=== PATIENT | male | born 1960 | race Caucasian/White ===

== ENCOUNTER 2018-06-15 00:34 | Emergency (ER) | payer OTHER ==
[2018-06-15 01:07] LABS: BASOPHILS # (AUTO) 0.1 10^3/uL (0.0-0.1); BASOPHILS % (AUTO) 0.8 %; EOSINOPHILS # (AUTO) 0.2 10^3/uL (0.0-0.7); EOSINOPHILS % (AUTO) 2.3 %; HGB - HEMOGLOBIN 13.5 g/dL (14.0-18.0); LYMPHOCYTES # (AUTO) 2.1 10^3/uL (1.5-3.5); LYMPHOCYTES % (AUTO) 20.4 %; MEAN CORPUSCULAR HEMOGLOBIN 29.9 pg (27.0-31.0); MEAN CORPUSCULAR HGB CONC 33.5 g/dL (32.0-36.0); MEAN CORPUSCULAR VOLUME 89.2 fL (80.0-94.0); MEAN PLATELET VOLUME 7.6 fL (7.4-11.4); MONOCYTES # (AUTO) 0.9 10^3/uL (0.0-1.0); MONOCYTES % (AUTO) 8.6 %; NEUTROPHILS # (AUTO) 7.1 10^3/uL (1.5-6.6); NEUTROPHILS % (AUTO) 67.9 %; PLT - PLATELET COUNT 248 10^3/uL (130-450); RED BLOOD COUNT 4.51 10^6/uL (4.70-6.10); RED CELL DISTRIBUTION WIDTH 13.9 % (12.0-15.0); WHITE BLOOD COUNT 10.4 x10^3/uL (4.8-10.8)
[2018-06-15 01:20] LABS: ALBUMIN 4.2 g/dL (3.2-5.5); ALBUMIN/GLOBULIN RATIO 1.4 (1.0-2.2); BILIRUBIN,TOTAL 0.5 mg/dL (0.2-1.0); CALCIUM 9.7 mg/dL (8.5-10.3); TOTAL PROTEIN 7.2 g/dL (6.7-8.2)
--- NOTE | 2018-06-15 01:50 | ED Physician Documentation ---
PD HPI CHEST PAIN - Stated complaint Stated Complaint: CP/CONFUSED - Chief complaint Chief Complaint: Neuro - History obtained from History obtained from: Patient, Friend - History of Present Illness Timing - onset: Enter time (23:00), Today Timing - onset during: Light activity Timing - details: Gradual onset, Waxing and waning Quality: Pain Location: Substernal, Right chest Radiation: No: Jaw, Neck, Back, Abdominal, Left upper extremity, Right upper extremity Improved by: Nothing Worsened by: Other (no exacerbating factors) Associated symptoms: No: Shortness of air, Diaphoresis, Nausea, Vomiting, Feeling faint / dizzy, General Weakness, Palpitations, Cough Similar symptoms before: Has not had sx before Recently seen: Not recently seen - Additional information Additional information: c/o mid/right chest pain since 11 PM while ambulating in his house. friend (lives with patient) notes intermittent slurred speech, although this is chronic. She also notes some mild and intermittent confusion since this morning. She says she came across a bottle of flexeril that had been prescribed 3 days a go and is now empty; she is not confident with how many were in there, but she thinks there were 30 pills. Review of Systems Constitutional: reports: Reviewed and negative Cardiac: reports: Chest pain / pressure. denies: Palpitations, Pedal edema, Calf pain Respiratory: reports: Reviewed and negative GI: reports: Reviewed and negative Musculoskeletal: denies: Neck pain, Back pain Neurologic: reports: Confused. denies: Generalized weakness, Focal weakness, Numbness, Altered mental status, Headache PD PAST MEDICAL HISTORY - Past Medical History Neuro: Headaches Psych: Depression, Anxiety, Bipolar disorder - Past Surgical History Past Surgical History: No General: Appendectomy Ortho: Shoulder arthroplasty, Other - Present Medications Home Medications: Ambulatory Orders Medication Instructions Recorded Confirmed Bupropion HCl [Bupropion Xl] 300 mg PO DAILY 06/15/18 06/15/18 Cyclobenzaprine [Flexeril] 10 mg PO TID 06/15/18 06/15/18 Gabapentin 800 mg PO TID 06/15/18 06/15/18 Ibuprofen 800 mg PO PRN PRN 06/15/18 06/15/18 QUEtiapine [SEROquel] 400 mg PO ACHS 06/15/18 06/15/18 buPROPion [Wellbutrin Xl] 150 mg PO DAILY 06/15/18 06/15/18 busPIRone [Buspar] 15 mg PO BID 06/15/18 06/15/18 rOPINIRole [Requip] 1 mg PO ACHS 06/15/18 06/15/18 - Allergies Allergies/Adverse Reactions: Allergies Allergy/AdvReac Type Severity Reaction Status Date / Time No Known Drug Allergies Allergy Verified 06/15/18 01:01 - Social History Does the pt smoke?: Yes Smoking Status: Current every day smoker Does the pt drink ETOH?: Yes Does the pt have substance abuse?: No - Immunizations Immunizations are current?: Yes PD ED PE NORMAL - Vitals Vital signs reviewed: Yes - General General: Alert and oriented X 3, No acute distress, Well developed/nourished, Other (occasional twitching in extremities without rhythmic contractions nor coordinated with other limbs) - HEENT HEENT: PERRL, EOMI, Moist mucous membranes - Neck Neck: Supple, no meningeal sign - Cardiac Cardiac: RRR, No murmur, No gallop, No rub - Respiratory Respiratory: No respiratory distress, Clear bilaterally - Abdomen Abdomen: Soft, Non tender - Derm Derm: Normal color, Warm and dry - Extremities Extremities: No edema - Neuro Neuro: Alert and oriented X 3, 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, No motor deficit, No sensory deficit, Normal speech Eye Opening: To Voice Motor: Obeys Commands Verbal: Oriented GCS Score: 14 Results - Vitals Vitals: Oxygen O2 Source Room air - EKG (time done) No standard instances Rate: Rate (enter#) (110), Tachy Rhythm: Sinus tachycardia Stuart: Normal Intervals: Normal [place] QRS: Normal Ischemia: Normal ST segments - Labs Labs: Laboratory Tests 06/15/18 06/15/18 06/15/18 00:58 00:58 00:58 WBC 10.4 RBC 4.51 L Hgb 13.5 L Hct 40.3 L MCV 89.2 MCH 29.9 MCHC 33.5 RDW 13.9 Plt Count 248 MPV 7.6 Neut # (Auto) 7.1 H Lymph # (Auto) 2.1 [place] # (Auto) 0.9 Eos # (Auto) 0.2 Baso # (Auto) 0.1 Absolute Nucleated RBC 0.00 Nucleated RBC % 0.0 Sodium 133 L Potassium 3.3 L Chloride 99 L Carbon Dioxide 25 Anion Gap 9.0 BUN 25 H Creatinine 2.0 H Estimated GFR (MDRD) 35 L Glucose 115 H Calcium 9.7 Total Bilirubin 0.5 AST 17 ALT 17 Alkaline Phosphatase 57 Troponin I < 0.04 Total Protein 7.2 Albumin 4.2 Globulin 3.0 Albumin/Globulin Ratio 1.4 Lipase 29 - Rads (name of study) chest xray Radiology: Prelim report reviewed, See rad report CT head Radiology: Prelim report reviewed, See rad report PD MEDICAL DECISION MAKING - ED course Complexity details: reviewed results, re-evaluated patient, considered differential, d/w patient ED course: During ED stay, he exhibited decreasing frequency of his twitching and this eventually resolved completely. Friend/roommate says patient typically has pulse b/w 100-110. I suspect some of the symptoms/signs are due to overdose of flexeril (sounds like he took 30 tablets in the span of 3 days). However, I emphasized the importance of following-up, as he might need further testing, particularly for his chest pain. Departure - Departure Disposition: 01 Home, Self Care Clinical Impression: Altered mental status Qualifiers: Altered mental status type: unspecified Qualified Code(s): R41.82 - Altered mental status, unspecified Overdose Qualifiers: Encounter type: initial encounter Injury intent: accidental or unintentional Qualified Code(s): T50.901A - Poisoning by unspecified drugs, medicaments and biological substances, accidental (unintentional), initial encounter Condition: Good Instructions: ED Altered Loc, ED Confusion, ED Overdose Accidental Comments: Follow up this Friday as scheduled Discharge Date/Time: 06/15/18 04:54
--- NOTE | 2018-06-15 02:49 | XRAY Report ---
Reason: chest pain Procedure Date: 06/15/2018 Accession Number: [id number] / [id number] Procedure: XR - Chest 2 View X-Ray CPT Code: 93904 FULL RESULT: EXAM: CHEST RADIOGRAPHY EXAM DATE: 06/15/2018 02:38 AM. CLINICAL HISTORY: Chest pain. COMPARISON: None. TECHNIQUE: 2 views. FINDINGS: Lungs/Pleura: No focal opacities evident. No pleural effusion. No pneumothorax. Normal volumes. Mediastinum: Heart and mediastinal contours are unremarkable. Other: None. IMPRESSION: Normal 2-view chest radiography. [facility]
--- NOTE | 2018-06-15 02:59 | CT Report ---
Reason: AMS Procedure Date: 06/15/2018 Accession Number: [id number] / [id number] Procedure: CT - HEAD WO CPT Code: FULL RESULT: EXAM: CT HEAD EXAM DATE: 06/15/2018 02:35 AM. CLINICAL HISTORY: Confusion and shaking, decreased mental status COMPARISON: None. TECHNIQUE: Multiaxial CT images were obtained from the foramen magnum to the vertex. Reformats: Sagittal and coronal. IV contrast: None. In accordance with CT protocol optimization, one or more of the following dose reduction techniques were utilized for this exam: automated exposure control, adjustment of mA and/or KV based on patient size, or use of iterative reconstructive technique. FINDINGS: Parenchyma: No intraparenchymal hemorrhage. No evidence of mass, midline shift, or CT findings of infarction. Richardson-white differentiation is distinct. Extraaxial Spaces: Normal for age. No subdural or epidural collections identified. Ventricles: Normal in size and position. Sinuses and Orbits: Imaged paranasal sinuses, orbits, and mastoids show no significant abnormality. Bones: No evidence of fracture or calvarial defect. Other: None. IMPRESSION: Normal head CT. RADIA
[2018-06-15 04:46] VITALS: BP 101/70
== END 2018-06-15 04:54 | disposition home or self-care (01) ==
LOC: ED 00:34
DX: R41.82 Altered mental status, unspecified (principal); T48.1X1A Poisoning by skeletal muscle relaxants [neuromuscular blocking agents], accidental (unintentional), initial encounter; R00.0 Tachycardia, unspecified; F17.200 Nicotine dependence, unspecified, uncomplicated
CPT/HCPCS: 36415; 70450; 71046; 80053; 83690; 84484; 85025; 93005; 99284

== ENCOUNTER 2018-11-10 14:45 | Emergency (ER) | payer OTHER ==
[2018-11-10 14:51] VITALS: BP 117/83
[2018-11-10] MEDS ORDERED: PROPARACAINE 0.5% OPHTH DROPS 15 ML EACHEYE STA (14:59)
--- NOTE | 2018-11-10 15:15 | ED Physician Documentation ---
PD HPI OPHTHO - Stated complaint Stated Complaint: L EYE IRRITATION - Chief complaint Chief Complaint: Heent - History obtained from History obtained from: Patient - History of Present Illness Timing - onset: How many days ago (2) Timing - duration: Days (2) Timing - details: Gradual onset Pain level max: 3 Pain level now: 2 Location: Left Quality / character: Aching Associated symptoms: Redness, Swelling, FB sensation. 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, Wears glasses, Wears contacts, Work related Similar symptoms before: Has not had sx before Recently seen: Not recently seen - Additional information Additional information: not on anticoagulants Review of Systems Eyes: denies: Loss of vision, Decreased vision, Photophobia Endocrine: denies: Easy bruising / bleeding PD PAST MEDICAL HISTORY - Past Medical History Neuro: Headaches Psych: Depression, Anxiety, Bipolar disorder - Past Surgical History Past Surgical History: No General: Appendectomy Ortho: Shoulder arthroplasty, Other - Present Medications Home Medications: Ambulatory Orders Medication Instructions Recorded Confirmed Bupropion HCl [Bupropion Xl] 300 mg PO DAILY 06/15/18 06/15/18 Cyclobenzaprine [Flexeril] 10 mg PO TID 06/15/18 06/15/18 Gabapentin 800 mg PO TID 06/15/18 06/15/18 Ibuprofen 800 mg PO PRN PRN 06/15/18 06/15/18 QUEtiapine [SEROquel] 400 mg PO [facility] 06/15/18 06/15/18 buPROPion [Wellbutrin Xl] 150 mg PO DAILY 06/15/18 06/15/18 busPIRone [Buspar] 15 mg PO BID 06/15/18 06/15/18 rOPINIRole [Requip] 1 mg PO [facility] 06/15/18 06/15/18 - Allergies Allergies/Adverse Reactions: Allergies Allergy/AdvReac Type Severity Reaction Status Date / Time No Known Drug Allergies Allergy Verified 11/10/18 14:51 - Social History Does the pt smoke?: Yes Smoking Status: Current every day smoker Does the pt drink ETOH?: Yes Does the pt have substance abuse?: No - Immunizations Immunizations are current?: Yes PD ED PE NORMAL - Vitals Vital signs reviewed: Yes - General General: Alert and oriented X 3, No acute distress - HEENT HEENT: Atraumatic, PERRL, EOMI, Moist mucous membranes (L eye - Small subconjunctival Hemorrhage, medial aspect. No visible foreign body. No fluorescein uptake. Lids everted.) - Derm Derm: Warm and dry - Neuro Neuro: Alert and oriented X 3 Results - Vitals Vitals: Vital Signs - 24 hr 11/10/18 14:48 Temperature 36.3 C L Heart Rate 91 Respiratory 15 Rate Blood Pressure 117/83 H O2 Saturation 96 Oxygen O2 Source Room air PD MEDICAL DECISION MAKING - ED course Complexity details: considered differential, d/w patient ED course: Patient with a small subconjunctival hemorrhage. Will utilize artificial tears and supportive care. No foreign body. Patient counseled regarding signs and symptoms for which I believe and urgent re-evaluation would be necessary. Patient with good understanding of and agreement to plan and is comfortable going home at this time This document was made in part using voice recognition software. While efforts are made to proofread this document, sound alike and grammatical errors may occur. Departure - Departure Disposition: 01 Home, Self Care Clinical Impression: Subconjunctival hemorrhage of left eye Condition: Good Instructions: ED Eye Injury Subconj Hemorrhage Follow-Up: Francisco Javier Nevarez MD [Provider Admit Priv/Credential] - Within 1 week Comments: Continue artificial tears at home. Putting these in the fridge will help as well. Return if you worsen. This should improve over the next few days. Discharge Date/Time: 11/10/18 15:30
== END 2018-11-10 15:30 | disposition home or self-care (01) ==
LOC: ED 14:45
DX: H11.32 Conjunctival hemorrhage, left eye (principal); F17.200 Nicotine dependence, unspecified, uncomplicated
CPT/HCPCS: 99282; J3490

== ENCOUNTER 2018-12-06 13:57 | Emergency (ER) | payer OTHER ==
[2018-12-06] MEDS ORDERED: SODIUM CHLORIDE 0.9% 1,000 ML IV STA (14:16)
--- NOTE | 2018-12-06 14:16 | ED Physician Documentation ---
PD HPI NVD - Stated complaint Stated Complaint: VOMITING - Chief complaint Chief Complaint: Abd Pain - History obtained from History obtained from: Patient - History of Present Illness Timing - onset: Yesterday Timing - details: Gradual onset Pain level now: 9 Associated symptoms: Abdominal pain, Dizzy. No: Fever, Dysuria Contributing factors: No: Sick contact, Bad food Improved by: Vomiting Similar symptoms before: Has not had sx before Recently seen: Not recently seen - Additonal information Additional information: This 58-year-old man presents with family member complaints that he started vomiting yesterday morning and he just feels like he is shaky "inside". He still dry heaving even now is been unable to keep anything down. He has not checked his temperature but he is felt hot he gets sweaty whenever he vomits. He has had no diarrhea. Has seen no blood in the emesis. He developed pain that started at the umbilicus and is now spread to include the lower abdomen bi laterally that he rates it a 9 out of 10. It seems to relieve itself just momentarily when he vomits. The bumps in the road on the way here did hurt. He has had diminished urinary output but denies any burning. The urine looks cloudy. He is been coughing but only with vomiting and is not bringing up any phlegm. He has been dizzy but has not passed out. Patient had an appendectomy 30 years ago but denies other abdominal surgeries. He denies use of alcohol but does smoke marijuana couple times a week and denies use of any other drugs. He does take mental health medications. He is retired. Patient reports that he is out of his buspirone for 2 days. Review of Systems Constitutional: reports: Sweats. denies: Fever Eyes: denies: Loss of vision Ears: denies: Ear pain Nose: denies: Congestion Throat: denies: Sore throat Cardiac: denies: Palpitations Respiratory: reports: Cough. denies: Dyspnea GI: reports: Abdominal Pain, Nausea, Vomiting. denies: Diarrhea, Hematemesis, Bloody / black stool : reports: Other (Decreased urinary output). denies: Dysuria Skin: denies: Rash Musculoskeletal: denies: Back pain Neurologic: denies: Syncope Endocrine: reports: Other (Patient is not a diabetic) PD PAST MEDICAL HISTORY - Past Medical History Neuro: Headaches Psych: Depression, Anxiety, Bipolar disorder - Past Surgical History Past Surgical History: No General: Appendectomy Ortho: Shoulder arthroplasty, Other - Present Medications Home Medications: Ambulatory Orders Medication Instructions Recorded Confirmed Bupropion HCl [Bupropion Xl] 300 mg PO DAILY 06/15/18 06/15/18 Gabapentin 800 mg PO TID 06/15/18 06/15/18 Ibuprofen 800 mg PO PRN PRN 06/15/18 06/15/18 QUEtiapine [SEROquel] 400 mg PO ACHS 06/15/18 06/15/18 buPROPion [Wellbutrin Xl] 150 mg PO DAILY 06/15/18 06/15/18 busPIRone [Buspar] 15 mg PO BID 06/15/18 06/15/18 rOPINIRole [Requip] 1 mg PO ACHS 06/15/18 06/15/18 Amoxicillin/Potassium Clav 2 each PO BID 7 Days #28 tab.er.12h 12/06/18 [Augmentin Xr 1,000-62.5 Tab] Buspirone HCl 30 mg PO BID #14 tablet 12/06/18 Hydrocodone/Acetaminophen 1 - 2 each PO Q6H PRN #6 tablet 12/06/18 [Hydrocodon-Acetaminophen 5-325] Ondansetron Odt [Zofran] 4 mg TL Q6H PRN #10 tablet 12/06/18 - Allergies Allergies/Adverse Reactions: Allergies Allergy/AdvReac Type Severity Reaction Status Date / Time No Known Drug Allergies Allergy Verified 12/06/18 14:03 - Social History Does the pt smoke?: Yes Smoking Status: Current every day smoker Does the pt drink ETOH?: Yes Does the pt have substance abuse?: No - Immunizations Immunizations are current?: Yes PD ED PE NORMAL - Vitals Vital signs reviewed: Yes - General General: Alert and oriented X 3, Other (Seated on the side of the bed he is got up pain expression on his face. The room does smell of marijuana.) - HEENT HEENT: Atraumatic, PERRL, EOMI, Other (Because membranes are dry) - Neck Neck: Supple, no meningeal sign, No adenopathy, Thyroid normal - Cardiac Cardiac: RRR, No murmur, Strong equal pulses, Other (Mild tachycardia) - Respiratory Respiratory: No respiratory distress, Clear bilaterally - Abdomen Abdomen: Soft, Other (Hypoactive bowel tones in the abdomen appears mildly distended. 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, No motor deficit, No sensory deficit, Normal speech - Psych Psych: Normal mood, Normal affect Results - Vitals Vitals: Vital Signs - 24 hr 12/06/18 12/06/18 12/06/18 14:00 14:02 16:46 Temperature 37.0 C 36.5 C Heart Rate 108 H 108 H 83 Respiratory 18 18 18 Rate Blood Pressure 137/91 H 137/91 H 133/84 H O2 Saturation 99 99 97 Oxygen O2 Source Room air - Labs Labs: Laboratory Tests 12/06/18 12/06/18 12/06/18 14:20 14:27 14:27 WBC 14.6 H RBC 5.44 Hgb 16.2 Hct 48.0 MCV 88.2 MCH 29.8 MCHC 33.8 RDW 13.7 Plt Count 388 MPV 9.4 Neut # (Auto) 11.1 H Lymph # (Auto) 2.1 [place] # (Auto) 1.2 H Eos # (Auto) 0.1 Baso # (Auto) 0.1 Absolute Nucleated RBC 0.00 Nucleated RBC % 0.0 Sodium 137 Potassium 4.0 Chloride 103 Carbon Dioxide 22 Anion Gap 12.0 BUN 20 Creatinine 1.2 Estimated GFR (MDRD) 62 L Glucose 116 H Lactic Acid Calcium 9.8 Total Bilirubin 0.8 AST 24 ALT 32 Alkaline Phosphatase 69 Total Protein 8.4 H Albumin 4.9 Globulin 3.5 Albumin/Globulin Ratio 1.4 Lipase 30 Urine Color YELLOW Urine Clarity CLEAR Urine pH 5.5 Ur Specific [place] 1.020 Urine Protein NEGATIVE Urine Glucose (UA) NEGATIVE Urine Ketones 15 H Urine Occult Blood NEGATIVE Urine Nitrite NEGATIVE Urine Bilirubin NEGATIVE Urine Urobilinogen 0.2 (NORMAL) Ur Leukocyte Esterase NEGATIVE Ur Microscopic Review NOT INDICATED Urine Culture Comments NOT INDICATED 12/06/18 14:46 WBC RBC Hgb Hct MCV MCH MCHC RDW Plt Count MPV Neut # (Auto) Lymph # (Auto) [place] # (Auto) Eos # (Auto) Baso # (Auto) Absolute Nucleated RBC Nucleated RBC % Sodium Potassium Chloride Carbon Dioxide Anion Gap BUN Creatinine Estimated GFR (MDRD) Glucose Lactic Acid 2.0 Calcium Total Bilirubin AST ALT Alkaline Phosphatase Total Protein Albumin Globulin Albumin/Globulin Ratio Lipase Urine Color Urine Clarity Urine pH Ur Specific [place] Urine Protein Urine Glucose (UA) Urine Ketones Urine Occult Blood Urine Nitrite Urine Bilirubin Urine Urobilinogen Ur Leukocyte Esterase Ur Microscopic Review Urine Culture Comments - Rads (name of study) CT abd/pelvis Radiology: See rad report (Diverticulosis) PD MEDICAL DECISION MAKING - ED course Complexity details: reviewed results, re-evaluated patient, d/w patient, d/w family ED course: WBC is mildly elevated with increased PMNs. BUN/Cr, LFTs and electrolytes are normal. U/A + for ketones. Patient given a liter of IV fluids, Dilaudid 2 mg and Zofran 4 mg IV. Patient stated that he was still having about 6 out of 10 pain right below the umbilicus. He was feeling a little bit nauseous still. CT showed diverticulosis without obvious diverticulitis however given the clinical picture I think that is the most likely etiology at this point. The patient is already status post appendectomy and he does not have a surgical abdomen. Of ordered Toradol 30 mg IV as Phenergan 12.5 mg and Zosyn 3.375 mg. Will reevaluate at the following those interventions. Patient also has out of his Wellbutrin and I have agreed to give him an emergency supply until he can refill at the end of this month. He states that he knocked some of them down the sink while he was shaving. 1740: Patient is feeling better still describes a bit of a sensation into the umbilicus like a screwdriver being twisted. He is no longer vomiting. Were to do a p.o. challenge and plan to send him home with oral antibiotics, a couple of doses of hydrocodone and Zofran. I am also been given an emergency fill on his buspirone. Departure - Departure Clinical Impression: Diverticulitis of gastrointestinal tract Abdominal pain Qualifiers: Abdominal location: lower abdomen, unspecified Qualified Code(s): R10.30 - Lower abdominal pain, unspecified Vomiting Qualifiers: Vomiting type: unspecified Vomiting Intractability: non-intractable Nausea presence: with nausea Qualified Code(s): R11.2 - Nausea with vomiting, unspecified Condition: Good Instructions: ED Diverticulitis Follow-Up: Nida Long [facility] [Provider Group] Prescriptions: Amoxicillin/Potassium Clav [Augmentin Xr 1,000-62.5 Tab] 2 each PO BID 7 Days #28 tab.er.12h Buspirone HCl 30 mg PO BID #14 tablet Hydrocodone/Acetaminophen [Hydrocodon-Acetaminophen 5-325] 1 - 2 each PO Q6H PRN #6 tablet PRN Reason: pain Ondansetron Odt [Zofran] 4 mg TL Q6H PRN #10 tablet PRN Reason: Nausea / Vomiting Comments: Eat a bland diet and push fluids. Take the antibiotic 2 tablets twice a day for a week. Use the Zofran if needed for nausea or vomiting. Take hydrocodone if needed for pain but do not drive or operate machinery if you are taking that medication. I have given you a prescription for 7 days of your buspirone at the stated dose of 30 mg twice a day that you are taking prior to losing some of them down the sink. You should follow-up with your primary care provider if you are not significantly improved in 48 hours or return if you have increasing pain, vomiting and unable to keep anything down, fever or other problems arise.
[2018-12-06 14:31] LABS: BASOPHILS # (AUTO) 0.1 10^3/uL (0.0-0.1); BASOPHILS % (AUTO) 0.6 %; EOSINOPHILS # (AUTO) 0.1 10^3/uL (0.0-0.7); EOSINOPHILS % (AUTO) 0.6 %; HGB - HEMOGLOBIN 16.2 g/dL (14.0-18.0); LYMPHOCYTES # (AUTO) 2.1 10^3/uL (1.5-3.5); LYMPHOCYTES % (AUTO) 14.1 %; MEAN CORPUSCULAR HEMOGLOBIN 29.8 pg (27.0-31.0); MEAN CORPUSCULAR HGB CONC 33.8 g/dL (32.0-36.0); MEAN CORPUSCULAR VOLUME 88.2 fL (80.0-94.0); MEAN PLATELET VOLUME 9.4 fL (7.4-11.4); MONOCYTES # (AUTO) 1.2 10^3/uL (0.0-1.0); MONOCYTES % (AUTO) 8.3 %; NEUTROPHILS # (AUTO) 11.1 10^3/uL (1.5-6.6); PLT - PLATELET COUNT 388 10^3/uL (130-450); RED BLOOD COUNT 5.44 10^6/uL (4.70-6.10); RED CELL DISTRIBUTION WIDTH 13.7 % (12.0-15.0); WHITE BLOOD COUNT 14.6 x10^3/uL (4.8-10.8)
[2018-12-06 14:32] LABS: BILIRUBIN,URINE NEGATIVE (NEGATIVE); GLUCOSE, URINE (UA) NEGATIVE (NEGATIVE); KETONES,URINE (UA) 15 mg/dL (NEGATIVE); LEUKOCYTE ESTERASE, URINE NEGATIVE (NEGATIVE); NITRITE,URINE NEGATIVE (NEGATIVE); OCCULT BLOOD,URINE NEGATIVE (NEGATIVE); PH,URINE 5.5 PH (5.0-7.5); PROTEIN,URINE NEGATIVE (NEGATIVE); UROBILINOGEN,URINE 0.2 (NORMAL) E.U./dL (NORMAL)
[2018-12-06 14:34] LABS: CLARITY,URINE CLEAR (CLEAR)
[2018-12-06] MEDS ORDERED: HYDROmorphone 1 MG/ML CARPUJECT IVP STA (14:36)
[2018-12-06] MEDS ORDERED: ONDANSETRON 4 MG/2 ML VIAL IVP STA (14:36)
[2018-12-06 14:45] LABS: ALBUMIN 4.9 g/dL (3.2-5.5); ALBUMIN/GLOBULIN RATIO 1.4 (1.0-2.2); BILIRUBIN,TOTAL 0.8 mg/dL (0.2-1.0); CALCIUM 9.8 mg/dL (8.5-10.3); CREATININE 1.2 mg/dL (0.6-1.2); TOTAL PROTEIN 8.4 g/dL (6.7-8.2)
[2018-12-06] MEDS ORDERED: IOVERSOL 320 100 ML VIAL IVP ONE ×2 (14:52→15:08)
--- NOTE | 2018-12-06 15:30 | CT Report ---
Reason: abd pain Procedure Date: 12/06/2018 Accession Number: [id number] / [id number] Procedure: CT - Abdomen/Pelvis W CPT Code: FULL RESULT: EXAM: CT ABDOMEN AND PELVIS EXAM DATE: 12/06/2018 03:08 PM. CLINICAL HISTORY: Abd pain. COMPARISONS: None. TECHNIQUE: Routine helical CT imaging was performed through the abdomen and pelvis. IV contrast: OPTI 320 90ML. Enteric contrast: No. Reconstructions: Coronal and sagittal. In accordance with CT protocol optimization, one or more of the following dose reduction techniques were utilized for this exam: automated exposure control, adjustment of mA and/or KV based on patient size, or use of iterative reconstructive technique. FINDINGS: Lung Bases: Unremarkable. Liver: Normal. No masses. Gallbladder/Bile Ducts: Unremarkable. Spleen: Normal. Pancreas: Normal. Adrenal Glands: Normal. Kidneys: Normal. No masses or hydronephrosis. Peritoneal Cavity/Bowel: Normal. No free fluid, free air or adenopathy. No masses or acute inflammatory process. Appendix not well seen. Diffuse colonic diverticulosis however no diverticulitis. Pelvic Organs: Normal. The bladder and visualized pelvic organs are within normal limits. Vasculature: No aneurysms or other significant abnormality. Bones: No significant abnormality. Other: Coarse calcific foci are seen in penile parenchyma. IMPRESSION: No acute abdominal pathology. Appendix not seen. Diffuse colonic diverticulosis however no diverticulitis. Coarse calcific foci are seen in penile parenchyma. ?Clinical significance. [facility]
[2018-12-06] MEDS ORDERED: KETOROLAC 30 MG/ML VIAL IVP STA (15:43)
[2018-12-06] MEDS ORDERED: PIPERACILLIN/TAZOBACTAM 3.375 GM in SODIUM CHLORIDE 0.9% MINIBAG 100 ML IV STA (15:43)
[2018-12-06] MEDS ORDERED: PROMETHAZINE INJ 12.5 MG in SODIUM CHLORIDE 0.9% 50 ML IV STA (15:44)
[2018-12-06 18:01] VITALS: BP 128/80
== END 2018-12-06 18:00 | disposition home or self-care (01) ==
LOC: ED 13:57
DX: K57.92 Diverticulitis of intestine, part unspecified, without perforation or abscess without bleeding (principal); T43.296A Underdosing of other antidepressants, initial encounter; Z91.138 Patient's unintentional underdosing of medication regimen for other reason; F17.200 Nicotine dependence, unspecified, uncomplicated
CPT/HCPCS: 36415; 74177; 80053; 81003; 83605; 83690; 85025; 96365; 96368; 96375; 99284; 99285; J1170; J7040; Q9967; 81001; 87086

== ENCOUNTER 2019-01-09 10:34 | Emergency (ER) | payer MEDICAID, OTHER ==
--- NOTE | 2019-01-09 11:06 | ED Physician Documentation ---
History of Present Illness - Stated complaint Stated Complaint: ABD PX - Chief complaint Chief Complaint: Abd Pain - Additonal information Additional information: This is a 58-year-old male with history of anxiety, who presents with General malaise, Vomiting, diarrhea. Patient states began having rhinorrhea and some cough yesterday, he has had some general malaise associated with this, and then began having non-bloody diarrhea and nonbloody, nonbilious vomiting this morning. He has a mild sore throat as well. He also has had some vague abdominal discomfort which was somewhat migratory. This morning upon arriving to the ED he began feeling anxious and like he could not catch his breath. He denies any chest pain. No leg swelling, history of blood clots, hemoptysis. Review of Systems Constitutional: denies: Fever Nose: reports: Rhinorrhea / runny nose Cardiac: denies: Chest pain / pressure Respiratory: reports: Dyspnea GI: denies: Vomiting, Diarrhea : denies: Dysuria Skin: denies: Rash Musculoskeletal: denies: Neck pain Neurologic: reports: Generalized weakness Psychiatric: reports: Anxiety Immunocompromised: denies: Immunocompromised PD PAST MEDICAL HISTORY - Past Medical History Neuro: Headaches Psych: Depression, Anxiety, Bipolar disorder - Past Surgical History Past Surgical History: No General: Appendectomy Ortho: Shoulder arthroplasty, Other - Present Medications Home Medications: Ambulatory Orders Medication Instructions Recorded Confirmed Bupropion HCl [Bupropion Xl] 300 mg PO DAILY 06/15/18 06/15/18 Gabapentin 800 mg PO TID 06/15/18 06/15/18 Ibuprofen 800 mg PO PRN PRN 06/15/18 06/15/18 QUEtiapine [SEROquel] 400 mg PO [facility] 06/15/18 06/15/18 buPROPion [Wellbutrin Xl] 150 mg PO DAILY 06/15/18 06/15/18 busPIRone [Buspar] 15 mg PO BID 06/15/18 06/15/18 rOPINIRole [Requip] 1 mg PO ACHS 06/15/18 06/15/18 Amoxicillin/Potassium Clav 2 each PO BID 7 Days #28 tab.er.12h 12/06/18 [Augmentin Xr 1,000-62.5 Tab] Buspirone HCl 30 mg PO BID #14 tablet 12/06/18 Hydrocodone/Acetaminophen 1 - 2 each PO Q6H PRN #6 tablet 12/06/18 [Hydrocodon-Acetaminophen 5-325] Ondansetron Odt [Zofran] 4 mg TL Q6H PRN #10 tablet 12/06/18 Ondansetron Odt [Zofran] 4 mg TL Q6H PRN #10 tablet 01/09/19 - Allergies Allergies/Adverse Reactions: Allergies Allergy/AdvReac Type Severity Reaction Status Date / Time No Known Drug Allergies Allergy Verified 12/06/18 14:03 - Social History Does the pt smoke?: Yes Smoking Status: Current every day smoker Does the pt drink ETOH?: Yes Does the pt have substance abuse?: No - Immunizations Immunizations are current?: Yes PD ED PE NORMAL - Vitals Vital signs reviewed: Yes - General General: Alert and oriented X 3 - HEENT HEENT: PERRL - Neck Neck: Supple, no meningeal sign - Cardiac Cardiac: RRR - Respiratory Respiratory: No respiratory distress, Other (Slight end expiratory wheeze diffusely, otherwise clear to auscultation) - Abdomen Abdomen: Soft, Non tender, Non distended - Derm Derm: Warm and dry - Extremities Extremities: No deformity - Neuro Neuro: Alert and oriented X 3 Results - Vitals Vitals: Oxygen O2 Source Room air - Labs Labs: Laboratory Tests 01/09/19 01/09/19 01/09/19 10:55 10:55 13:30 WBC 9.5 RBC 5.08 Hgb 15.4 Hct 45.4 MCV 89.4 MCH 30.3 MCHC 33.9 RDW 13.6 Plt Count 376 MPV 9.5 Neut # (Auto) 6.7 H Lymph # (Auto) 1.7 [place] # (Auto) 0.8 Eos # (Auto) 0.1 Baso # (Auto) 0.1 Absolute Nucleated RBC 0.00 Nucleated RBC % 0.0 Sodium 140 Potassium 4.1 Chloride 110 Carbon Dioxide 20 L Anion Gap 10.0 BUN 13 Creatinine 1.0 Estimated GFR (MDRD) 77 L Glucose 124 H Calcium 9.5 Total Bilirubin 0.9 AST 18 ALT 15 Alkaline Phosphatase 59 Troponin I High Sens Total Protein 8.0 Albumin 4.6 Globulin 3.4 Albumin/Globulin Ratio 1.4 Lipase 51 Urine Color YELLOW Urine Clarity CLEAR Urine pH 6.0 Ur Specific [place] 1.020 Urine Protein NEGATIVE Urine Glucose (UA) NEGATIVE Urine Ketones TRACE Urine Occult Blood NEGATIVE Urine Nitrite NEGATIVE Urine Bilirubin NEGATIVE Urine Urobilinogen 0.2 (NORMAL) Ur Leukocyte Esterase NEGATIVE Ur Microscopic Review NOT INDICATED Urine Culture Comments NOT INDICATED 01/09/19 14:05 WBC RBC Hgb Hct MCV MCH MCHC RDW Plt Count MPV Neut # (Auto) Lymph # (Auto) [place] # (Auto) Eos # (Auto) Baso # (Auto) Absolute Nucleated RBC Nucleated RBC % Sodium Potassium Chloride Carbon Dioxide Anion Gap BUN Creatinine Estimated GFR (MDRD) Glucose Calcium Total Bilirubin AST ALT Alkaline Phosphatase Troponin I High Sens 2.3 Total Protein Albumin Globulin Albumin/Globulin Ratio Lipase Urine Color Urine Clarity Urine pH Ur Specific [place] Urine Protein Urine Glucose (UA) Urine Ketones Urine Occult Blood Urine Nitrite Urine Bilirubin Urine Urobilinogen Ur Leukocyte Esterase Ur Microscopic Review Urine Culture Comments - Rads (name of study) CXR Radiology: Other CT abd/pelvis Radiology: Other (Small fat containing umbilical hernia, otherwise unremarkable.) PD MEDICAL DECISION MAKING - ED course Complexity details: considered differential (Viral syndrome, gastroenteritis, biliary colic, enteritis, pancreatitis, pneumonia, pneumothorax) ED course: On arrival patient has unremarkable vital signs but he does appear to be anxious and began hyperventilating while I was in the room. I was able to calm him down and return his breathing rate to normal with prompting, and his oxygen sat uration and pulse remained normal during the entire episode. CXR negative, and on re-evaluation patient's shortness of breath has entirely resolved, consistent with a stress reaction/anxiety. Symptoms and exam are inconsistent with PE or dysrhytmia. Troponin negative, ACS extremely unlikely. CBC, abdominal panel, UA unrevealing. Patient's primary complaint is vomiting and diarrhea. He was given a fluid bolus, and several rounds of zofran. He continued to have some vomiting, CT obtained and did not show an obvious cause of his symptoms. He does have a small umbilical hernia, but this is non-tender and reducible. On re-evaluation patient is feeling better. I discussed our results, and with an additional dose of anti-emetic patient is able to tolerate PO fluids. I think he likely has a viral gastroenteritis. I discussed supportive care and strict return precautions with any worsening or changing symptoms. Abdomen is benign. Patient would like to go home as he now feels that he will be able to hold down fluids. He is discharged in the care of family. Departure - Departure Disposition: 01 Home, Self Care Clinical Impression: Gastroenteritis Condition: Good Instructions: ED Gastroenteritis Viral Follow-Up: Your,PCP [Other] - Within 1 week Prescriptions: Ondansetron Odt [Zofran] 4 mg TL Q6H PRN #10 tablet PRN Reason: Nausea / Vomiting Comments: You were seen today for vomiting and diarrhea, your labs are reassuring, I think you likely have a gastroenteritis or stomach bug which is usually caused by a virus. Your CT scan showed an umbilical hernia, Please follow with your primary care provider on this, if it is causing you any issues you may need to see a surgeon. If you develop vomiting despite the nausea medications, inability to hydrate, or increasing or changing abdominal pain, or any other concerning symptoms, please return to the emergency department. Discharge Date/Time: 01/09/19 17:50
[2019-01-09 11:08] LABS: BASOPHILS # (AUTO) 0.1 10^3/uL (0.0-0.1); BASOPHILS % (AUTO) 0.6 %; EOSINOPHILS # (AUTO) 0.1 10^3/uL (0.0-0.7); EOSINOPHILS % (AUTO) 1.5 %; HGB - HEMOGLOBIN 15.4 g/dL (14.0-18.0); LYMPHOCYTES # (AUTO) 1.7 10^3/uL (1.5-3.5); LYMPHOCYTES % (AUTO) 18.4 %; MEAN CORPUSCULAR HEMOGLOBIN 30.3 pg (27.0-31.0); MEAN CORPUSCULAR HGB CONC 33.9 g/dL (32.0-36.0); MEAN CORPUSCULAR VOLUME 89.4 fL (80.0-94.0); MEAN PLATELET VOLUME 9.5 fL (7.4-11.4); MONOCYTES # (AUTO) 0.8 10^3/uL (0.0-1.0); MONOCYTES % (AUTO) 8.4 %; NEUTROPHILS # (AUTO) 6.7 10^3/uL (1.5-6.6); NEUTROPHILS % (AUTO) 70.7 %; PLT - PLATELET COUNT 376 10^3/uL (130-450); RED BLOOD COUNT 5.08 10^6/uL (4.70-6.10); RED CELL DISTRIBUTION WIDTH 13.6 % (12.0-15.0); WHITE BLOOD COUNT 9.5 x10^3/uL (4.8-10.8)
[2019-01-09] MEDS ORDERED: SODIUM CHLORIDE 0.9% 1,000 ML IV ONE (11:19)
[2019-01-09] MEDS ORDERED: IPRATROPIUM/ALBUTEROL 3 ML NEB INH STA (11:19)
[2019-01-09 11:22] LABS: ALBUMIN 4.6 g/dL (3.2-5.5); ALBUMIN/GLOBULIN RATIO 1.4 (1.0-2.2); BILIRUBIN,TOTAL 0.9 mg/dL (0.2-1.0); CALCIUM 9.5 mg/dL (8.5-10.3)
--- NOTE | 2019-01-09 11:43 | XRAY Report ---
Reason: chest pain Procedure Date: 01/09/2019 Accession Number: [id number] / [id number] Procedure: XR - Chest 1 View X-Ray CPT Code: 45129 FULL RESULT: EXAM: CHEST RADIOGRAPHY EXAM DATE: 01/09/2019 11:36 AM. CLINICAL HISTORY: Chest pain. COMPARISON: CHEST 2 VIEW 06/15/2018 2:23 AM. TECHNIQUE: 1 view. FINDINGS: Lungs/Pleura: Unchanged linear left greater than right basilar pulmonary opacities likely reflect atelectasis or scarring. No new consolidation. No evidence for pneumothorax. Mediastinum: Stable heart size and mediastinum. Other: Probable remote left lateral eighth rib fracture. No acute osseous thoracic abnormality seen. IMPRESSION: No radiographic evidence for acute cardiopulmonary process. RADIA
[2019-01-09 13:36] LABS: BILIRUBIN,URINE NEGATIVE (NEGATIVE); GLUCOSE, URINE (UA) NEGATIVE (NEGATIVE); KETONES,URINE (UA) TRACE mg/dL (NEGATIVE); LEUKOCYTE ESTERASE, URINE NEGATIVE (NEGATIVE); NITRITE,URINE NEGATIVE (NEGATIVE); OCCULT BLOOD,URINE NEGATIVE (NEGATIVE); PROTEIN,URINE NEGATIVE (NEGATIVE); UROBILINOGEN,URINE 0.2 (NORMAL) E.U./dL (NORMAL)
[2019-01-09 13:37] LABS: CLARITY,URINE CLEAR (CLEAR)
[2019-01-09] MEDS ORDERED: FAMOTIDINE 20 MG/2 ML VIAL IVP STA (13:59)
[2019-01-09] MEDS ORDERED: ONDANSETRON 4 MG/2 ML VIAL IVP STA ×2 (13:59→16:27)
[2019-01-09] MEDS ORDERED: IOVERSOL 320 100 ML VIAL IVP ONE ×2 (14:46→14:57)
--- NOTE | 2019-01-09 15:29 | CT Report ---
Reason: vomiting, upper abdominal pain Procedure Date: 01/09/2019 Accession Number: [id number] / [id number] Procedure: CT - Abdomen/Pelvis W CPT Code: FULL RESULT: EXAM: CT ABDOMEN AND PELVIS EXAM DATE: 01/09/2019 02:56 PM. CLINICAL HISTORY: Vomiting, upper abdominal pain. COMPARISONS: ABDOMEN/PELVIS W/ 12/06/2018 2:59 PM. TECHNIQUE: Routine helical CT imaging was performed through the abdomen and pelvis. IV contrast: OPTI 320 90ML. Enteric contrast: No. Reconstructions: Coronal and sagittal. In accordance with CT protocol optimization, one or more of the following dose reduction techniques were utilized for this exam: automated exposure control, adjustment of mA and/or KV based on patient size, or use of iterative reconstructive technique. FINDINGS: Lung Bases: Unremarkable. Liver: Normal. No masses. Gallbladder/Bile Ducts: Unremarkable. Spleen: Normal. Pancreas: Normal. Adrenal Glands: Normal. Kidneys: Normal. No masses or hydronephrosis. Peritoneal Cavity/Bowel: Normal. No free fluid, free air or adenopathy. No masses or acute inflammatory process. No evidence of acute appendicitis. There is a small fat-containing umbilical hernia. Pelvic Organs: Normal. The bladder and visualized pelvic organs are within normal limits. Vasculature: No aneurysms or other significant abnormality. Bones: No significant abnormality. Other: None. IMPRESSION: 1. Small fat-containing umbilical hernia. 2. Otherwise negative. RADIA
[2019-01-09 16:36] VITALS: BP 122/84
[2019-01-09] MEDS ORDERED: ONDANSETRON ODT 4 MG Prepack 2 TL PRN (17:00)
== END 2019-01-09 17:50 | disposition home or self-care (01) ==
LOC: ED 10:34
DX: K52.9 Noninfective gastroenteritis and colitis, unspecified (principal); K42.9 Umbilical hernia without obstruction or gangrene; F41.9 Anxiety disorder, unspecified; F17.200 Nicotine dependence, unspecified, uncomplicated
CPT/HCPCS: 36415; 71045; 74177; 80053; 81003; 83690; 84484; 85025; 94640; 96361; 96374; 96375; 99284; Q9967; 81001; 87086

== ENCOUNTER 2019-02-03 15:41 | Emergency (ER) | payer MEDICAID ==
--- NOTE | 2019-02-03 16:49 | ED Physician Documentation ---
PD HPI HEADACHE - Stated complaint Stated Complaint: DIZZY - Chief complaint Chief Complaint: Neuro - History obtained from History obtained from: Patient - History of Present Illness Timing - onset: Yesterday Timing - details: Gradual onset (He states he woke yesterday morning with the pain in the right posterior neck radiating up into the back of the head with a feeling of spasms at times. He states that he feels as though the neck pain and spasm is pulling on his right side of his face and he feels like his eyeball is being pulled backward. This does sound unusual. He denies any particular injury. He denies any rash or fevers. He denies any focal weaknesses.), Still present Worst headache ever?: Worst headache ever? Location: Back, Right Quality: Aching, Stabbing (He feels like the pain is sharp in the right base of the head and upper neck with tightness feeling at times.) Associated symptoms: Eye pain. No: Fever, Nausea, Vomiting, Weakness, Numbness Improved by: No: Rest, Dark room Worsened by: No: Light, Noise Contributing factors: No: Anticoagulated, Recent illness, Trauma Similar symptoms before: No diagnosis (He has had similar pains intermittently in the past few months lasting for just a few hours at a time. He has had not sought evaluation for them. He denies any history of migraines.) Review of Systems Constitutional: denies: Fever, Chills Eyes: denies: Loss of vision, Photophobia Nose: denies: Rhinorrhea / runny nose, Congestion Throat: denies: Sore throat Respiratory: denies: Cough GI: denies: Abdominal Pain, Nausea, Vomiting, Diarrhea Skin: denies: Rash, Lesions Neurologic: reports: Headache. denies: Focal weakness, Numbness, Near syncope, Confused, Altered mental status, Head injury PD PAST MEDICAL HISTORY - Past Medical History Neuro: Headaches Psych: Depression, Anxiety, Bipolar disorder - Past Surgical History Past Surgical History: No General: Appendectomy Ortho: Shoulder arthroplasty, Other - Present Medications Home Medications: Ambulatory Orders Medication Instructions Recorded Confirmed Bupropion HCl [Bupropion Xl] 300 mg PO DAILY 06/15/18 06/15/18 Gabapentin 800 mg PO TID 06/15/18 06/15/18 Ibuprofen 800 mg PO PRN PRN 06/15/18 06/15/18 QUEtiapine [SEROquel] 400 mg PO ACHS 06/15/18 06/15/18 buPROPion [Wellbutrin Xl] 150 mg PO DAILY 06/15/18 06/15/18 busPIRone [Buspar] 15 mg PO BID 06/15/18 06/15/18 rOPINIRole [Requip] 1 mg PO ACHS 06/15/18 06/15/18 Amoxicillin/Potassium Clav 2 each PO BID 7 Days #28 tab.er.12h 12/06/18 [Augmentin Xr 1,000-62.5 Tab] Buspirone HCl 30 mg PO BID #14 tablet 12/06/18 Hydrocodone/Acetaminophen 1 - 2 each PO Q6H PRN #6 tablet 12/06/18 [Hydrocodon-Acetaminophen 5-325] Ondansetron Odt [Zofran] 4 mg TL Q6H PRN #10 tablet 12/06/18 Ondansetron Odt [Zofran] 4 mg TL Q6H PRN #10 tablet 01/09/19 Amoxicillin 500 mg PO TID #21 capsule 02/03/19 Cetirizine [ZyrTEC] 10 mg PO DAILY #15 tablet 02/03/19 Naproxen 500 mg PO BID #20 tablet 02/03/19 Oxycodone HCl/Acetaminophen 1 each PO Q6H PRN #20 tablet 02/03/19 [Percocet 5-325 mg Tablet] Tizanidine HCl 4 mg PO TID PRN #25 capsule 02/03/19 dexAMETHasone [Decadron] 4 mg PO DAILY #5 tablet 02/03/19 - Allergies Allergies/Adverse Reactions: Allergies Allergy/AdvReac Type Severity Reaction Status Date / Time No Known Drug Allergies Allergy Verified 02/03/19 16:10 - Social History Does the pt smoke?: Yes Smoking Status: Current every day smoker Does the pt drink ETOH?: Yes Does the pt have substance abuse?: No - Immunizations Immunizations are current?: Yes PD ED PE NORMAL - Vitals Vital signs reviewed: Yes - General General: Alert and oriented X 3, Well developed/nourished, Other (He appears uncomfortable due to pain in the right back of the neck. He has guarded range of motion of the neck. He has tenderness in the right upper trapezius muscle near the insertion at the base of the skull.) - HEENT HEENT: Atraumatic, PERRL, EOMI, Ears normal, Pharynx benign - Neck Neck: Supple, no meningeal sign, No adenopathy - Cardiac Cardiac: RRR, No murmur - Respiratory Respiratory: Clear bilaterally - Derm Derm: Normal color, Warm and dry - Extremities Extremities: No tenderness to palpate, Normal ROM s pain - Neuro Neuro: Alert and oriented X 3, patient case coordinator 2-12 intact, No motor deficit, No sensory deficit, Normal speech, Other Eye Opening: Spontaneous Motor: Obeys Commands Verbal: Oriented GCS Score: 15 Results - Vitals Vitals: Vital Signs - 24 hr 02/03/19 02/03/19 16:10 17:43 Temperature 37.1 C Heart Rate 88 82 Respiratory 17 20 Rate Blood Pressure 118/70 107/70 O2 Saturation 96 97 Oxygen O2 Source Room air - Labs Labs: Laboratory Tests 02/03/19 02/03/19 17:30 17:30 WBC 7.3 RBC 4.92 Hgb 15.2 Hct 44.9 MCV 91.3 MCH 30.9 MCHC 33.9 RDW 13.8 Plt Count 294 MPV 9.2 Neut # (Auto) 4.7 Lymph # (Auto) 1.3 [place] # (Auto) 1.0 Eos # (Auto) 0.1 Baso # (Auto) 0.1 Absolute Nucleated RBC 0.00 Nucleated RBC % 0.0 Manual Slide Review Indicated Platelet Estimate NORMAL (130-450,000) Platelet Morphology NORMAL APPEARANCE RBC Morph Micro Appear NORMAL APPEARANCE Sodium 135 Potassium 3.7 Chloride 103 Carbon Dioxide 23 Anion Gap 9.0 BUN 14 Creatinine 1.1 Estimated GFR (MDRD) 69 L Glucose 76 Calcium 9.3 Total Bilirubin 0.4 AST 17 ALT 16 Alkaline Phosphatase 64 Total Protein 7.8 Albumin 4.7 Globulin 3.1 Albumin/Globulin Ratio 1.5 Lipase 39 - Rads (name of study) head and neck agnio Radiology: Prelim report reviewed (no acute process; chronic maxillary sinusitis.), See rad report PD MEDICAL DECISION MAKING - ED course Complexity details: reviewed results, considered differential (Consider some vascular cause given the sharp pain extending to the base of the head. It may be just muscular. We will get a CT and CTA of the neck and head to better evaluate for issues such as dissection, tumors, vascular problems.), d/w patient Departure - Departure Disposition: 01 Home, Self Care Clinical Impression: Neck pain on right side Sinusitis Qualifiers: Sinusitis location: maxillary Chronicity: chronic Qualified Code(s): J32.0 - Chronic maxillary sinusitis Condition: Stable Record reviewed to determine appropriate education?: Yes Instructions: ED Neck Pain No Trauma, ED Sinusitis Abx Tx Prescriptions: Amoxicillin 500 mg PO TID #21 capsule Cetirizine [ZyrTEC] 10 mg PO DAILY #15 tablet dexAMETHasone [Decadron] 4 mg PO DAILY #5 tablet Naproxen 500 mg PO BID #20 tablet Oxycodone HCl/Acetaminophen [Percocet 5-325 mg Tablet] 1 each PO Q6H PRN #20 tablet PRN Reason: pain Tizanidine HCl 4 mg PO TID PRN #25 capsule PRN Reason: Spasms Comments: Heat and gentle stretching for the neck. There may be some strain and muscle spasms going on and so use the anti-inflammatory and muscle relaxants as prescribed. Add pain medicine if needed. Your CT scans are normal without any signs of vascular problems such as clots or dissections. There are no structural abnormalities such as bleeding tumors swelling. There is some sinus inflammation in the maxillary area, so some of the facial and eye symptoms could be from sinus inflammation instead. I presume the neck pain is from a muscular cause. Recheck if other symptoms develop over the next few days such as localized weakness, fevers, rash, inc reasing symptoms.
[2019-02-03] MEDS ORDERED: KETOROLAC 30 MG/ML VIAL IVP STA (17:09)
[2019-02-03] MEDS ORDERED: SODIUM CHLORIDE 0.9% 1,000 ML IV ONE (17:09)
[2019-02-03] MEDS ORDERED: HYDROmorphone 2 MG/ML VIAL IVP STA (17:09)
[2019-02-03] MEDS ORDERED: IOVERSOL 320 100 ML VIAL IVP ONE ×2 (17:11→18:44)
[2019-02-03 17:38] LABS: BASOPHILS # (AUTO) 0.1 10^3/uL (0.0-0.1); EOSINOPHILS # (AUTO) 0.1 10^3/uL (0.0-0.7); EOSINOPHILS % (AUTO) 1.6 %; HGB - HEMOGLOBIN 15.2 g/dL (14.0-18.0); LYMPHOCYTES # (AUTO) 1.3 10^3/uL (1.5-3.5); LYMPHOCYTES % (AUTO) 18.4 %; MEAN CORPUSCULAR HEMOGLOBIN 30.9 pg (27.0-31.0); MEAN CORPUSCULAR HGB CONC 33.9 g/dL (32.0-36.0); MEAN CORPUSCULAR VOLUME 91.3 fL (80.0-94.0); MEAN PLATELET VOLUME 9.2 fL (7.4-11.4); MONOCYTES % (AUTO) 13.7 %; NEUTROPHILS # (AUTO) 4.7 10^3/uL (1.5-6.6); NEUTROPHILS % (AUTO) 64.9 %; PLT - PLATELET COUNT 294 10^3/uL (130-450); RED BLOOD COUNT 4.92 10^6/uL (4.70-6.10); RED CELL DISTRIBUTION WIDTH 13.8 % (12.0-15.0); WHITE BLOOD COUNT 7.3 x10^3/uL (4.8-10.8)
[2019-02-03 17:51] LABS: ALBUMIN 4.7 g/dL (3.2-5.5); ALBUMIN/GLOBULIN RATIO 1.5 (1.0-2.2); BILIRUBIN,TOTAL 0.4 mg/dL (0.2-1.0); CALCIUM 9.3 mg/dL (8.5-10.3); CREATININE 1.1 mg/dL (0.6-1.2); TOTAL PROTEIN 7.8 g/dL (6.7-8.2)
[2019-02-03] MEDS ORDERED: HYDROmorphone 1 MG/ML CARPUJECT IVP STA ×2 (18:07→19:24)
[2019-02-03 18:17] LABS: PLATELET ESTIMATE, MANUAL NORMAL (130-450,000) (NORMAL); PLATELET MORPHOLOGY NORMAL APPEARANCE (NORMAL); RBC MORPHOLOGY (MULTIPLE) NORMAL APPEARANCE (NORMAL)
--- NOTE | 2019-02-03 19:21 | CT Report ---
Reason: right posterior neck pain/headache Procedure Date: 02/03/2019 Accession Number: [id number] / [id number] Procedure: CT - ANGIO NECK W CPT Code: Final Report FULL RESULT: EXAM: CT ANGIOGRAM NECK EXAM DATE: 02/03/2019 06:34 PM. CLINICAL HISTORY: Right posterior neck pain/headache. COMPARISON: HEAD W/O 06/15/2018 2:18 AM. HEAD ANGIO 02/03/2019 6:21 PM. TECHNIQUE: Routine axial helical imaging was performed from the skull base through the aortic arch. Reconstructions: Routine multiplanar 3D MIP reconstructions. IV Contrast: Optiray-320 mL. Evaluation of arterial stenosis is based on a NASCET method of measurement. In accordance with CT protocol optimization, one or more of the following dose reduction techniques were utilized for this exam: automated exposure control, adjustment of mA and/or KV based on patient size, or use of iterative reconstructive technique. FINDINGS: There is subsegmental atelectasis demonstrated within the bilateral lung apices. There is respiratory motion superimposed on the images of the lung apices. There are multilevel mild to moderate degenerative changes of the cervical spine. There is mucoperiosteal thickening of the bilateral maxillary sinus camacho. There is circumferential mucosal thickening in the right maxillary sinus. There is extensive mucosal thickening demonstrated within the left maxillary sinus. There is mild mucosal thickening in the bilateral anterior and posterior ethmoid complexes. The sphenoid air cells are normally aerated. The bilateral frontal sinuses and frontal recesses are normally aerated. The imaged portions of the orbits are normal in appearance. The openings of the eustachian tubes are normally aerated. The torus tubarius are symmetric. The bilateral parapharyngeal spaces exhibit normal fat densities. The retropharyngeal space exhibits normal fat densities. The right and left parotid spaces enhance symmetrically. The bilateral submandibular glands exhibit symmetric size and enhancement. The extrinsic and the intrinsic muscles of the tongue exhibit symmetric densities. There is no significant adenopathy in the level IA rene chain. There is no significant adenopathy within the bilateral level IB rene chains. The bilateral submandibular glands exhibit symmetric size and enhancement. The free and fixed margins of the epiglottis are normal in appearance. The preepiglottic space and paraglottic spaces exhibit normal fat densities. The false and true cords are normal in appearance. The subglottic space is normal. The bilateral thyroid lobes enhance symmetrically. There is an area of mucosal thickening along the right wall of the trachea measuring 10 mm (97, 2). The cervical and thoracic esophagus within the provided field of view is unremarkable. There is no significant adenopathy by size criteria in the bilateral deep cervical or spinal accessory chains. 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 The left common carotid artery, carotid bulb, and extracranial left internal carotid artery are smooth and nonstenotic. The right common carotid artery, carotid bulb, and extracranial right internal carotid artery are smooth and nonstenotic. The right vertebral artery V1, V2, V3 segments are without flow limiting stenosis. The left vertebral artery V1, V2, and V3 segments are without flow limiting stenosis. IMPRESSION: 1. There is no hemodynamically significant stenosis within the neck. 2. There are changes of mucoperiosteal thickening of the bilateral maxillary sinus camacho consistent with changes from a chronic maxillary sinusitis. RAD[facility]
[2019-02-03] MEDS ORDERED: DEXAMETHASONE 10 MG/ML VIAL IVP STA (19:24)
--- NOTE | 2019-02-03 19:34 | CT Report ---
Reason: right neck pain/headache Procedure Date: 02/03/2019 Accession Number: [id number] / [id number] Procedure: CT - ANGIO HEAD W/WO CPT Code: Final Report FULL RESULT: EXAM: CT ANGIOGRAM HEAD. CT SCAN OF THE HEAD WITHOUT AND WITH CONTRAST. EXAM DATE: 02/03/2019 06:34 PM CLINICAL HISTORY: Right neck pain/headache. COMPARISON: HEAD W/O 06/15/2018 2:18 AM. TECHNIQUE: - CT Scan Head: Using a multidetector scanner, axial images were acquired from the foramen magnum to the skull vertex prior to and following contrast administration. - CT Angiogram: Using a multidetector scanner, high-resolution axial images were acquired from the skull base through vertex following rapid infusion of intravenous contrast. Reformats: Multiplanar MIP reformats were reconstructed. Nascet criteria used for stenosis measurement. IV Contrast: 80 cc Optiray 320. In accordance with CT protocol optimization, one or more of the following dose reduction techniques were utilized for this exam: automated exposure control, adjustment of mA and/or KV based on patient size, or use of iterative reconstructive technique. FINDINGS: CT scan of the head without contrast: There is mucoperiosteal thickening of the left maxillary sinus camacho and to a lesser degree the right maxillary sinus camacho. These are consistent with changes of chronic sinusitis. There is a mild degree of mucosal thickening in the bilateral posterior ethmoid complexes. There is mild mucosal thickening within the anterior right ethmoid complex. The bilateral mastoid air cells are normally aerated. There is no acute fracture of the calvaria. The imaged portions of the orbits are normal in appearance. There is no acute collection of blood or blood products, or mass. There is no midline shift. The booth-white differentiation remains distinct. Cerebral volume and ventricular size are normal. CT scan of the head with contrast: The imaged portions of the orbits are normal in appearance. There is normal enhancement within the deep venous sinuses. There is normal enhancement within the brain parenchyma. CTA of the head: The right vertebral artery intradural segment is smooth and nonstenotic. The left vertebral artery intradural segment is smooth and nonstenotic. The left posterior-inferior cerebellar artery is without flow-limiting stenosis. 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 The left anterior inferior cerebellar artery is smooth and nonstenotic. The basilar artery is without flow-limiting stenosis. The left superior cerebellar artery is without flow-limiting stenosis. The right superior cerebellar artery is without flow-limiting stenosis. There is a moderate sized right posterior communicating artery. The right P1 and P2 segments of the right posterior cerebral artery are without flow-limiting stenosis. The left P1 and P2 segments of the left posterior cerebral artery are without flow-limiting stenosis. The right intracranial internal carotid artery is smooth and nonstenotic. The left intracranial internal carotid artery is smooth and nonstenotic. The right M1 and proximal M2 segments of the right middle cerebral artery are smooth and nonstenotic. The left M1 and proximal M2 segments of the left middle cerebral artery are smooth and nonstenotic. The right A1 segment is smooth and nonstenotic. The left A1 segment is smooth and nonstenotic. There is a small anterior communicating artery. The right A2 segment of the right anterior cerebral artery is smooth and nonstenotic. The left A2 segment of the left anterior cerebral artery is smooth and nonstenotic. There is normal enhancement within the deep venous sinuses. IMPRESSION: 1. There is no acute intracranial abnormality. 2. There is mucoperiosteal thickening of the bilateral maxillary sinuses greater on the left than right. This would be consistent with changes of chronic maxillary sinusitis. 3. Normal postcontrast CT scan of the head. 4. There is no hemodynamically significant stenosis within the head. There is no evidence of cerebral aneurysm.
[2019-02-03 19:44] VITALS: BP 121/85
== END 2019-02-03 19:50 | disposition home or self-care (01) ==
LOC: ED 15:41
DX: M54.2 Cervicalgia (principal); J32.0 Chronic maxillary sinusitis; F17.200 Nicotine dependence, unspecified, uncomplicated
CPT/HCPCS: 36415; 70496; 70498; 80053; 83690; 85025; 96361; 96374; 96375; 96376; 99283; 99284; J1170; Q9967

== ENCOUNTER 2019-02-07 14:15 | Observation (INO) | payer MEDICAID ==
[2019-02-07 15:57] LABS: BASOPHILS % (AUTO) 0.4 %; EOSINOPHILS % (AUTO) 0.1 %; HGB - HEMOGLOBIN 14.7 g/dL (14.0-18.0); LYMPHOCYTES # (AUTO) 1.3 10^3/uL (1.5-3.5); LYMPHOCYTES % (AUTO) 18.9 %; MEAN CORPUSCULAR HGB CONC 34.2 g/dL (32.0-36.0); MEAN CORPUSCULAR VOLUME 90.7 fL (80.0-94.0); MEAN PLATELET VOLUME 9.5 fL (7.4-11.4); MONOCYTES # (AUTO) 0.7 10^3/uL (0.0-1.0); MONOCYTES % (AUTO) 10.3 %; NEUTROPHILS # (AUTO) 4.8 10^3/uL (1.5-6.6); PLT - PLATELET COUNT 280 10^3/uL (130-450); RED BLOOD COUNT 4.74 10^6/uL (4.70-6.10); RED CELL DISTRIBUTION WIDTH 13.8 % (12.0-15.0); WHITE BLOOD COUNT 6.9 x10^3/uL (4.8-10.8)
[2019-02-07 16:13] LABS: ALBUMIN 4.5 g/dL (3.2-5.5); ALBUMIN/GLOBULIN RATIO 1.4 (1.0-2.2); BILIRUBIN,TOTAL 0.4 mg/dL (0.2-1.0); CALCIUM 9.1 mg/dL (8.5-10.3); TOTAL PROTEIN 7.8 g/dL (6.7-8.2)
[2019-02-07] MEDS ORDERED: SODIUM CHLORIDE 0.9% 1,000 ML IV ONE ×2 (16:23→22:46)
[2019-02-07] MEDS ORDERED: ONDANSETRON 4 MG/2 ML VIAL IVP STA (16:23)
[2019-02-07] MEDS ORDERED: HYDROmorphone 1 MG/ML CARPUJECT IVP STA ×3 (16:23→20:47)
--- NOTE | 2019-02-07 16:25 | ED Physician Documentation ---
PD HPI ABD PAIN - Stated complaint Stated Complaint: ABD PX - Chief complaint Chief Complaint: Abd Pain - History obtained from History obtained from: Patient - History of Present Illness Timing - onset: Other (59-year-old gentleman with remote history of appendectomy presents with abdominal pain in the right upper quadrant that he describes as burning starting yesterday. Its associated with nausea and vomiting. He has not had a bowel movements in 24 hours and also notes dark urination that is less frequent than normal without dysuria.) Review of Systems Ten Systems: 10 systems reviewed and negative Constitutional: reports: Chills. denies: Fever Cardiac: denies: Chest pain / pressure, Palpitations Respiratory: denies: Dyspnea, Cough GI: reports: Abdominal Pain, Nausea, Vomiting PD PAST MEDICAL HISTORY - Past Medical History Neuro: Headaches Psych: Depression, Anxiety, Bipolar disorder - Past Surgical History Past Surgical History: No General: Appendectomy Ortho: Shoulder arthroplasty, Other - Present Medications Home Medications: Ambulatory Orders Medication Instructions Recorded Confirmed Bupropion HCl [Bupropion Xl] 300 mg PO DAILY 06/15/18 06/15/18 Gabapentin 800 mg PO TID 06/15/18 06/15/18 Ibuprofen 800 mg PO PRN PRN 06/15/18 06/15/18 QUEtiapine [SEROquel] 400 mg PO ACHS 06/15/18 06/15/18 buPROPion [Wellbutrin Xl] 150 mg PO DAILY 06/15/18 06/15/18 busPIRone [Buspar] 15 mg PO BID 06/15/18 06/15/18 rOPINIRole [Requip] 1 mg PO ACHS 06/15/18 06/15/18 Amoxicillin/Potassium Clav 2 each PO BID 7 Days #28 tab.er.12h 12/06/18 [Augmentin Xr 1,000-62.5 Tab] Buspirone HCl 30 mg PO BID #14 tablet 12/06/18 Hydrocodone/Acetaminophen 1 - 2 each PO Q6H PRN #6 tablet 12/06/18 [Hydrocodon-Acetaminophen 5-325] Ondansetron Odt [Zofran] 4 mg TL Q6H PRN #10 tablet 12/06/18 Ondansetron Odt [Zofran] 4 mg TL Q6H PRN #10 tablet 01/09/19 Amoxicillin 500 mg PO TID #21 capsule 02/03/19 Cetirizine [ZyrTEC] 10 mg PO DAILY #15 tablet 02/03/19 Naproxen 500 mg PO BID #20 tablet 02/03/19 Oxycodone HCl/Acetaminophen 1 each PO Q6H PRN #20 tablet 02/03/19 [Percocet 5-325 mg Tablet] Tizanidine HCl 4 mg PO TID PRN #25 capsule 02/03/19 dexAMETHasone [Decadron] 4 mg PO DAILY #5 tablet 02/03/19 - Allergies Allergies/Adverse Reactions: Allergies Allergy/AdvReac Type Severity Reaction Status Date / Time No Known Drug Allergies Allergy Verified 02/03/19 16:10 - Social History Does the pt smoke?: Yes Smoking Status: Current every day smoker Does the pt drink ETOH?: Yes Does the pt have substance abuse?: No - Immunizations Immunizations are current?: Yes PD ED PE NORMAL - Vitals Vital signs reviewed: Yes - General General: Alert and oriented X 3, No acute distress - HEENT HEENT: PERRL, EOMI - Neck Neck: Supple, no meningeal sign, No bony TTP - Cardiac Cardiac: RRR, No murmur - Respiratory Respiratory: No respiratory distress, Clear bilaterally - Abdomen Abdomen: Normal bowel sounds, Other (He is exquisitely tender in the right upper quadrant with some mild diffuse tenderness otherwise. He does have a positive Lai sign.) - Back Back: No CVA TTP, No spinal TTP - Derm Derm: Normal color, Warm and dry - Extremities Extremities: No edema, No calf tenderness / cord - Neuro Neuro: Alert and oriented X 3, Normal speech Results - Vitals Vitals: Vital Signs - 24 hr 02/07/19 02/07/19 02/07/19 14:31 16:44 18:00 Temperature 36.8 C Heart Rate 91 85 81 Respiratory 18 16 16 Rate Blood Pressure 111/65 128/82 H 123/86 H O2 Saturation 98 100 97 02/07/19 20:00 Temperature Heart Rate 83 Respiratory 18 Rate Blood Pressure 125/84 H O2 Saturation 98 Oxygen O2 Source Room air - Labs Labs: Laboratory Tests 02/07/19 02/07/19 02/07/19 15:45 15:45 22:09 WBC 6.9 RBC 4.74 Hgb 14.7 Hct 43.0 MCV 90.7 MCH 31.0 MCHC 34.2 RDW 13.8 Plt Count 280 MPV 9.5 Neut # (Auto) 4.8 Lymph # (Auto) 1.3 L [place] # (Auto) 0.7 Eos # (Auto) 0.0 Baso # (Auto) 0.0 Absolute Nucleated RBC 0.00 Nucleated RBC % 0.0 Sodium 133 L Potassium 3.5 Chloride 100 L Carbon Dioxide 25 Anion Gap 8.0 BUN 12 Creatinine 1.0 Estimated GFR (MDRD) 77 L Glucose 91 Calcium 9.1 Total Bilirubin 0.4 AST 20 ALT 18 Alkaline Phosphatase 62 Total Protein 7.8 Albumin 4.5 Globulin 3.3 Albumin/Globulin Ratio 1.4 Lipase 31 Urine Color YELLOW Urine Clarity CLEAR Urine pH 6.5 Ur Specific [place] <=1.005 Urine Protein NEGATIVE Urine Glucose (UA) NEGATIVE Urine Ketones 15 H Urine Occult Blood TRACE-LYSE Urine Nitrite NEGATIVE Urine Bilirubin NEGATIVE Urine Urobilinogen 0.2 (NORMAL) Ur Leukocyte Esterase NEGATIVE Ur Microscopic Review NOT INDICATED Urine Culture Comments NOT INDICATED Urine Opiates Screen Ur Oxycodone Screen Urine Methadone Screen Ur Propoxyphene Screen Ur Barbiturates Screen Ur Tricyclics Screen Ur Phencyclidine Scrn Ur Amphetamine Screen U Methamphetamines Scrn U Benzodiazepines Scrn Urine Cocaine Screen U Cannabinoids Screen 02/07/19 22:18 WBC RBC Hgb Hct MCV MCH MCHC RDW Plt Count MPV Neut # (Auto) Lymph # (Auto) [place] # (Auto) Eos # (Auto) Baso # (Auto) Absolute Nucleated RBC Nucleated RBC % Sodium Potassium Chloride Carbon Dioxide Anion Gap BUN Creatinine Estimated GFR (MDRD) Glucose Calcium Total Bilirubin AST ALT Alkaline Phosphatase Total Protein Albumin Globulin Albumin/Globulin Ratio Lipase Urine Color Urine Clarity Urine pH Ur Specific [place] Urine Protein Urine Glucose (UA) Urine Ketones Urine Occult Blood Urine Nitrite Urine Bilirubin Urine Urobilinogen Ur Leukocyte Esterase Ur Microscopic Review Urine Culture Comments Urine Opiates Screen POSITIVE H Ur Oxycodone Screen NEGATIVE Urine Methadone Screen NEGATIVE Ur Propoxyphene Screen NEGATIVE Ur Barbiturates Screen NEGATIVE Ur Tricyclics Screen POSITIVE H Ur Phencyclidine Scrn NEGATIVE Ur Amphetamine Screen NEGATIVE U Methamphetamines Scrn NEGATIVE U Benzodiazepines Scrn NEGATIVE Urine Cocaine Screen NEGATIVE U Cannabinoids Screen POSITIVE H PD MEDICAL DECISION MAKING - ED course ED course: This is a 59-year-old gentleman with acute onset right upper quadrant pain. Initial evaluation was most consistent with a biliary etiology but labs and ultrasound were negative. Subsequent to that he had a large volume diarrheal bowel movement, so now suspecting more of a viral etiology. CT imaging was also done and negative. Further review of his chart shows fairly frequent episodes of visiting for abdominal pain, querying about marijuana he admits to frequent use but not in a month. However when I mentioned that it may be relevance, he said well I guess I will have to quit using marijuana. He does admit to relief from hot shower. It was pretty difficult to get a hold of his symptoms, he had several rounds of medications for both pain and nausea without claimed relief and as such I spoke with Dr. Garcia for observation at 10:45 PM. Departure - Departure Disposition: ED Place in Observation Clinical Impression: Gastroenteritis Abdominal pain Qualifiers: Abdominal location: right upper quadrant Qualified Code(s): R10.11 - Right upper quadrant pain Condition: Stable Record reviewed to determine appropriate education?: Yes
--- NOTE | 2019-02-07 18:54 | Ultrasound Report ---
Reason: RUQ pain Procedure Date: 02/07/2019 Accession Number: [id number] / [id number] Procedure: US - Abdomen Limited CPT Code: Final Report FULL RESULT: EXAM: ABDOMEN ULTRASOUND LIMITED, RUQ EXAM DATE: 02/07/2019 06:26 PM. CLINICAL HISTORY: Right upper quadrant and epigastric pain. Nausea/vomiting since yesterday. Worsening today. COMPARISON: ABDOMEN/PELVIS W/ 01/09/2019 2:48 PM. TECHNIQUE: Real-time scanning was performed with static images obtained. FINDINGS: LIVER: Normal in size but increased in echogenicity. No suspicious hepatic masses identified. The liver surface is smooth. PORTAL VEIN: Patent with hepatopedal flow. BILIARY: The common bile duct is normal in caliber. No intrahepatic biliary dilatation. GALLBLADDER: No gallstones, gallbladder wall thickening or pericholecystic fluid. There is a 3 mm sludge ball versus polyp in the gallbladder neck. RIGHT KIDNEY: Normal in size without hydronephrosis, large shadowing stones or perinephric fluid collections. PANCREAS: The visualized portions of the pancreas are unremarkable. IVC: The visualized portions of the inferior vena cava are unremarkable. AORTA: The visualized aorta is normal in caliber. ASCITES: No significant free fluid. Measurements: Liver: 13.7 cm Gallbladder wall thickness: 2 mm Common bile duct: 4 mm Right kidney: 10.8 cm IMPRESSION: 1. No gallstones or cholecystitis. 2. Fatty liver. RADIA
[2019-02-07] MEDS ORDERED: KETOROLAC 30 MG/ML VIAL IVP STA (19:22)
[2019-02-07] MEDS ORDERED: IOVERSOL 320 100 ML VIAL IVP ONE ×2 (19:26→20:08)
--- NOTE | 2019-02-07 20:39 | CT Report ---
Reason: IV only, RUQ pain/diarrhea Procedure Date: 02/07/2019 Accession Number: [id number] / [id number] Procedure: CT - Abdomen/Pelvis W CPT Code: Final Report FULL RESULT: EXAM: CT ABDOMEN AND PELVIS EXAM DATE: 02/07/2019 08:06 PM. CLINICAL HISTORY: Right upper quadrant pain/diarrhea. COMPARISONS: ABDOMEN/PELVIS W/ 01/09/2019 2:48 PM. TECHNIQUE: Routine helical CT imaging was performed through the abdomen and pelvis. IV contrast: Opti 320 100 mL. Enteric contrast: No. Reconstructions: Coronal and sagittal. In accordance with CT protocol optimization, one or more of the following dose reduction techniques were utilized for this exam: automated exposure control, adjustment of mA and/or KV based on patient size, or use of iterative reconstructive technique. FINDINGS: Lung Bases: Unremarkable. Liver: Normal. No masses. Gallbladder/Bile Ducts: Unremarkable. Spleen: Normal. Pancreas: Normal. Adrenal Glands: Normal. Kidneys: Normal. No masses or hydronephrosis. Peritoneal Cavity/Bowel: Normal. No free fluid, free air or adenopathy. No masses or acute inflammatory process. The appendix is not seen. Pelvic Organs: Normal. The bladder and visualized pelvic organs are within normal limits. Vasculature: No aneurysms or other significant abnormality. Bones: No significant abnormality. IMPRESSION: 1. No acute findings are seen. See above. RADIA
[2019-02-07] MEDS ORDERED: METOCLOPRAMIDE 10 MG/2 ML VIAL IVP STA (20:47)
[2019-02-07] MEDS: ONDANSETRON ODT 4 MG Prepack 2 TL STA ×2 (21:20→22:52)
[2019-02-07] MEDS: HYDROcod/ACET 5/325 Prepack 4 PO STA ×2 (21:20→22:52)
[2019-02-07] MEDS ORDERED: HALOPERIDOL 5 MG/ML VIAL IVP ONE (21:39)
[2019-02-07 22:23] LABS: MUDS CUTOFF CONCENTRATIONS CUTOFF CONC BELOW:
[2019-02-07 22:24] LABS: BILIRUBIN,URINE NEGATIVE (NEGATIVE); GLUCOSE, URINE (UA) NEGATIVE (NEGATIVE); KETONES,URINE (UA) 15 mg/dL (NEGATIVE); LEUKOCYTE ESTERASE, URINE NEGATIVE (NEGATIVE); NITRITE,URINE NEGATIVE (NEGATIVE); OCCULT BLOOD,URINE TRACE-LYSE (NEGATIVE); PH,URINE 6.5 PH (5.0-7.5); PROTEIN,URINE NEGATIVE (NEGATIVE); UROBILINOGEN,URINE 0.2 (NORMAL) E.U./dL (NORMAL)
[2019-02-07 22:26] LABS: CLARITY,URINE CLEAR (CLEAR)
[2019-02-07 22:49] LABS: AMPHETAMINE SCREEN,URINE NEGATIVE (NEGATIVE); BENZODIAZEPINES SCREEN, URINE NEGATIVE (NEGATIVE); COCAINE SCREEN URINE NEGATIVE (NEGATIVE); METHADONE SCREEN, URINE NEGATIVE (NEGATIVE); METHAMPHETAMINES SCREEN, URINE NEGATIVE (NEGATIVE); OPIATE SCREEN, URINE POSITIVE (NEGATIVE); TRICYCLIC ANTIDEPRESSANT,URINE POSITIVE (NEGATIVE)
[2019-02-07] MEDS ORDERED: ONDANSETRON 4 MG/2 ML VIAL IVP PRN (22:49)
[2019-02-07] MEDS ORDERED: SODIUM CHLORIDE FLUSH 0.9% 10 ML SYRINGE IVP PRN (22:49)
[2019-02-07 22:50] LABS: OXYCODONE SCREEN, URINE NEGATIVE (NEGATIVE); PROPOXYPHENE SCREEN, URINE NEGATIVE (NEGATIVE)
[2019-02-07] MEDS ORDERED: PROCHLORPERAZINE 10 MG/2 ML VIAL IVP PRN (22:52)
[2019-02-07] MEDS ORDERED: LACTATED RINGERS 1,000 ML IV SCH (23:00)
--- NOTE | 2019-02-07 23:54 | HISTORY & PHYSICAL EXAMINATION ---
Chief Complaint - Chief Complaint Chief Complaint: Nausea and vomiting History of Present Illness - Admitted From Admitted From:: Home - History Obtained From Records Reviewed: Yes History obtained from: Patient, ER Physician, EMR - History of Present Illness HPI Comment/Other: This is a 59-year-old male with a past medical history significant for d epression, anxiety, marijuana use, tobacco use who presents complaining of nausea vomiting that began Friday morning. He reports that since that time is been unable to keep anything down and continues to have nonbloody emesis. He has associated epigastric pain that has become diffuse abdominal pain. He also reported associated diarrhea yesterday. He has not had a lot of bowel movements but he states they are loose with quite a bit of volume. He reports no fevers but does endorse chills. He reports chest pain and dyspnea while vomiting. He also is complaining of a sore throat. Reports no similar symptoms in the past. He reports no sick contacts. He does smoke marijuana and reports most recent use was about 1 week ago. He uses a few times a week and has been smoking for over 20 years. In the emergency department, his vitals were unremarkable. His labs were unrevealing. His urine drug screen was positive for opiates, tricyclics, marijuana. Initially underwent a right upper quadrant ultrasound which was unremarkable. Due to his ongoing pain, a CT of the abdomen and pelvis was performed which was unremarkable. He was given multiple doses of IV Dilaudid, Zofran, Reglan, Haldol to help control his nausea without improvement. Given he has intractable nausea and vomiting, medicine was consulted for admission. History - Past Medical History Cardiovascular: reports: None Respiratory: reports: None Neuro: reports: Headaches Endocrine/Autoimmune: reports: None GI: reports: None : reports: None HEENT: reports: None Psych: reports: Depression, Anxiety, Bipolar disorder Musculoskeletal: reports: Osteoarthritis Derm: reports: None MRSA Hx?: No - Past Surgical History General: reports: Appendectomy Ortho: reports: Shoulder arthroplasty - Family & Social History Family History Comment/Other: He reports that his grandfather had cardiac problems including coronary artery disease. He reports no other family history. Living arrangement: At home Living Situation: With spouse/s.o. Social History Notes: He moved to [facility] 1 year ago from [facility]. He is currently on disability because of shoulder surgery and knee surgery. 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 He lives with his girlfriend. He smokes about a half a pack to pack per day for at least the past 30 years. He reports no alcohol use. He does smoke marijuana a few times a week for the past 20 years. Denies any other illicit drug use. - Substance History Use: Uses substance without health or social issues: Tobacco, Cannabis - POLST Patient has POLST: No Meds/Allgy - Home Medications Home Medications: Ambulatory Orders Medication Instructions Recorded Confirmed Bupropion HCl [Bupropion Xl] 300 mg PO DAILY 06/15/18 06/15/18 Gabapentin 800 mg PO TID 06/15/18 06/15/18 Ibuprofen 800 mg PO PRN PRN 06/15/18 06/15/18 QUEtiapine [SEROquel] 400 mg PO ACHS 06/15/18 06/15/18 buPROPion [Wellbutrin Xl] 150 mg PO DAILY 06/15/18 06/15/18 busPIRone [Buspar] 15 mg PO BID 06/15/18 06/15/18 rOPINIRole [Requip] 1 mg PO ACHS 06/15/18 06/15/18 Amoxicillin/Potassium Clav 2 each PO BID 7 Days #28 tab.er.12h 12/06/18 [Augmentin Xr 1,000-62.5 Tab] Buspirone HCl 30 mg PO BID #14 tablet 12/06/18 Hydrocodone/Acetaminophen 1 - 2 each PO Q6H PRN #6 tablet 12/06/18 [Hydrocodon-Acetaminophen 5-325] Ondansetron Odt [Zofran] 4 mg TL Q6H PRN #10 tablet 12/06/18 Ondansetron Odt [Zofran] 4 mg TL Q6H PRN #10 tablet 01/09/19 Amoxicillin 500 mg PO TID #21 capsule 02/03/19 Cetirizine [ZyrTEC] 10 mg PO DAILY #15 tablet 02/03/19 Naproxen 500 mg PO BID #20 tablet 02/03/19 Oxycodone HCl/Acetaminophen 1 each PO Q6H PRN #20 tablet 02/03/19 [Percocet 5-325 mg Tablet] Tizanidine HCl 4 mg PO TID PRN #25 capsule 02/03/19 dexAMETHasone [Decadron] 4 mg PO DAILY #5 tablet 02/03/19 - Allergies Allergies/Adverse Reactions: Allergies Allergy/AdvReac Type Severity Reaction Status Date / Time No Known Drug Allergies Allergy Verified 02/03/19 16:10 Review of Systems - Constitutional Constitutional: reports: Fatigue, Chills, Weakness, Poor appetite. denies: Fever - Cardiovascular Cariovascular: reports: Chest pain (When vomiting). denies: Edema, Exertional dyspnea, Decr. exercise tolerance - Respiratory Respiratory: reports: SOB at rest (When vomiting). denies: Cough, SOB with exer tion - Gastrointestinal Gastrointestinal: reports: Abdominal pain, Diarrhea, Change in bowel habits, Nausea, Vomiting, Reflux/heartburn, Poor appetite. denies: Constipation, Black stools, Bloody stools, Yimi blood emesis - Genitourinary Genitourinary: denies: Dysuria, Frequency, Urgency - Musculoskeletal Musculoskeletal: denies: Muscle weakness - Neurological Neurological: reports: General weakness, Numbness. denies: Focal weakness - Psychiatric Psychiatric: reports: Depression - All Other Systems All Other Systems: reports: Reviewed and negative Prior Level of Functionality: He is independent with ADL's. Exam - Vital Signs Reviewed Vital Signs: Yes Vital Signs: Vital Signs x48h Temp Pulse Resp BP Pulse Ox 02/07/19 22:00 36.7 C 85 19 126/84 H 98 02/07/19 20:00 83 18 125/84 H 98 02/07/19 18:00 81 16 123/86 H 97 02/07/19 16:44 85 16 128/82 H 100 - Physical Exam General Appearance: positive: Alert, Mild distress Eyes Bilateral: positive: Normal inspection ENT: positive: ENT inspection nml. negative: Dry mucous membranes Neck: positive: Nml inspection Respiratory: positive: No respiratory distress. negative: Wheezes, Rales, Rhonchi Cardiovascular: positive: Regular rate & rhythm, No murmur. negative: Tachycardia, Bradycardia, Systolic murmur, Diastolic murmur Abdomen: positive: Nml bowel sounds, No distention, Tenderness (Diffuse tenderness.). negative: Guarding, Rebound Skin: positive: No rash, Warm, Dry Extremities: positive: No pedal edema Neurologic/Psychiatric: positive: Oriented x3, Other (No focal motor deficits.). negative: Disoriented to person, Disoriented to place, Disoriented to time Conclusion/Plan - Problem List (1) Intractable nausea and vomiting Conclusion/Plan: Suspect is likely secondary to either gastroenteritis or hyperemesis from marijuana use. Imaging was fortunately unremarkable as well as his labs. We will start him on clear liquid diet. IV hydration with lactated Ringer's. Will use Zofran and Compazine as antiemetics. We will advance his diet as tolerated and hope for discharge tomorrow morning as long as he is able to tolerate a diet. (2) Abdominal pain Conclusion/Plan: Abdominal pain was initially right upper quadrant but is now more generalized. Imaging was unremarkable. Suspect this may be gastritis secondary to his m ultiple episodes of vomiting or may also be secondary to suspected gastroenteritis as a cause of his nausea, vomiting, and diarrhea. We will start him on Protonix. We will advance his diet as tolerated. Will obtain an EKG to rule out cardiac causes. Will limit using IV pain medications in preparation for likely discharge tomorrow morning. Qualifiers: Abdominal location: generalized Qualified Code(s): R10.84 - Generalized abdominal pain (3) Depression with anxiety Conclusion/Plan: Stable. We will continue his home Wellbutrin, BuSpar, Seroquel, gabapentin. (4) Marijuana use Conclusion/Plan: This may be contributing to his nausea and vomiting. Discussed with patient regarding hyperemesis syndrome from cannabis use. Informed him that the treatment is discontinuation of the marijuana use. (5) Tobacco use Conclusion/Plan: We will provide him with a nicotine patch. - Lab Results Lab results reviewed: Yes Fish Bones: 02/07/19 15:45 02/07/19 15:45 - Diagnostic Imaging Results Diagnostic Imaging Results: positive: Final report reviewed Core Measures - Anticipated LOS I expect patient to be DC'd or transferred within 96 hours.: Yes - Issues Hospital Issues and Management Plan: Intractable nausea vomiting likely due to gastroenteritis or marijuana use requiring IV antiemetics. - DVT/VTE - Prophylaxis VTE/DVT Device ordered at admit?: Yes VTE/DVT Prophylaxis med ordered at admit?: Yes
[2019-02-07] MEDS ORDERED: QUEtiapine 100 MG TABLET PO SCH (23:55)
[2019-02-08] MEDS ORDERED: ACETAMINOPHEN 500 MG TABLET PO PRN (00:13)
[2019-02-08] MEDS ORDERED: KETOROLAC 30 MG/ML VIAL IVP PRN (00:13)
[2019-02-08] MEDS: SODIUM CHLORIDE FLUSH 0.9% 10 ML SYRINGE IVP SCH ×2 (00:38→09:34)
[2019-02-08 05:46] LABS: BASOPHILS % (AUTO) 0.4 %; EOSINOPHILS # (AUTO) 0.1 10^3/uL (0.0-0.7); EOSINOPHILS % (AUTO) 1.3 %; HGB - HEMOGLOBIN 12.2 g/dL (14.0-18.0); LYMPHOCYTES # (AUTO) 2.1 10^3/uL (1.5-3.5); MEAN CORPUSCULAR HEMOGLOBIN 29.8 pg (27.0-31.0); MEAN CORPUSCULAR HGB CONC 32.4 g/dL (32.0-36.0); MEAN CORPUSCULAR VOLUME 91.7 fL (80.0-94.0); MEAN PLATELET VOLUME 9.8 fL (7.4-11.4); MONOCYTES # (AUTO) 0.6 10^3/uL (0.0-1.0); MONOCYTES % (AUTO) 13.1 %; NEUTROPHILS # (AUTO) 1.9 10^3/uL (1.5-6.6); NEUTROPHILS % (AUTO) 39.8 %; PLT - PLATELET COUNT 204 10^3/uL (130-450); RED CELL DISTRIBUTION WIDTH 14.1 % (12.0-15.0); WHITE BLOOD COUNT 4.7 x10^3/uL (4.8-10.8)
[2019-02-08 05:53] LABS: CALCIUM 8.2 mg/dL (8.5-10.3); CREATININE 0.9 mg/dL (0.6-1.2); PHOSPHORUS 3.2 mg/dL (2.5-4.6)
--- NOTE | 2019-02-08 06:54 | Discharge Plan ---
Discharge Plan Problem Reviewed?: Yes Diet: Regular Activity Restrictions: Activity as Tolerated Shower Restrictions: No Driving Restrictions: No No Smoking: If you smoke, Please STOP! Call for help. Disposition: 01 Home, Self Care Condition: Good Prescriptions: Ondansetron Odt [Zofran Odt] 4 mg TL Q6H PRN #10 tablet PRN Reason: Nausea / Vomiting Instruction Topics: Ondansetron tablets Health Concerns: You were in the hospital because of nausea and vomiting as well as abdominal pain. You underwent a CT scan of your abdomen which did not show anything acute. Your blood work was also normal. Your nausea and vomiting may have been secondary to stomach flu or your marijuana use. It is recommended you stop smoking marijuana as this may cause the symptoms to occur again. You are now able to tolerate a diet and are stable for discharge. Plan of Treatment: There were no changes made to your medications. You were provided with a Zofran prescription which you may take as needed for nausea. Care Goals: It is recommended you follow-up with your primary care physician within 1 week. Assessment: Patient expressed understanding of the treatment plan and goals.
[2019-02-08] MEDS ORDERED: PANTOPRAZOLE 40 MG TABLET PO SCH (07:00)
--- NOTE | 2019-02-08 07:33 | DISCHARGE SUMMARY ---
"Discharge Summary Admit Date: 02/07/19 Discharge Date: 02/08/19 Discharging Provider: Isrrael He Code Status: Attempt Resuscitation Condition at Discharge: Good Discharge Disposition: 01 Home, Self Care - DIAGNOSES Admission Diagnoses: Intractable nausea and vomiting Abdominal pain Depression with anxiety Marijuana use Tobacco use Discharge Diagnoses with Status of Each Condition: Intractable nausea and vomiting - resolved. Gastroenteritis - improved. Depression with anxiety - stable. Marijuana use - stable. Tobacco use - stable. - HPI History of Present Illness: This is a 59-year-old male with a past medical history significant for depression, anxiety, marijuana use, tobacco use who presents complaining of nausea vomiting that began Friday morning. He reports that since that time is been unable to keep anything down and continues to have nonbloody emesis. He has associated epigastric pain that has become diffuse abdominal pain. He also reported associated diarrhea yesterday. He has not had a lot of bowel movements but he states they are loose with quite a bit of volume. He reports no fevers but does endorse chills. He reports chest pain and dyspnea while vomiting. He also is complaining of a sore throat. Reports no similar symptoms in the past. He reports no sick contacts. He does smoke marijuana and reports most recent use was about 1 week ago. He uses a few times a week and has been smoking for over 20 years. In the emergency department, his vitals were unremarkable. His labs were unrevealing. His urine drug screen was positive for opiates, tricyclics, marijuana. Initially underwent a right upper quadrant ultrasound which was unremarkable. Due to his ongoing pain, a CT of the abdomen and pelvis was performed which was unremarkable. He was given multiple doses of IV Dilaudid, Zofran, Reglan, Haldol to help control his nausea without improvement. Given he has intractable nausea and vomiting, medicine was consulted for admission. - CONSULTS | PROCEDURES Procedures: CT of the abdomen and pelvis. Right upper quadrant ultrasound. - HOSPITAL COURSE Hospital Course: He was admitted for intractable nausea and vomiting after failing multiple anti- emetics in the ER. Imaging of his abdomen was unremarkable. Upon arrival to the floor, he was started on a clear liquid diet and was able to tolerate that well. Diet was advanced without any emesis. He did not require any antiemetics. Abdominal pain improved and he did not require any IV pain medications. He was discharged the following morning. Suspect his symptoms may have been secondary to marijuana use or gastroenteritis. I did employee counselor him on marijuana cessation as this can occur again. He was provided with a prescription for Zofran as needed. - ALLERGIES Allergies/Adverse Reactions: Allergies Allergy/AdvReac Type Severity Reaction Status Date / Time No Known Drug Allergies Allergy Verified 02/03/19 16:10 - MEDICATIONS Home Medications: Ambulatory Orders Medication Instructions Recorded Confirmed Bupropion HCl [Bupropion Xl] 300 mg PO DAILY 06/15/18 06/15/18 Gabapentin 800 mg PO TID 06/15/18 06/15/18 QUEtiapine [SEROquel] 400 mg PO ACHS 06/15/18 06/15/18 busPIRone [Buspar] 15 mg PO BID 06/15/18 06/15/18 Buspirone HCl 30 mg PO BID #14 tablet 12/06/18 Ondansetron Odt [Zofran Odt] 4 mg TL Q6H PRN #10 tablet 02/08/19 QUEtiapine [SEROquel] 400 mg PO QPM tablet 02/08/19 - PHYSICAL EXAM AT DISCHARGE General Appearance: positive: No acute distress, Alert Eyes Bilateral: positive: Normal inspection ENT: positive: ENT inspection nml Neck: positive: Nml inspection Respiratory: positive: No respiratory distress. negative: Wheezes, Rales, Rhonchi Cardiovascular: positive: Regular rate & rhythm, No murmur. negative: Systolic murmur, Diastolic murmur Abdomen: positive: Nml bowel sounds, Tenderness (He still had mild abdominal tenderness but this had improved since admission.). negative: Guarding, Rebound Skin: positive: No rash, Warm, Dry Extremities: positive: Full ROM, No pedal edema Neurologic/Psychiatric: positive: Oriented x3, Motor nml. negative: Disoriented to person, Disoriented to place, Disoriented to time, Weakness - LABS Result Diagrams: 02/08/19 05:06 02/08/19 05:06 - DIAGNOSTIC IMAGING Diagnostic Imaging Results: Final report reviewed - TIME SPENT Time Spent in Discharge (Minutes): 30"
[2019-02-08 08:03] VITALS: BP 110/69
[2019-02-08] MEDS ORDERED: NICOTINE 21 MG PATCH TOP SCH (09:00)
[2019-02-08] MEDS ORDERED: HEPARIN 5,000 UNIT/ML VIAL SUBQ SCH (09:00)
== END 2019-02-08 10:55 | disposition home or self-care (01) ==
LOC: ED 14:15 → MS2 22:49
PROVIDERS: ADMIT Internal Medicine; ATTEND Internal Medicine
DX: K52.9 Noninfective gastroenteritis and colitis, unspecified (principal); F31.9 Bipolar disorder, unspecified; F41.8 Other specified anxiety disorders; F17.210 Nicotine dependence, cigarettes, uncomplicated; Z72.89 Other problems related to lifestyle; M19.90 Unspecified osteoarthritis, unspecified site; Z98.890 Other specified postprocedural states; Z79.1 Long term (current) use of non-steroidal anti-inflammatories (NSAID); Z79.891 Long term (current) use of opiate analgesic
CPT/HCPCS: 36415; 74177; 76705; 80048; 80053; 80306; 81003; 83690; 83735; 84100; 85025; 93005; 96361; 96372; 96374; 96375; 96376; 99285; 99406; A9270; G0378; J1170; J2765; J7120; Q9967; 81001; 87086

== ENCOUNTER 2019-02-22 12:42 | Emergency (ER) | payer MEDICAID ==
[2019-02-22 13:53] LABS: BASOPHILS # (AUTO) 0.1 10^3/uL (0.0-0.1); BASOPHILS % (AUTO) 0.5 %; EOSINOPHILS # (AUTO) 0.2 10^3/uL (0.0-0.7); EOSINOPHILS % (AUTO) 1.2 %; HGB - HEMOGLOBIN 15.9 g/dL (14.0-18.0); LYMPHOCYTES # (AUTO) 1.3 10^3/uL (1.5-3.5); LYMPHOCYTES % (AUTO) 8.9 %; MEAN CORPUSCULAR HEMOGLOBIN 29.8 pg (27.0-31.0); MEAN CORPUSCULAR HGB CONC 32.6 g/dL (32.0-36.0); MEAN CORPUSCULAR VOLUME 91.6 fL (80.0-94.0); MEAN PLATELET VOLUME 9.3 fL (7.4-11.4); MONOCYTES # (AUTO) 1.3 10^3/uL (0.0-1.0); MONOCYTES % (AUTO) 8.8 %; NEUTROPHILS # (AUTO) 11.9 10^3/uL (1.5-6.6); PLT - PLATELET COUNT 379 10^3/uL (130-450); RED BLOOD COUNT 5.33 10^6/uL (4.70-6.10); WHITE BLOOD COUNT 14.9 x10^3/uL (4.8-10.8)
[2019-02-22 14:06] LABS: ALBUMIN 4.8 g/dL (3.2-5.5); ALBUMIN/GLOBULIN RATIO 1.5 (1.0-2.2); CALCIUM 10.4 mg/dL (8.5-10.3); CREATININE 1.1 mg/dL (0.6-1.2); TOTAL PROTEIN 8.1 g/dL (6.7-8.2)
[2019-02-22] MEDS ORDERED: KETOROLAC 60 MG/2 ML VIAL IM STA (14:25)
[2019-02-22] MEDS ORDERED: HALOPERIDOL 5 MG/ML VIAL IM STA (14:26)
[2019-02-22 14:33] LABS: BILIRUBIN,URINE NEGATIVE (NEGATIVE); GLUCOSE, URINE (UA) NEGATIVE (NEGATIVE); KETONES,URINE (UA) NEGATIVE (NEGATIVE); LEUKOCYTE ESTERASE, URINE NEGATIVE (NEGATIVE); MUDS CUTOFF CONCENTRATIONS CUTOFF CONC BELOW:; NITRITE,URINE NEGATIVE (NEGATIVE); OCCULT BLOOD,URINE NEGATIVE (NEGATIVE); PH,URINE 5.5 PH (5.0-7.5); PROTEIN,URINE NEGATIVE (NEGATIVE); UROBILINOGEN,URINE 0.2 (NORMAL) E.U./dL (NORMAL)
[2019-02-22 14:35] LABS: CLARITY,URINE CLEAR (CLEAR)
[2019-02-22 14:45] LABS: AMPHETAMINE SCREEN,URINE NEGATIVE (NEGATIVE); BENZODIAZEPINES SCREEN, URINE NEGATIVE (NEGATIVE); COCAINE SCREEN URINE NEGATIVE (NEGATIVE); METHADONE SCREEN, URINE NEGATIVE (NEGATIVE); METHAMPHETAMINES SCREEN, URINE NEGATIVE (NEGATIVE); OPIATE SCREEN, URINE NEGATIVE (NEGATIVE); OXYCODONE SCREEN, URINE NEGATIVE (NEGATIVE); PROPOXYPHENE SCREEN, URINE NEGATIVE (NEGATIVE); TRICYCLIC ANTIDEPRESSANT,URINE POSITIVE (NEGATIVE)
[2019-02-22] MEDS ORDERED: CAPSAICIN 0.025% CREAM 60 GM TUBE TOP SCH (15:00)
[2019-02-22] MEDS ORDERED: LIDOCAINE VISCOUS 2% 15 ML UDC MM STA (15:08)
[2019-02-22] MEDS ORDERED: MAG HYDROX/AL HYDROX/SIMETH 30 ML UDC PO STA (15:08)
--- NOTE | 2019-02-22 16:34 | ED Physician Documentation ---
PD HPI ABD PAIN - Stated complaint Stated Complaint: ABD PAIN/VOMITTING - Chief complaint Chief Complaint: Abd Pain - History obtained from History obtained from: Patient, Family - History of Present Illness Timing - onset: Other (several days) Timing - duration: Days (several days) Timing - details: Gradual onset Severity Comments: moderate lower abdominal pain, cramping Quality: Cramping, Pain Location: Other (lower abdomen) Radiation: Other (none) Improved by: Other (nothing) Worsened by: Eating Associated symptoms: Nausea, Vomiting. No: Fever, Hematemesis, Diarrhea, Constipation, Melena, Hematochezia, Dysuria, Hematuria, Chest pain, Near syncope / syncope Similar symptoms before: Work up / diagnostics (had similar symptoms in November at that time had labs, imaging performed (CT scan) which were negative) Recently seen: Emergency Dept (2-3 months ago for the same symptoms) - Treatment prior to arrival Treatment prior to arrival: none - Additional information Additional information: none Review of Systems Ten Systems: 10 systems reviewed and negative Constitutional: denies: Fever GI: reports: Abdominal Pain, Nausea, Vomiting. denies: Abdominal Swelling, Constipation, Diarrhea, Hematemesis, Bloody / black stool : reports: Unable to Void. denies: Dysuria, Frequency, Hesitancy, Incontinent Skin: reports: Reviewed and negative Musculoskeletal: reports: Reviewed and negative Neurologic: reports: Reviewed and negative Psychiatric: reports: Anxiety Endocrine: reports: Reviewed and negative Immunocompromised: reports: Reviewed and negative PD PAST MEDICAL HISTORY - Past Medical History Past Medical History: Yes Cardiovascular: None Respiratory: None Neuro: Headaches Endocrine/Autoimmune: None GI: None : None HEENT: None Psych: Depression, Anxiety, Bipolar disorder Musculoskeletal: Osteoarthritis Derm: None - Past Surgical History Past Surgical History: No General: Appendectomy Ortho: Shoulder arthroplasty HEENT: Tonsil/Adenoidectomy - Present Medications Home Medications: Ambulatory Orders Medication Instructions Recorded Confirmed Bupropion HCl [Bupropion Xl] 300 mg PO DAILY 06/15/18 06/15/18 Gabapentin 800 mg PO TID 06/15/18 06/15/18 QUEtiapine [SEROquel] 400 mg PO ACHS 06/15/18 06/15/18 busPIRone [Buspar] 15 mg PO BID 06/15/18 06/15/18 Buspirone HCl 30 mg PO BID #14 tablet 12/06/18 Ondansetron Odt [Zofran Odt] 4 mg TL Q6H PRN #10 tablet 02/08/19 QUEtiapine [SEROquel] 400 mg PO QPM tablet 02/08/19 Dicyclomine [Bentyl] 10 mg PO ONCE PRN #10 capsule 02/22/19 Ondansetron Odt [Zofran] 4 mg TL Q6H PRN #10 tablet 02/22/19 - Allergies Allergies/Adverse Reactions: Allergies Allergy/AdvReac Type Severity Reaction Status Date / Time No Known Drug Allergies Allergy Verified 02/22/19 12:55 - Social History Does the pt smoke?: Yes Smoking Status: Current every day smoker Does the pt drink ETOH?: Yes Does the pt have substance abuse?: No - Immunizations Immunizations are current?: Yes - POLST Patient has POLST: No PD ED PE NORMAL - Vitals Vital signs reviewed: Yes - General General: Alert and oriented X 3, No acute distress, Well developed/nourished - HEENT HEENT: Atraumatic, Moist mucous membranes, Pharynx benign - Neck Neck: Supple, no meningeal sign, No JVD - Cardiac Cardiac: RRR, No murmur, No gallop, No rub - Respiratory Respiratory: No respiratory distress, Clear bilaterally - Abdomen Abdomen: Normal bowel sounds, Soft, Non tender, Non distended - Male Male : Deferred - Rectal Rectal: Deferred - Derm Derm: Normal color, Warm and dry, No rash - Extremities Extremities: No deformity, No edema - Neuro Neuro: Alert and oriented X 3, Normal speech Eye Opening: Spontaneous Motor: Obeys Commands Verbal: Oriented GCS Score: 15 - Psych Psych: Normal mood, Normal affect PD ED PE EXPANDED - Abdomen Abdomen: Normal Bowel sounds, Other (negative murphys sign ). No: Tender to palpation, Rebound, Guarding Results - Vitals Vitals: Oxygen O2 Source Room air - Labs Labs: Laboratory Tests 02/22/19 02/22/19 02/22/19 13:45 13:45 14:21 WBC 14.9 H RBC 5.33 Hgb 15.9 Hct 48.8 MCV 91.6 MCH 29.8 MCHC 32.6 RDW 14.0 Plt Count 379 MPV 9.3 Neut # (Auto) 11.9 H Lymph # (Auto) 1.3 L [place] # (Auto) 1.3 H Eos # (Auto) 0.2 Baso # (Auto) 0.1 Absolute Nucleated RBC 0.00 Nucleated RBC % 0.0 Sodium 137 Potassium 4.7 Chloride 105 Carbon Dioxide 21 Anion Gap 11.0 BUN 17 Creatinine 1.1 Estimated GFR (MDRD) 69 L Glucose 109 H Calcium 10.4 H Total Bilirubin 1.0 AST 18 ALT 15 Alkaline Phosphatase 65 Total Protein 8.1 Albumin 4.8 Globulin 3.3 Albumin/Globulin Ratio 1.5 Lipase 48 Urine Color DARK YELLOW Urine Clarity CLEAR Urine pH 5.5 Ur Specific [place] >=1.030 H Urine Protein NEGATIVE Urine Glucose (UA) NEGATIVE Urine Ketones NEGATIVE Urine Occult Blood NEGATIVE Urine Nitrite NEGATIVE Urine Bilirubin NEGATIVE Urine Urobilinogen 0.2 (NORMAL) Ur Leukocyte Esterase NEGATIVE Ur Microscopic Review NOT INDICATED Urine Culture Comments NOT INDICATED Urine Opiates Screen NEGATIVE Ur Oxycodone Screen NEGATIVE Urine Methadone Screen NEGATIVE Ur Propoxyphene Screen NEGATIVE Ur Barbiturates Screen NEGATIVE Ur Tricyclics Screen POSITIVE H Ur Phencyclidine Scrn NEGATIVE Ur Amphetamine Screen NEGATIVE U Methamphetamines Scrn NEGATIVE U Benzodiazepines Scrn NEGATIVE Urine Cocaine Screen NEGATIVE U Cannabinoids Screen POSITIVE H urine negative for infectious properties or ketonuria. labs neg for pancreatitis, lfts normal, perhaps some mild dehydration, pt here is tolerating oral fluids and producing urine, he does have a leukocytosis, but no fever and a nontender abdomen, this may be due to vomiting. At prior ED visit with vomiting he had the same leukocytosis. PD MEDICAL DECISION MAKING - ED course Complexity details: reviewed old records, reviewed results, re-evaluated patient, considered differential, d/w patient, d/w family ED course: ddx- gastroenteritis, gastritis, biliary colic, pancreatitis. kidney stone, cyclic vomiting, cannabinoid hyperemesis, uti 59 y/o M with hx and exam as documented, reported lower abdominal pain mostly right sided here but has hx of appendectomy, no tenderness on my exam, no guarding or rebound and negative murphys sign. He reports he is unable to urinate due to dehydration but in fact urinated here. No ketones, mild dehydration. Pt was given antiemetics, analgesics with some relief. He is tolerating PO fluids without any vomiting in the ED. His LFTs are normal, lipase neg. doubt pancreatitis or biliary disease. his UA is negative for UTI and has no blood to suggest kidney stone. He has a hx of an appendectomy thus doubt appendiceal related infection. His UDS is positive for cannabis. I suspect he is having cannabinoid hyperemsis. He was given haldol and some capsaicin cream here. I discussed this with the pt and feel he is stable for discharge with prn antiemetics and also given bentyl. I do not feel further emergent labs or imaging are indicated at this time. Departure - Departure Disposition: 01 Home, Self Care Clinical Impression: Abdominal pain Qualifiers: Abdominal location: right lower quadrant Qualified Code(s): R10.31 - Right lower quadrant pain Condition: Stable Record reviewed to determine appropriate education?: Yes Instructions: ED Abdominal Pain Unkn Cause Follow-Up: your, doctor [Other] - As Needed Prescriptions: Dicyclomine [Bentyl] 10 mg PO ONCE PRN #10 capsule PRN Reason: Pain Ondansetron Odt [Zofran] 4 mg TL Q6H PRN #10 tablet PRN Reason: Nausea / Vomiting Comments: Your examination, labs and history here are consistent wit dehydration. Your urine test is negative for UTI and not suggestive of a kidney stone. Your associated burping and gas like pain suggests that this may be the cause of your symptoms. Take zofran for nausea and bentyl as needed for pain. Return to the ED if worsening symptoms including vomiting or fever. Discharge Date/Time: 02/22/19 17:00
[2019-02-22 16:46] VITALS: BP 119/81
== END 2019-02-22 17:00 | disposition home or self-care (01) ==
LOC: ED 12:42
DX: R10.31 Right lower quadrant pain (principal); E86.0 Dehydration; D72.829 Elevated white blood cell count, unspecified; Z90.49 Acquired absence of other specified parts of digestive tract; F41.9 Anxiety disorder, unspecified; F17.200 Nicotine dependence, unspecified, uncomplicated
CPT/HCPCS: 36415; 80053; 80306; 81003; 83690; 85025; 96372; 99283; 99284; A9270; 81001; 87086

== ENCOUNTER 2019-02-27 11:26 | Emergency (ER) | payer MEDICAID ==
[2019-02-27] MEDS ORDERED: HALOPERIDOL 5 MG/ML VIAL IVP ONE (12:06)
[2019-02-27] MEDS ORDERED: SODIUM CHLORIDE 0.9% 1,000 ML IV ONE (12:06)
[2019-02-27] MEDS ORDERED: PANTOPRAZOLE 40 MG VIAL IVP STA (12:06)
[2019-02-27] MEDS ORDERED: MAG HYDROX/AL HYDROX/SIMETH 30 ML UDC PO STA (12:08)
[2019-02-27] MEDS ORDERED: LIDOCAINE VISCOUS 2% 15 ML UDC MM STA (12:08)
--- NOTE | 2019-02-27 12:12 | ED Physician Documentation ---
PD HPI ABD PAIN - Stated complaint Stated Complaint: VOMITING - Chief complaint Chief Complaint: Abd Pain - History obtained from History obtained from: Patient - History of Present Illness Timing - onset: Other (This is a 59-year-old gentleman with remote appendectomy who has had vomiting and diarrhea for the last 2 days. This is seems to be an exacerbation of a now chronic illness for which he has had thorough work-ups without causative etiology. was using marijuana frequently but says he has not used in a couple of weeks now.) Review of Systems Constitutional: reports: Sweats. denies: Fever, Chills Throat: reports: Sore throat Cardiac: denies: Chest pain / pressure, Palpitations Respiratory: denies: Dyspnea, Cough GI: reports: Abdominal Pain, Nausea, Vomiting, Diarrhea. denies: Hematemesis, Bloody / black stool PD PAST MEDICAL HISTORY - Past Medical History Cardiovascular: None Respiratory: None Neuro: Headaches Endocrine/Autoimmune: None GI: None : None HEENT: None Psych: Depression, Anxiety, Bipolar disorder Musculoskeletal: Osteoarthritis Derm: None - Past Surgical History Past Surgical History: No General: Appendectomy Ortho: Shoulder arthroplasty HEENT: Tonsil/Adenoidectomy - Present Medications Home Medications: Ambulatory Orders Medication Instructions Recorded Confirmed Bupropion HCl [Bupropion Xl] 300 mg PO DAILY 06/15/18 06/15/18 Gabapentin 800 mg PO TID 06/15/18 06/15/18 QUEtiapine [SEROquel] 400 mg PO ACHS 06/15/18 06/15/18 busPIRone [Buspar] 15 mg PO BID 06/15/18 06/15/18 Buspirone HCl 30 mg PO BID #14 tablet 12/06/18 Ondansetron Odt [Zofran Odt] 4 mg TL Q6H PRN #10 tablet 02/08/19 QUEtiapine [SEROquel] 400 mg PO QPM tablet 02/08/19 Dicyclomine [Bentyl] 10 mg PO ONCE PRN #10 capsule 02/22/19 Ondansetron Odt [Zofran] 4 mg TL Q6H PRN #10 tablet 02/22/19 Dicyclomine [Bentyl] 20 mg PO QID PRN #15 capsule 02/27/19 Ondansetron Odt [Zofran] 4 mg TL Q6H PRN #10 tablet 02/27/19 - Allergies Allergies/Adverse Reactions: Allergies Allergy/AdvReac Type Severity Reaction Status Date / Time No Known Drug Allergies Allergy Verified 02/22/19 12:55 - Social History Does the pt smoke?: Yes Smoking Status: Current every day smoker Does the pt drink ETOH?: Yes Does the pt have substance abuse?: No - Immunizations Immunizations are current?: Yes - POLST Patient has POLST: No PD ED PE NORMAL - Vitals Vital signs reviewed: Yes - General General: Alert and oriented X 3, No acute distress - HEENT HEENT: Pharynx benign - Cardiac Cardiac: RRR, No murmur - Respiratory Respiratory: No respiratory distress, Clear bilaterally - Abdomen Abdomen: Normal bowel sounds, Soft, Non tender - Derm Derm: Normal color, Warm and dry - Neuro Neuro: Alert and oriented X 3, No motor deficit, No sensory deficit, Normal speech Results - Vitals Vitals: Vital Signs - 24 hr 02/27/19 02/27/19 02/27/19 11:37 11:39 13:32 Temperature 36.3 C L 36.7 C Heart Rate 85 78 78 Respiratory 18 18 Rate Blood Pressure 115/86 H 134/83 H 119/78 O2 Saturation 97 99 96 Oxygen O2 Source Room air - Labs Labs: Laboratory Tests 02/27/19 02/27/19 11:50 11:50 WBC 8.1 RBC 4.65 L Hgb 14.2 Hct 42.4 MCV 91.2 MCH 30.5 MCHC 33.5 RDW 13.5 Plt Count 339 MPV 9.7 Neut # (Auto) 6.0 Lymph # (Auto) 1.4 L [place] # (Auto) 0.6 Eos # (Auto) 0.1 Baso # (Auto) 0.1 Absolute Nucleated RBC 0.00 Nucleated RBC % 0.0 Sodium 137 Potassium 3.8 Chloride 106 Carbon Dioxide 21 Anion Gap 10.0 BUN 11 Creatinine 0.9 Estimated GFR (MDRD) 87 L Glucose 100 Calcium 9.0 Total Bilirubin 0.8 AST 17 ALT 16 Alkaline Phosphatase 66 Total Protein 7.4 Albumin 4.5 Globulin 2.9 Albumin/Globulin Ratio 1.6 Lipase 42 PD MEDICAL DECISION MAKING - ED course ED course: 59-year-old gentleman with now recurrent chronic issues, may be cannabinoid hyperemesis. Nontender belly and reassuring labs. Previous work-ups reviewed without pertinent positive findings. Treated stepwise with medications with improvement. On recheck at 1:35 PM was nontender to palpation. Still having a little bit of pain. Departure - Departure Disposition: 01 Home, Self Care Clinical Impression: Abdominal pain Qualifiers: Abdominal location: generalized Qualified Code(s): R10.84 - Generalized abdominal pain Vomiting Qualifiers: Vomiting type: unspecified Vomiting Intractability: non-intractable Nausea presence: with nausea Qualified Code(s): R11.2 - Nausea with vomiting, unspecified Condition: Good Record reviewed to determine appropriate education?: Yes Instructions: Abdominal Pain, ED Nausea Vomiting Prescriptions: Dicyclomine [Bentyl] 20 mg PO QID PRN #15 capsule PRN Reason: Abdominal Pain Ondansetron Odt [Zofran] 4 mg TL Q6H PRN #10 tablet PRN Reason: Nausea / Vomiting Comments: Continue to avoid marijuana. Follow-up with your physician, as discussed I recommend a referral to a hand twister since you have not had this done yet. Return anytime if worse.
[2019-02-27 12:18] LABS: BASOPHILS # (AUTO) 0.1 10^3/uL (0.0-0.1); BASOPHILS % (AUTO) 0.6 %; EOSINOPHILS # (AUTO) 0.1 10^3/uL (0.0-0.7); EOSINOPHILS % (AUTO) 0.6 %; HGB - HEMOGLOBIN 14.2 g/dL (14.0-18.0); LYMPHOCYTES # (AUTO) 1.4 10^3/uL (1.5-3.5); LYMPHOCYTES % (AUTO) 17.1 %; MEAN CORPUSCULAR HEMOGLOBIN 30.5 pg (27.0-31.0); MEAN CORPUSCULAR HGB CONC 33.5 g/dL (32.0-36.0); MEAN CORPUSCULAR VOLUME 91.2 fL (80.0-94.0); MEAN PLATELET VOLUME 9.7 fL (7.4-11.4); MONOCYTES # (AUTO) 0.6 10^3/uL (0.0-1.0); MONOCYTES % (AUTO) 7.6 %; NEUTROPHILS % (AUTO) 73.7 %; PLT - PLATELET COUNT 339 10^3/uL (130-450); RED BLOOD COUNT 4.65 10^6/uL (4.70-6.10); RED CELL DISTRIBUTION WIDTH 13.5 % (12.0-15.0); WHITE BLOOD COUNT 8.1 x10^3/uL (4.8-10.8)
[2019-02-27 12:28] LABS: ALBUMIN 4.5 g/dL (3.2-5.5); ALBUMIN/GLOBULIN RATIO 1.6 (1.0-2.2); BILIRUBIN,TOTAL 0.8 mg/dL (0.2-1.0); CREATININE 0.9 mg/dL (0.6-1.2); TOTAL PROTEIN 7.4 g/dL (6.7-8.2)
[2019-02-27] MEDS ORDERED: PROMETHAZINE INJ 12.5 MG in SODIUM CHLORIDE 0.9% 50 ML IV STA (12:53)
[2019-02-27] MEDS ORDERED: KETOROLAC 30 MG/ML VIAL IVP STA (12:53)
[2019-02-27] MEDS ORDERED: MORPHINE 2 MG/ML CARPUJECT IVP STA (12:53)
[2019-02-27 13:33] VITALS: BP 119/78
== END 2019-02-27 13:45 | disposition home or self-care (01) ==
LOC: ED 11:26
DX: R10.84 Generalized abdominal pain (principal); R11.2 Nausea with vomiting, unspecified; R19.7 Diarrhea, unspecified; F17.200 Nicotine dependence, unspecified, uncomplicated
CPT/HCPCS: 36415; 80053; 83690; 85025; 96361; 96365; 96375; 99284; A9270; J7040

== ENCOUNTER 2019-04-30 12:21 | Emergency (ER) | payer MEDICARE, MEDICAID ==
[2019-04-30 12:42] VITALS: BP 122/84
[2019-04-30] MEDS ORDERED: QUEtiapine 100 MG TABLET PO STA (13:17)
--- NOTE | 2019-04-30 13:19 | ED Physician Documentation ---
History of Present Illness - Stated complaint Stated Complaint: anxiety - Chief complaint Chief Complaint: MHE - History obtained from History obtained from: Patient, Family - History of Present Illness Timing: How many days ago (3) Pain level max: 0 Pain level now: 0 - Additonal information Additional information: 59-year-old male is out of his Seroquel. States he is feeling anxious and like he cannot sit still. He states that he lost his Seroquel and has not had it refilled at the pharmacy due to cost. Nothing makes it better or worse Review of Systems Constitutional: denies: Fever, Chills GI: denies: Vomiting, Diarrhea Skin: denies: Rash Musculoskeletal: denies: Neck pain, Back pain Neurologic: denies: Headache PD PAST MEDICAL HISTORY - Past Medical History Cardiovascular: None Respiratory: None Neuro: Headaches Endocrine/Autoimmune: None GI: None : None HEENT: None Psych: Depression, Anxiety, Bipolar disorder Musculoskeletal: Osteoarthritis Derm: None - Past Surgical History Past Surgical History: No General: Appendectomy Ortho: Shoulder arthroplasty HEENT: Tonsil/Adenoidectomy - Present Medications Home Medications: Ambulatory Orders Medication Instructions Recorded Confirmed Bupropion HCl [Bupropion Xl] 300 mg PO DAILY 06/15/18 06/15/18 Gabapentin 800 mg PO TID 06/15/18 06/15/18 QUEtiapine [SEROquel] 400 mg PO ACHS 06/15/18 06/15/18 busPIRone [Buspar] 15 mg PO BID 06/15/18 06/15/18 Buspirone HCl 30 mg PO BID #14 tablet 12/06/18 Ondansetron Odt [Zofran Odt] 4 mg TL Q6H PRN #10 tablet 02/08/19 QUEtiapine [SEROquel] 400 mg PO QPM tablet 02/08/19 Dicyclomine [Bentyl] 10 mg PO ONCE PRN #10 capsule 02/22/19 Ondansetron Odt [Zofran] 4 mg TL Q6H PRN #10 tablet 02/22/19 Dicyclomine [Bentyl] 20 mg PO QID PRN #15 capsule 02/27/19 Ondansetron Odt [Zofran] 4 mg TL Q6H PRN #10 tablet 02/27/19 Quetiapine Fumarate [Seroquel] 400 mg PO DAILY #30 tablet 04/30/19 - Allergies Allergies/Adverse Reactions: Allergies Allergy/AdvReac Type Severity Reaction Status Date / Time No Known Drug Allergies Allergy Verified 04/30/19 12:42 - Social History Does the pt smoke?: Yes Smoking Status: Current every day smoker Does the pt drink ETOH?: Yes Does the pt have substance abuse?: No - Immunizations Immunizations are current?: Yes - POLST Patient has POLST: No PD ED PE NORMAL - Vitals Vital signs reviewed: Yes - General General: Alert and oriented X 3, No acute distress - HEENT HEENT: Moist mucous membranes - Neck Neck: Supple, no meningeal sign - Cardiac Cardiac: RRR - Respiratory Respiratory: No respiratory distress, Clear bilaterally - Abdomen Abdomen: Soft, Non tender, Non distended - Derm Derm: Warm and dry - Extremities Extremities: No edema - Neuro Neuro: Alert and oriented X 3 - Psych Psych: Normal mood, Normal affect Results - Vitals Vitals: Vital Signs - 24 hr 04/30/19 12:37 Temperature 36.4 C L Heart Rate 84 Respiratory 16 Rate Blood Pressure 122/84 H O2 Saturation 97 Oxygen O2 Source Room air PD MEDICAL DECISION MAKING - ED course Complexity details: considered differential, d/w patient, d/w family ED course: Patient out of his Seroquel. We will refill this for him. The good Rx ned was installed on his phone and the medication should cost around $14. Patient and family counseled regarding signs and symptoms for which I believe and urgent re- evaluation would be necessary. Patient with good understanding of and agreement to plan and is comfortable going home at this time This document was made in part using voice recognition software. While efforts are made to proofread this document, sound alike and grammatical errors may occur. Departure - Departure Disposition: 01 Home, Self Care Clinical Impression: Anxiety, Medication refill Condition: Good Instructions: ED Panic Attack Follow-Up: your,doctor in 1 week [Other] Prescriptions: Quetiapine Fumarate [Seroquel] 400 mg PO DAILY #30 tablet Comments: Use the Seroquel as prescribed. Return if you worsen. Follow-up with your doctor for further care.
== END 2019-04-30 13:30 | disposition home or self-care (01) ==
LOC: ED 12:21
DX: F41.9 Anxiety disorder, unspecified (principal); Z76.0 Encounter for issue of repeat prescription; F17.200 Nicotine dependence, unspecified, uncomplicated
CPT/HCPCS: 99282; 99284; A9270

== ENCOUNTER 2019-05-15 09:17 | Emergency (ER) | payer MEDICARE, MEDICAID ==
--- NOTE | 2019-05-15 09:35 | ED Physician Documentation ---
PD HPI NVD - Stated complaint Stated Complaint: VOMITING - Chief complaint Chief Complaint: Abd Pain - History obtained from History obtained from: Patient - History of Present Illness Timing - onset: How many days ago (2) Timing - duration: Days (2) Timing - details: Abrupt onset, Still present Associated symptoms: Abdominal pain (upper abd cramping), Loss of appetite. No: Fever, Chest pain, Hematemesis Contributing factors: No: Sick contact, Bad food, Recent antibiotics Similar symptoms before: No diagnosis Recently seen: Not recently seen Review of Systems Constitutional: denies: Fever, Chills, Myalgias Nose: denies: Rhinorrhea / runny nose, Congestion Throat: denies: Sore throat Cardiac: denies: Chest pain / pressure Respiratory: denies: Dyspnea, Cough GI: reports: Abdominal Pain, Nausea, Vomiting, Diarrhea. denies: Abdominal Swelling, Constipation, Hematemesis, Bloody / black stool : denies: Dysuria, Frequency Neurologic: reports: Generalized weakness. denies: Focal weakness, Numbness, Near syncope PD PAST MEDICAL HISTORY - Past Medical History Cardiovascular: None Respiratory: None Neuro: Headaches Endocrine/Autoimmune: None GI: None : None HEENT: None Psych: Depression, Anxiety, Bipolar disorder Musculoskeletal: Osteoarthritis Derm: None - Past Surgical History Past Surgical History: No General: Appendectomy Ortho: Shoulder arthroplasty HEENT: Tonsil/Adenoidectomy - Present Medications Home Medications: Ambulatory Orders Medication Instructions Recorded Confirmed Bupropion HCl [Bupropion Xl] 300 mg PO DAILY 06/15/18 06/15/18 Gabapentin 800 mg PO TID 06/15/18 06/15/18 QUEtiapine [SEROquel] 400 mg PO ACHS 06/15/18 06/15/18 busPIRone [Buspar] 15 mg PO BID 06/15/18 06/15/18 Buspirone HCl 30 mg PO BID #14 tablet 12/06/18 Ondansetron Odt [Zofran Odt] 4 mg TL Q6H PRN #10 tablet 02/08/19 QUEtiapine [SEROquel] 400 mg PO QPM tablet 02/08/19 Dicyclomine [Bentyl] 10 mg PO ONCE PRN #10 capsule 02/22/19 Ondansetron Odt [Zofran] 4 mg TL Q6H PRN #10 tablet 02/22/19 Dicyclomine [Bentyl] 20 mg PO QID PRN #15 capsule 02/27/19 Ondansetron Odt [Zofran] 4 mg TL Q6H PRN #10 tablet 02/27/19 Quetiapine Fumarate [Seroquel] 400 mg PO DAILY #30 tablet 04/30/19 Buspirone HCl 30 mg PO DAILY #10 tablet 05/15/19 Diphenoxylate/Atropine [Lomotil] 1 each PO QID PRN #12 tablet 05/15/19 Famotidine 20 mg PO DAILY #30 tablet 05/15/19 Ondansetron Odt [Zofran] 4 mg TL Q6H PRN #20 tablet 05/15/19 - Allergies Allergies/Adverse Reactions: Allergies Allergy/AdvReac Type Severity Reaction Status Date / Time No Known Drug Allergies Allergy Verified 05/15/19 09:20 - Social History Does the pt smoke?: Yes Smoking Status: Current every day smoker Does the pt drink ETOH?: Yes Does the pt have substance abuse?: No - Immunizations Immunizations are current?: Yes - POLST Patient has POLST: No PD ED PE NORMAL - Vitals Vital signs reviewed: Yes - General General: Alert and oriented X 3, Well developed/nourished (but moderately unkempt), Other (appears uncomfortable and holding emesis bag. ) - HEENT HEENT: PERRL (nonicteric), Pharynx benign - Neck Neck: Supple, no meningeal sign, No adenopathy - Cardiac Cardiac: RRR, No murmur - Respiratory Respiratory: Clear bilaterally - Abdomen Abdomen: Normal bowel sounds, Non distended, No organomegaly, Other (some tender epigastric without percussion nor rebound tenderness. Lower abd not tender. ) - Back Back: No CVA TTP - Derm Derm: Normal color, Warm and dry - Extremities Extremities: No tenderness to palpate, Normal ROM s pain, No edema, No calf tenderness / cord - Neuro Neuro: Alert and oriented X 3, No motor deficit, Normal speech Results - Vitals Vitals: Vital Signs - 24 hr 05/15/19 05/15/19 05/15/19 09:20 11:44 13:12 Temperature 36.4 C L 37.1 C 36.7 C Heart Rate 101 H 81 91 Respiratory 20 14 12 Rate Blood Pressure 143/87 H 112/65 120/80 O2 Saturation 97 96 95 Oxygen O2 Source Room air - Labs Labs: Laboratory Tests 05/15/19 05/15/19 05/15/19 09:48 09:48 11:45 WBC 7.9 RBC 5.02 Hgb 15.5 Hct 44.6 MCV 88.8 MCH 30.9 MCHC 34.8 RDW 13.3 Plt Count 313 MPV 10.0 Neut # (Auto) 5.5 Lymph # (Auto) 1.4 L Clarke # (Auto) 0.8 Eos # (Auto) 0.1 Baso # (Auto) 0.1 Absolute Nucleated RBC 0.00 Nucleated RBC % 0.0 Sodium 133 L Potassium 3.9 Chloride 100 L Carbon Dioxide 20 L Anion Gap 13.0 BUN 11 Creatinine 1.0 Estimated GFR (MDRD) 77 L Glucose 101 H Calcium 9.4 Magnesium 2.1 Total Bilirubin 1.0 AST 17 ALT 17 Alkaline Phosphatase 68 Total Protein 7.6 Albumin 4.6 Globulin 3.0 Albumin/Globulin Ratio 1.5 Lipase 31 Urine Color YELLOW Urine Clarity CLEAR Urine pH 6.0 Ur Specific [place] 1.010 Urine Protein NEGATIVE Urine Glucose (UA) NEGATIVE Urine Ketones TRACE Urine Occult Blood NEGATIVE Urine Nitrite NEGATIVE Urine Bilirubin NEGATIVE Urine Urobilinogen 0.2 (NORMAL) Ur Leukocyte Esterase NEGATIVE Ur Microscopic Review NOT INDICATED Urine Culture Comments NOT INDICATED Urine Opiates Screen NEGATIVE Ur Oxycodone Screen NEGATIVE Urine Methadone Screen NEGATIVE Ur Propoxyphene Screen NEGATIVE Ur Barbiturates Screen NEGATIVE Ur Tricyclics Screen POSITIVE H Ur Phencyclidine Scrn NEGATIVE Ur Amphetamine Screen NEGATIVE U Methamphetamines Scrn NEGATIVE U Benzodiazepines Scrn NEGATIVE Urine Cocaine Screen NEGATIVE U Cannabinoids Screen POSITIVE H PD MEDICAL DECISION MAKING - ED course Complexity details: re-evaluated patient (improved with IV lfuids and meds, haldol and Ativan, famotidine. Then some Phenergan. ), considered differential (could be viral GE though has been recurrent. No prior firm findings on workup. Had Abd CT and U/S last December, so unlikely to have new findings with these without definite physical findings. Prior visits considered cannibis hyperemesis. ), d/w patient Departure - Departure Disposition: 01 Home, Self Care Clinical Impression: Nausea vomiting and diarrhea, Upper abdominal pain Condition: Stable Record reviewed to determine appropriate education?: Yes Instructions: ED Diet Vomiting Diarrhea Follow-Up: Casimiro Lee PA-C [Primary Care Provider] - Prescriptions: Buspirone HCl 30 mg PO DAILY #10 tablet Diphenoxylate/Atropine [Lomotil] 1 each PO QID PRN #12 tablet PRN Reason: Diarrhea Famotidine 20 mg PO DAILY #30 tablet Ondansetron Odt [Zofran] 4 mg TL Q6H PRN #20 tablet PRN Reason: Nausea / Vomiting Comments: Small frequent fluids through the day today and bland food initially and progress as tolerated. Ondansetron as needed for nausea. Lomotil if needed for diarrhea. Continue usual medications. I wrote for an interim dose of the BuSpar until you can see your provider and get a refill. Famotidine acid reducing medicine daily to try to help with your upper abdominal pain. Add Tylenol if needed for pains. Follow-up with your primary care this coming week, call Friday for an appointment. Discharge Date/Time: 05/15/19 13:15
[2019-05-15] MEDS ORDERED: SODIUM CHLORIDE 0.9% 1,000 ML IV ONE ×2 (09:50→11:39)
[2019-05-15] MEDS ORDERED: LORazepam 2 MG/ML VIAL IVP STA (09:51)
[2019-05-15] MEDS ORDERED: HALOPERIDOL 5 MG/ML VIAL IVP ONE (09:51)
[2019-05-15] MEDS ORDERED: FAMOTIDINE 20 MG/2 ML VIAL IVP STA (09:51)
[2019-05-15 10:01] LABS: BASOPHILS # (AUTO) 0.1 10^3/uL (0.0-0.1); BASOPHILS % (AUTO) 0.8 %; EOSINOPHILS # (AUTO) 0.1 10^3/uL (0.0-0.7); EOSINOPHILS % (AUTO) 1.5 %; HGB - HEMOGLOBIN 15.5 g/dL (14.0-18.0); LYMPHOCYTES # (AUTO) 1.4 10^3/uL (1.5-3.5); LYMPHOCYTES % (AUTO) 17.8 %; MEAN CORPUSCULAR HEMOGLOBIN 30.9 pg (27.0-31.0); MEAN CORPUSCULAR HGB CONC 34.8 g/dL (32.0-36.0); MEAN CORPUSCULAR VOLUME 88.8 fL (80.0-94.0); MONOCYTES # (AUTO) 0.8 10^3/uL (0.0-1.0); MONOCYTES % (AUTO) 9.6 %; NEUTROPHILS # (AUTO) 5.5 10^3/uL (1.5-6.6); PLT - PLATELET COUNT 313 10^3/uL (130-450); RED BLOOD COUNT 5.02 10^6/uL (4.70-6.10); RED CELL DISTRIBUTION WIDTH 13.3 % (12.0-15.0); WHITE BLOOD COUNT 7.9 x10^3/uL (4.8-10.8)
[2019-05-15] MEDS ORDERED: DIPHENOX/ATROPINE 2.5/0.025 MG TABLET PO STA (10:11)
[2019-05-15 10:13] LABS: ALBUMIN 4.6 g/dL (3.2-5.5); ALBUMIN/GLOBULIN RATIO 1.5 (1.0-2.2); CALCIUM 9.4 mg/dL (8.5-10.3); MAGNESIUM 2.1 mg/dL (1.7-2.8); TOTAL PROTEIN 7.6 g/dL (6.7-8.2)
[2019-05-15] MEDS ORDERED: PROMETHAZINE INJ 12.5 MG in SODIUM CHLORIDE 0.9% 50 ML IV STA (11:30)
[2019-05-15 11:47] LABS: MUDS CUTOFF CONCENTRATIONS CUTOFF CONC BELOW:
[2019-05-15 11:49] LABS: BILIRUBIN,URINE NEGATIVE (NEGATIVE); GLUCOSE, URINE (UA) NEGATIVE (NEGATIVE); KETONES,URINE (UA) TRACE mg/dL (NEGATIVE); LEUKOCYTE ESTERASE, URINE NEGATIVE (NEGATIVE); NITRITE,URINE NEGATIVE (NEGATIVE); OCCULT BLOOD,URINE NEGATIVE (NEGATIVE); PROTEIN,URINE NEGATIVE (NEGATIVE); UROBILINOGEN,URINE 0.2 (NORMAL) E.U./dL (NORMAL)
[2019-05-15 11:51] LABS: CLARITY,URINE CLEAR (CLEAR)
[2019-05-15 12:00] LABS: AMPHETAMINE SCREEN,URINE NEGATIVE (NEGATIVE); BENZODIAZEPINES SCREEN, URINE NEGATIVE (NEGATIVE); COCAINE SCREEN URINE NEGATIVE (NEGATIVE); METHADONE SCREEN, URINE NEGATIVE (NEGATIVE); METHAMPHETAMINES SCREEN, URINE NEGATIVE (NEGATIVE); OPIATE SCREEN, URINE NEGATIVE (NEGATIVE); OXYCODONE SCREEN, URINE NEGATIVE (NEGATIVE); PROPOXYPHENE SCREEN, URINE NEGATIVE (NEGATIVE); TRICYCLIC ANTIDEPRESSANT,URINE POSITIVE (NEGATIVE)
[2019-05-15 13:13] VITALS: BP 120/80
== END 2019-05-15 13:15 | disposition home or self-care (01) ==
LOC: ED 09:17
DX: R10.13 Epigastric pain (principal); R11.2 Nausea with vomiting, unspecified; R19.7 Diarrhea, unspecified; F17.200 Nicotine dependence, unspecified, uncomplicated; R53.1 Weakness
CPT/HCPCS: 36415; 80053; 81003; 83690; 83735; 85025; 96361; 96365; 96375; 99284; A9270; J2060; J7040; 80306; 81001; 87086

== ENCOUNTER 2019-05-17 10:28 | Emergency (ER) | payer MEDICARE, MEDICAID ==
[2019-05-17 10:57] LABS: BASOPHILS # (AUTO) 0.1 10^3/uL (0.0-0.1); BASOPHILS % (AUTO) 0.8 %; EOSINOPHILS # (AUTO) 0.1 10^3/uL (0.0-0.7); EOSINOPHILS % (AUTO) 0.6 %; LYMPHOCYTES # (AUTO) 1.4 10^3/uL (1.5-3.5); LYMPHOCYTES % (AUTO) 12.8 %; MEAN CORPUSCULAR HEMOGLOBIN 29.5 pg (27.0-31.0); MEAN CORPUSCULAR HGB CONC 33.9 g/dL (32.0-36.0); MEAN PLATELET VOLUME 9.1 fL (7.4-11.4); MONOCYTES # (AUTO) 0.9 10^3/uL (0.0-1.0); MONOCYTES % (AUTO) 8.1 %; NEUTROPHILS # (AUTO) 8.4 10^3/uL (1.5-6.6); NEUTROPHILS % (AUTO) 77.2 %; PLT - PLATELET COUNT 359 10^3/uL (130-450); RED BLOOD COUNT 5.09 10^6/uL (4.70-6.10); RED CELL DISTRIBUTION WIDTH 13.2 % (12.0-15.0); WHITE BLOOD COUNT 10.9 x10^3/uL (4.8-10.8)
[2019-05-17] MEDS ORDERED: LORazepam 2 MG/ML VIAL IVP STA (11:05)
[2019-05-17 11:15] LABS: ALBUMIN 4.4 g/dL (3.2-5.5); ALBUMIN/GLOBULIN RATIO 1.5 (1.0-2.2); BILIRUBIN,TOTAL 0.8 mg/dL (0.2-1.0); CALCIUM 9.4 mg/dL (8.5-10.3); TOTAL PROTEIN 7.3 g/dL (6.7-8.2)
[2019-05-17 12:17] LABS: BILIRUBIN,URINE NEGATIVE (NEGATIVE); GLUCOSE, URINE (UA) NEGATIVE (NEGATIVE); KETONES,URINE (UA) NEGATIVE (NEGATIVE); LEUKOCYTE ESTERASE, URINE NEGATIVE (NEGATIVE); NITRITE,URINE NEGATIVE (NEGATIVE); OCCULT BLOOD,URINE NEGATIVE (NEGATIVE); PROTEIN,URINE NEGATIVE (NEGATIVE); UROBILINOGEN,URINE 0.2 (NORMAL) E.U./dL (NORMAL)
[2019-05-17 12:22] LABS: CLARITY,URINE CLEAR (CLEAR)
--- NOTE | 2019-05-17 13:01 | ED Physician Documentation ---
History of Present Illness - Stated complaint Stated Complaint: NEAR SYNCOPE/VOMITING - Chief complaint Chief Complaint: Abd Pain - History obtained from History obtained from: Patient, Family - History of Present Illness Timing: Last night - Additonal information Additional information: 59-year-old male who has been stable on his psychiatric medications including buspirone 30 mg 3 times daily and Seroquel 400 mg at bedtime has run out of his medications about 3 days ago. Last night he began to feel some abnormalities of anxiousness and agitation and difficulty swallowing. He has had a lot of jumping to his legs. He was unable to sleep last night and he comes into the emergency department this morning hyperventilating and hallucinating. He states that he tried to go to the clinic to get his medications refilled and he was shoed away from the clinic as to acute. He was told to come to the emergency department for evaluation. The patient has been given Ativan prior to my evaluation of him and he feels much improved. Review of Systems Constitutional: denies: Fever, Chills Eyes: denies: Decreased vision Ears: denies: Ear pain Nose: denies: Rhinorrhea / runny nose, Congestion Throat: denies: Sore throat Cardiac: denies: Chest pain / pressure, Palpitations Respiratory: denies: Dyspnea GI: reports: Nausea, Vomiting : reports: Frequency. denies: Dysuria Neurologic: reports: Difficulty speaking, Confused. denies: Generalized weakness, Focal weakness, Numbness Psychiatric: reports: Hallucinations, Insomnia PD PAST MEDICAL HISTORY - Past Medical History Past Medical History: Yes Cardiovascular: None Respiratory: None Neuro: Headaches Endocrine/Autoimmune: None GI: None : None HEENT: None Psych: Depression, Anxiety, Bipolar disorder Musculoskeletal: Osteoarthritis Derm: None - Past Surgical History Past Surgical History: Yes General: Appendectomy Ortho: Shoulder arthroplasty HEENT: Tonsil/Adenoidectomy - Present Medications Home Medications: Ambulatory Orders Medication Instructions Recorded Confirmed Bupropion HCl [Bupropion Xl] 300 mg PO DAILY 06/15/18 06/15/18 Gabapentin 800 mg PO TID 06/15/18 06/15/18 QUEtiapine [SEROquel] 400 mg PO ACHS 06/15/18 06/15/18 busPIRone [Buspar] 15 mg PO BID 06/15/18 06/15/18 Buspirone HCl 30 mg PO BID #14 tablet 12/06/18 Ondansetron Odt [Zofran Odt] 4 mg TL Q6H PRN #10 tablet 02/08/19 QUEtiapine [SEROquel] 400 mg PO QPM tablet 02/08/19 Dicyclomine [Bentyl] 10 mg PO ONCE PRN #10 capsule 02/22/19 Ondansetron Odt [Zofran] 4 mg TL Q6H PRN #10 tablet 02/22/19 Dicyclomine [Bentyl] 20 mg PO QID PRN #15 capsule 02/27/19 Ondansetron Odt [Zofran] 4 mg TL Q6H PRN #10 tablet 02/27/19 Quetiapine Fumarate [Seroquel] 400 mg PO DAILY #30 tablet 04/30/19 Buspirone HCl 30 mg PO DAILY #10 tablet 05/15/19 Diphenoxylate/Atropine [Lomotil] 1 each PO QID PRN #12 tablet 05/15/19 Famotidine 20 mg PO DAILY #30 tablet 05/15/19 Ondansetron Odt [Zofran] 4 mg TL Q6H PRN #20 tablet 05/15/19 Buspirone HCl 30 mg PO TID #30 tablet 05/17/19 QUEtiapine [SEROquel] 400 mg PO QPM #40 tablet 05/17/19 - Allergies Allergies/Adverse Reactions: Allergies Allergy/AdvReac Type Severity Reaction Status Date / Time No Known Drug Allergies Allergy Verified 05/17/19 10:40 - Social History Does the pt smoke?: Yes Smoking Status: Current every day smoker Does the pt drink ETOH?: Yes Does the pt have substance abuse?: No - Immunizations Immunizations are current?: Yes - POLST Patient has POLST: No PD ED PE NORMAL - Vitals Vital signs reviewed: Yes (tachypneic and hypertensive) - General General: Alert and oriented X 3, No acute distress, Well developed/nourished, Other (Patient is examined following administration of Ativan intravenously. He is now calm is no longer tachypneic and he is not hallucinating) - HEENT HEENT: Atraumatic, PERRL, EOMI, Ears normal, Moist mucous membranes, Pharynx benign, Dentition benign - Neck Neck: Supple, no meningeal sign, No bony TTP - Cardiac Cardiac: RRR, No murmur - Respiratory Respiratory: No respiratory distress, Clear bilaterally - Abdomen Abdomen: Soft, Non tender - Back Back: No CVA TTP, No spinal TTP - Derm Derm: Normal color, Warm and dry, No rash - Extremities Extremities: No deformity, No tenderness to palpate, Normal ROM s pain, No edema, No calf tenderness / cord - Neuro Neuro: Alert and oriented X 3 Eye Opening: Spontaneous Motor: Obeys Commands Verbal: Oriented GCS Score: 15 - Psych Psych: Normal mood, Normal affect Results - Vitals Vitals: Vital Signs - 24 hr 05/17/19 05/17/19 05/17/19 10:37 10:57 11:30 Temperature 36.6 C Heart Rate 94 86 97 Respiratory 40 H 40 H 29 H Rate Blood Pressure 114/91 H 134/94 H 122/83 H O2 Saturation 99 99 94 05/17/19 13:13 Temperature Heart Rate 98 Respiratory 20 Rate Blood Pressure 126/85 H O2 Saturation 96 Oxygen O2 Source Room air - EKG (time done) 1047 Rate: Rate (enter#) (94) Rhythm: NSR Compare to prior EKG: Changed from prior EKG (SPT 02-07-2019 there is baseline wander today) Computer interpretation: Disagree with computer (The rythm is not a-flutter there is artifact in the tracing from movement) - Labs Labs: Laboratory Tests 05/17/19 05/17/19 05/17/19 10:51 10:51 12:01 WBC 10.9 H RBC 5.09 Hgb 15.0 Hct 44.3 MCV 87.0 MCH 29.5 MCHC 33.9 RDW 13.2 Plt Count 359 MPV 9.1 Neut # (Auto) 8.4 H Lymph # (Auto) 1.4 L Person # (Auto) 0.9 Eos # (Auto) 0.1 Baso # (Auto) 0.1 Absolute Nucleated RBC 0.00 Nucleated RBC % 0.0 Sodium 133 L Potassium 3.8 Chloride 101 Carbon Dioxide 20 L Anion Gap 12.0 BUN 8 Creatinine 1.0 Estimated GFR (MDRD) 77 L Glucose 93 Calcium 9.4 Total Bilirubin 0.8 AST 16 ALT 15 Alkaline Phosphatase 61 Total Protein 7.3 Albumin 4.4 Globulin 2.9 Albumin/Globulin Ratio 1.5 Lipase 48 Urine Color YELLOW Urine Clarity CLEAR Urine pH 6.0 Ur Specific [place] <=1.005 Urine Protein NEGATIVE Urine Glucose (UA) NEGATIVE Urine Ketones NEGATIVE Urine Occult Blood NEGATIVE Urine Nitrite NEGATIVE Urine Bilirubin NEGATIVE Urine Urobilinogen 0.2 (NORMAL) Ur Leukocyte Esterase NEGATIVE Ur Microscopic Review NOT INDICATED Urine Culture Comments NOT INDICATED PD MEDICAL DECISION MAKING - ED course Complexity details: considered differential, d/w patient, d/w family ED course: 59-year-old male with a myriad of symptoms much improved after administration of Ativan appears to have benzodiazepine withdrawal and Seroquel withdrawal symptoms. We will refill his medications for the next week to allow him time to get into see his prescriber to have his prescriptions refilled. He is given ativan 1mg IV here and a dose of his buspar 30mg now. The pharmacy did call back here when he arrived there and they were concerned about his fill rate and indicated he had filled this medication on the Apr for on week. He ran out early and a script from Dr. Shabazz was not filled by the pharmacy over the weekend. I did find that the patient states he is taking buspar tid and his chart indicates bid. I did speak to the pharmacist about the descrepancy and by the PMD's script this is would be bid. I did ask the pharmacist to licensed professional counselor the patient about the dosing interval and he will need to follow up with his PMD to adjust his dose accordingly. Departure - Departure Disposition: 01 Home, Self Care Clinical Impression: Benzodiazepine withdrawal with delirium Condition: Stable Instructions: ED Withdrawal Benzodiazepine Follow-Up: Casimiro Lee PA-C [Primary Care Provider] - Prescriptions: Buspirone HCl 30 mg PO TID #30 tablet QUEtiapine [SEROquel] 400 mg PO QPM #40 tablet Discharge Date/Time: 05/17/19 13:22
[2019-05-17] MEDS ORDERED: busPIRone 5 MG TABLET PO STA (13:03)
[2019-05-17 13:13] VITALS: BP 126/85
== END 2019-05-17 13:22 | disposition home or self-care (01) ==
LOC: ED 10:28
DX: F19.231 Other psychoactive substance dependence with withdrawal delirium (principal); R06.82 Tachypnea, not elsewhere classified; F41.9 Anxiety disorder, unspecified; Z76.0 Encounter for issue of repeat prescription; R94.31 Abnormal electrocardiogram [ECG] [EKG]; F17.200 Nicotine dependence, unspecified, uncomplicated
CPT/HCPCS: 36415; 80053; 81003; 83690; 85025; 93005; 96374; 99284; A9270; J2060; 81001; 87086

== ENCOUNTER 2019-05-24 11:14 | Emergency (ER) | payer MEDICARE ==
[2019-05-24] MEDS ORDERED: SODIUM CHLORIDE 0.9% 1,000 ML IV ONE (12:44)
[2019-05-24] MEDS ORDERED: ONDANSETRON 4 MG/2 ML VIAL IVP STA (12:44)
[2019-05-24] MEDS ORDERED: LORazepam 2 MG/ML VIAL IVP STA ×2 (12:44→13:38)
--- NOTE | 2019-05-24 12:45 | ED Physician Documentation ---
History of Present Illness - Stated complaint Stated Complaint: SOA/SHAKES/CRAMPS - Chief complaint Chief Complaint: General - History obtained from History obtained from: Patient (59-year-old gentleman who since yesterday has had stomach and muscle cramps associated with restlessness and vomiting and diarrhea. It is similar to prior episodes of same, he did run out of his BuSpar, but that does not seem to be causative because the symptoms preceded him running out. In the past it was theorized that similar episodes were due to ongoing marijuana use but he says he has not used marijuana products in months. He denies other illicit drug use.) Review of Systems Constitutional: denies: Fever, Chills Nose: denies: Rhinorrhea / runny nose, Congestion Throat: denies: Sore throat Cardiac: denies: Chest pain / pressure, Palpitations PD PAST MEDICAL HISTORY - Past Medical History Cardiovascular: None Respiratory: None Neuro: Headaches Endocrine/Autoimmune: None GI: None : None HEENT: None Psych: Depression, Anxiety, Bipolar disorder Musculoskeletal: Osteoarthritis Derm: None - Past Surgical History Past Surgical History: Yes General: Appendectomy Ortho: Shoulder arthroplasty HEENT: Tonsil/Adenoidectomy - Present Medications Home Medications: Ambulatory Orders Medication Instructions Recorded Confirmed Bupropion HCl [Bupropion Xl] 300 mg PO DAILY 06/15/18 06/15/18 Gabapentin 800 mg PO TID 06/15/18 06/15/18 QUEtiapine [SEROquel] 400 mg PO ACHS 06/15/18 06/15/18 busPIRone [Buspar] 15 mg PO BID 06/15/18 06/15/18 Buspirone HCl 30 mg PO BID #14 tablet 12/06/18 Ondansetron Odt [Zofran Odt] 4 mg TL Q6H PRN #10 tablet 02/08/19 QUEtiapine [SEROquel] 400 mg PO QPM tablet 02/08/19 Dicyclomine [Bentyl] 10 mg PO ONCE PRN #10 capsule 02/22/19 Ondansetron Odt [Zofran] 4 mg TL Q6H PRN #10 tablet 02/22/19 Dicyclomine [Bentyl] 20 mg PO QID PRN #15 capsule 02/27/19 Ondansetron Odt [Zofran] 4 mg TL Q6H PRN #10 tablet 02/27/19 Quetiapine Fumarate [Seroquel] 400 mg PO DAILY #30 tablet 04/30/19 Buspirone HCl 30 mg PO DAILY #10 tablet 05/15/19 Diphenoxylate/Atropine [Lomotil] 1 each PO QID PRN #12 tablet 05/15/19 Famotidine 20 mg PO DAILY #30 tablet 05/15/19 Ondansetron Odt [Zofran] 4 mg TL Q6H PRN #20 tablet 05/15/19 Buspirone HCl 30 mg PO TID #30 tablet 05/17/19 QUEtiapine [SEROquel] 400 mg PO QPM #40 tablet 05/17/19 Lorazepam [Ativan] 1 mg PO TID PRN #3 tablet 05/24/19 - Allergies Allergies/Adverse Reactions: Allergies Allergy/AdvReac Type Severity Reaction Status Date / Time No Known Drug Allergies Allergy Verified 05/17/19 10:40 - Social History Does the pt smoke?: Yes Smoking Status: Current every day smoker Does the pt drink ETOH?: Yes Does the pt have substance abuse?: No - Immunizations Immunizations are current?: Yes - POLST Patient has POLST: No PD ED PE NORMAL - Vitals Vital signs reviewed: Yes - General General: Alert and oriented X 3, Other (He appears restless, uncomfortable but not in pain.) - HEENT HEENT: PERRL, Pharynx benign - Neck Neck: Supple, no meningeal sign, No bony TTP - Cardiac Cardiac: RRR, No murmur - Respiratory Respiratory: No respiratory distress, Clear bilaterally - Abdomen Abdomen: Non tender - Neuro Neuro: Alert and oriented X 3, Normal speech Results - Vitals Vitals: Vital Signs - 24 hr 05/24/19 05/24/19 05/24/19 11:26 12:01 13:36 Temperature 36.4 C L 36.2 C L Heart Rate 86 95 79 Respiratory 16 24 28 H Rate Blood Pressure 137/85 H 165/64 H 123/75 O2 Saturation 100 99 96 Oxygen O2 Source Room air - Labs Labs: Laboratory Tests 05/24/19 13:00 Sodium 134 L Potassium 4.2 Chloride 103 Carbon Dioxide 21 Anion Gap 10.0 BUN 11 Creatinine 0.9 Estimated GFR (MDRD) 87 L Glucose 96 Calcium 9.5 PD MEDICAL DECISION MAKING - ED course ED course: 59-year-old gentleman with history of depression and anxiety presents with panicky symptoms that he has had many times before looking at the chart. He ran out of his buspirone and is now shaky and anxious with vomiting. After divided doses of Ativan and a dose of his BuSpar here he was feeling much better. Departure - Departure Disposition: 01 Home, Self Care Clinical Impression: Depression with anxiety Condition: Good Record reviewed to determine appropriate education?: Yes Instructions: ED Panic Attack Prescriptions: Lorazepam [Ativan] 1 mg PO TID PRN #3 tablet PRN Reason: Anxiety Comments: Fill Your prescription for buspirone tomorrow as usual and talked with your prescriber about the side effects and issues you are having. Return for new or worsening symptoms.
[2019-05-24 13:19] LABS: CALCIUM 9.5 mg/dL (8.5-10.3); CREATININE 0.9 mg/dL (0.6-1.2)
[2019-05-24] MEDS ORDERED: busPIRone 5 MG TABLET PO STA (13:38)
[2019-05-24 13:41] VITALS: BP 123/75
== END 2019-05-24 14:28 | disposition home or self-care (01) ==
LOC: ED 11:14
DX: F32.9 Major depressive disorder, single episode, unspecified (principal); F41.9 Anxiety disorder, unspecified; R11.10 Vomiting, unspecified; F17.200 Nicotine dependence, unspecified, uncomplicated
CPT/HCPCS: 36415; 80048; 96361; 96374; 96375; 96376; 99283; A9270; J2060

== ENCOUNTER 2019-05-26 09:48 | Emergency (ER) | payer MEDICARE ==
[2019-05-26] MEDS ORDERED: ONDANSETRON 4 MG/2 ML VIAL IVP STA (11:21)
[2019-05-26] MEDS ORDERED: LORazepam 2 MG/ML VIAL IVP STA ×2 (11:21→12:29)
[2019-05-26] MEDS ORDERED: SODIUM CHLORIDE 0.9% 1,000 ML IV ONE (11:27)
--- NOTE | 2019-05-26 11:34 | ED Physician Documentation ---
PD HPI NVD - Stated complaint Stated Complaint: N/V - Chief complaint Chief Complaint: Abd Pain - History obtained from History obtained from: Patient (59-year-old male comes in today to the ER with chief complaints of nausea vomiting and diarrhea starting last night. The patient is a frequent flyer to this ER appearing numerous times for the same complaint over the past couple of weeks. He has had numerous work-ups which have been benign. He took was given an Rx for Ativan 1 mg #3 at his last visit two days ago, he used his last dosing last night. Since then the n/v has continued.), Family (spouse) Review of Systems Constitutional: reports: Fatigue. denies: Fever, Chills, Sweats Eyes: reports: Reviewed and negative Nose: reports: Reviewed and negative Throat: reports: Reviewed and negative Cardiac: reports: Reviewed and negative Respiratory: reports: Reviewed and negative GI: reports: Abdominal Pain, Nausea, Vomiting, Diarrhea. denies: Abdominal Swelling, Bloody / black stool : denies: Dysuria, Frequency, Hematuria Musculoskeletal: reports: Reviewed and negative PD PAST MEDICAL HISTORY - Past Medical History Past Medical History: Yes Cardiovascular: None Respiratory: None Neuro: Headaches Endocrine/Autoimmune: None GI: None : None HEENT: None Psych: Depression, Anxiety, Bipolar disorder Musculoskeletal: Osteoarthritis Derm: None - Past Surgical History Past Surgical History: Yes General: Appendectomy Ortho: Shoulder arthroplasty HEENT: Tonsil/Adenoidectomy - Present Medications Home Medications: Ambulatory Orders Medication Instructions Recorded Confirmed Bupropion HCl [Bupropion Xl] 300 mg PO DAILY 06/15/18 06/15/18 Gabapentin 800 mg PO TID 06/15/18 06/15/18 QUEtiapine [SEROquel] 400 mg PO ACHS 06/15/18 06/15/18 busPIRone [Buspar] 15 mg PO BID 06/15/18 06/15/18 Buspirone HCl 30 mg PO BID #14 tablet 12/06/18 Ondansetron Odt [Zofran Odt] 4 mg TL Q6H PRN #10 tablet 02/08/19 QUEtiapine [SEROquel] 400 mg PO QPM tablet 02/08/19 Dicyclomine [Bentyl] 10 mg PO ONCE PRN #10 capsule 02/22/19 Ondansetron Odt [Zofran] 4 mg TL Q6H PRN #10 tablet 02/22/19 Dicyclomine [Bentyl] 20 mg PO QID PRN #15 capsule 02/27/19 Ondansetron Odt [Zofran] 4 mg TL Q6H PRN #10 tablet 02/27/19 Quetiapine Fumarate [Seroquel] 400 mg PO DAILY #30 tablet 04/30/19 Buspirone HCl 30 mg PO DAILY #10 tablet 05/15/19 Diphenoxylate/Atropine [Lomotil] 1 each PO QID PRN #12 tablet 05/15/19 Famotidine 20 mg PO DAILY #30 tablet 05/15/19 Ondansetron Odt [Zofran] 4 mg TL Q6H PRN #20 tablet 05/15/19 Buspirone HCl 30 mg PO TID #30 tablet 05/17/19 QUEtiapine [SEROquel] 400 mg PO QPM #40 tablet 05/17/19 Lorazepam [Ativan] 1 mg PO TID PRN #3 tablet 05/24/19 LORazepam [Lorazepam] 0.5 mg PO TID PRN #12 tablet 05/26/19 - Allergies Allergies/Adverse Reactions: Allergies Allergy/AdvReac Type Severity Reaction Status Date / Time No Known Drug Allergies Allergy Verified 05/26/19 10:03 - Social History Does the pt smoke?: Yes Smoking Status: Current every day smoker Does the pt drink ETOH?: Yes Does the pt have substance abuse?: No - Immunizations Immunizations are current?: Yes - POLST Patient has POLST: No PD ED PE NORMAL - General General: Alert and oriented X 3 - HEENT HEENT: PERRL - Cardiac Cardiac: RRR, No murmur - Respiratory Respiratory: No respiratory distress, Clear bilaterally - Abdomen Abdomen: Normal bowel sounds, Soft, Non tender, No organomegaly Results - Vitals Vitals: Vital Signs - 24 hr 05/26/19 05/26/19 05/26/19 10:01 12:12 13:42 Temperature 36 C L Heart Rate 100 85 88 Respiratory 20 16 14 Rate Blood Pressure 132/82 H 125/83 H 119/88 H O2 Saturation 97 96 92 Oxygen O2 Source Room air - Labs Labs: Laboratory Tests 05/26/19 05/26/19 05/26/19 11:30 11:30 12:05 WBC 11.4 H RBC 4.83 Hgb 14.9 Hct 42.8 MCV 88.6 MCH 30.8 MCHC 34.8 RDW 13.8 Plt Count 351 MPV 10.3 Neut # (Auto) 8.8 H Lymph # (Auto) 1.5 [place] # (Auto) 0.9 Eos # (Auto) 0.1 Baso # (Auto) 0.1 Absolute Nucleated RBC 0.00 Nucleated RBC % 0.0 Sodium 135 Potassium 3.7 Chloride 105 Carbon Dioxide 19 L Anion Gap 11.0 BUN 12 Creatinine 1.1 Estimated GFR (MDRD) 69 L Glucose 110 H Calcium 9.6 Urine Color YELLOW Urine Clarity CLEAR Urine pH 7.5 Ur Specific [place] 1.020 Urine Protein NEGATIVE Urine Glucose (UA) NEGATIVE Urine Ketones NEGATIVE Urine Occult Blood NEGATIVE Urine Nitrite NEGATIVE Urine Bilirubin NEGATIVE Urine Urobilinogen 0.2 (NORMAL) Ur Leukocyte Esterase NEGATIVE Ur Microscopic Review NOT INDICATED Urine Culture Comments NOT INDICATED Urine Opiates Screen NEGATIVE Ur Oxycodone Screen NEGATIVE Urine Methadone Screen NEGATIVE Ur Propoxyphene Screen NEGATIVE Ur Barbiturates Screen NEGATIVE Ur Tricyclics Screen NEGATIVE Ur Phencyclidine Scrn NEGATIVE Ur Amphetamine Screen NEGATIVE U Methamphetamines Scrn NEGATIVE U Benzodiazepines Scrn POSITIVE H Urine Cocaine Screen NEGATIVE U Cannabinoids Screen POSITIVE H PD MEDICAL DECISION MAKING - ED course Complexity details: reviewed old records, reviewed results, re-evaluated patient (Improved with IV fluids, divided doses of Ativan, and Zofran.), considered differential, d/w patient, d/w family Departure - Departure Disposition: 01 Home, Self Care Clinical Impression: Nausea & vomiting Qualifiers: Vomiting type: unspecified Vomiting Intractability: non-intractable Qualified Code(s): R11.2 - Nausea with vomiting, unspecified Condition: Good Instructions: ED Nausea Vomiting Ch Prescriptions: LORazepam [Lorazepam] 0.5 mg PO TID PRN #12 tablet PRN Reason: Anxiety Comments: fill your prescription as we discussed. You can take the Lorazepam as directed. You may take a second dose of the Lorazepam 0.5 mg ONCE in one hour if your anxiety is not subsided. Do not take more than 6 tablets of lorazepam in 24 hours.You should take your anti nausea medication at the onset of nausea, repeat as directed on your prescription. Keep your appointment with your PCP next week. You may return for new or worsening symptoms. Discharge Date/Time: 05/26/19 13:42
[2019-05-26 11:45] LABS: BASOPHILS # (AUTO) 0.1 10^3/uL (0.0-0.1); BASOPHILS % (AUTO) 0.6 %; EOSINOPHILS # (AUTO) 0.1 10^3/uL (0.0-0.7); EOSINOPHILS % (AUTO) 0.6 %; HGB - HEMOGLOBIN 14.9 g/dL (14.0-18.0); LYMPHOCYTES # (AUTO) 1.5 10^3/uL (1.5-3.5); LYMPHOCYTES % (AUTO) 12.9 %; MEAN CORPUSCULAR HEMOGLOBIN 30.8 pg (27.0-31.0); MEAN CORPUSCULAR HGB CONC 34.8 g/dL (32.0-36.0); MEAN CORPUSCULAR VOLUME 88.6 fL (80.0-94.0); MEAN PLATELET VOLUME 10.3 fL (7.4-11.4); MONOCYTES # (AUTO) 0.9 10^3/uL (0.0-1.0); MONOCYTES % (AUTO) 7.7 %; NEUTROPHILS # (AUTO) 8.8 10^3/uL (1.5-6.6); NEUTROPHILS % (AUTO) 77.8 %; PLT - PLATELET COUNT 351 10^3/uL (130-450); RED BLOOD COUNT 4.83 10^6/uL (4.70-6.10); RED CELL DISTRIBUTION WIDTH 13.8 % (12.0-15.0); WHITE BLOOD COUNT 11.4 x10^3/uL (4.8-10.8)
[2019-05-26 11:49] LABS: CALCIUM 9.6 mg/dL (8.5-10.3); CREATININE 1.1 mg/dL (0.6-1.2)
[2019-05-26 12:14] LABS: MUDS CUTOFF CONCENTRATIONS CUTOFF CONC BELOW:
[2019-05-26 12:17] LABS: BILIRUBIN,URINE NEGATIVE (NEGATIVE); GLUCOSE, URINE (UA) NEGATIVE (NEGATIVE); KETONES,URINE (UA) NEGATIVE (NEGATIVE); LEUKOCYTE ESTERASE, URINE NEGATIVE (NEGATIVE); NITRITE,URINE NEGATIVE (NEGATIVE); OCCULT BLOOD,URINE NEGATIVE (NEGATIVE); PH,URINE 7.5 PH (5.0-7.5); PROTEIN,URINE NEGATIVE (NEGATIVE); UROBILINOGEN,URINE 0.2 (NORMAL) E.U./dL (NORMAL)
[2019-05-26 12:18] LABS: CLARITY,URINE CLEAR (CLEAR)
[2019-05-26 12:26] LABS: AMPHETAMINE SCREEN,URINE NEGATIVE (NEGATIVE); BENZODIAZEPINES SCREEN, URINE POSITIVE (NEGATIVE); COCAINE SCREEN URINE NEGATIVE (NEGATIVE); METHADONE SCREEN, URINE NEGATIVE (NEGATIVE); METHAMPHETAMINES SCREEN, URINE NEGATIVE (NEGATIVE); OPIATE SCREEN, URINE NEGATIVE (NEGATIVE); OXYCODONE SCREEN, URINE NEGATIVE (NEGATIVE); PROPOXYPHENE SCREEN, URINE NEGATIVE (NEGATIVE); TRICYCLIC ANTIDEPRESSANT,URINE NEGATIVE (NEGATIVE)
[2019-05-26 13:44] VITALS: BP 119/88
== END 2019-05-26 13:42 | disposition home or self-care (01) ==
LOC: ED 09:48
DX: R11.2 Nausea with vomiting, unspecified (principal); R19.7 Diarrhea, unspecified; F41.9 Anxiety disorder, unspecified; F17.200 Nicotine dependence, unspecified, uncomplicated
CPT/HCPCS: 36415; 80048; 81003; 85025; 96361; 96374; 96375; 96376; 99283; 99284; J2060; 80306; 81001; 87086

== ENCOUNTER 2019-05-28 12:43 | Emergency (ER) | payer MEDICARE, MEDICAID ==
[2019-05-28 13:31] LABS: BASOPHILS # (AUTO) 0.1 10^3/uL (0.0-0.1); BASOPHILS % (AUTO) 0.7 %; EOSINOPHILS % (AUTO) 0.4 %; HGB - HEMOGLOBIN 15.1 g/dL (14.0-18.0); LYMPHOCYTES # (AUTO) 1.6 10^3/uL (1.5-3.5); LYMPHOCYTES % (AUTO) 14.6 %; MEAN CORPUSCULAR HEMOGLOBIN 30.8 pg (27.0-31.0); MEAN CORPUSCULAR HGB CONC 34.8 g/dL (32.0-36.0); MEAN CORPUSCULAR VOLUME 88.4 fL (80.0-94.0); MONOCYTES % (AUTO) 8.7 %; NEUTROPHILS # (AUTO) 8.3 10^3/uL (1.5-6.6); NEUTROPHILS % (AUTO) 75.2 %; PLT - PLATELET COUNT 340 10^3/uL (130-450); RED BLOOD COUNT 4.91 10^6/uL (4.70-6.10); RED CELL DISTRIBUTION WIDTH 13.9 % (12.0-15.0)
[2019-05-28 13:43] LABS: ALBUMIN 4.5 g/dL (3.2-5.5); ALBUMIN/GLOBULIN RATIO 1.5 (1.0-2.2); BILIRUBIN,TOTAL 0.4 mg/dL (0.2-1.0); CALCIUM 9.7 mg/dL (8.5-10.3); CREATININE 1.1 mg/dL (0.6-1.2); TOTAL PROTEIN 7.6 g/dL (6.7-8.2)
[2019-05-28] MEDS ORDERED: SODIUM CHLORIDE 0.9% 1,000 ML IV ONE (14:41)
[2019-05-28] MEDS ORDERED: ONDANSETRON 4 MG/2 ML VIAL IVP STA (14:41)
[2019-05-28] MEDS ORDERED: busPIRone 5 MG TABLET PO STA (14:42)
--- NOTE | 2019-05-28 14:44 | ED Physician Documentation ---
History of Present Illness - Stated complaint Stated Complaint: SOA - Chief complaint Chief Complaint: Abd Pain - History obtained from History obtained from: Patient, Family - History of Present Illness Timing: How many weeks ago (1) Pain level max: 3 Pain level now: 2 - Additonal information Additional information: 59-year-old male states that he ran out of his buspirone recently. He states he has had nausea, vomiting, diarrhea since that time. No fevers. Feels that his anxiety has been increasing and he does feel mildly short of breath. States has not used marijuana for the past several days. Has been seen here x2. Improved with Zofran and Ativan. He states he does not know if he filled his last prescription for Ativan or not. He also states he does not know if he is taking it or not. Nothing makes it better or worse. He is supposed to see his doctor next week for a refill of his buspirone Review of Systems Ten Systems: 10 systems reviewed and negative Constitutional: denies: Fever, Chills Nose: denies: Rhinorrhea / runny nose, Congestion Cardiac: denies: Chest pain / pressure, Palpitations, Calf pain Respiratory: denies: Cough GI: reports: Nausea, Vomiting, Diarrhea. denies: Hematemesis, Bloody / black stool : denies: Dysuria Skin: denies: Rash Musculoskeletal: denies: Neck pain, Back pain Neurologic: denies: Headache PD PAST MEDICAL HISTORY - Past Medical History Cardiovascular: None Respiratory: None Neuro: Headaches Endocrine/Autoimmune: None GI: None : None HEENT: None Psych: Depression, Anxiety, Bipolar disorder Musculoskeletal: Osteoarthritis Derm: None - Past Surgical History Past Surgical History: Yes General: Appendectomy Ortho: Shoulder arthroplasty HEENT: Tonsil/Adenoidectomy - Present Medications Home Medications: Ambulatory Orders Medication Instructions Recorded Confirmed Bupropion HCl [Bupropion Xl] 300 mg PO DAILY 06/15/18 06/15/18 Gabapentin 800 mg PO TID 06/15/18 06/15/18 QUEtiapine [SEROquel] 400 mg PO ACHS 06/15/18 06/15/18 busPIRone [Buspar] 15 mg PO BID 06/15/18 06/15/18 Buspirone HCl 30 mg PO BID #14 tablet 12/06/18 Ondansetron Odt [Zofran Odt] 4 mg TL Q6H PRN #10 tablet 02/08/19 QUEtiapine [SEROquel] 400 mg PO QPM tablet 02/08/19 Dicyclomine [Bentyl] 10 mg PO ONCE PRN #10 capsule 02/22/19 Ondansetron Odt [Zofran] 4 mg TL Q6H PRN #10 tablet 02/22/19 Dicyclomine [Bentyl] 20 mg PO QID PRN #15 capsule 02/27/19 Ondansetron Odt [Zofran] 4 mg TL Q6H PRN #10 tablet 02/27/19 Quetiapine Fumarate [Seroquel] 400 mg PO DAILY #30 tablet 04/30/19 Buspirone HCl 30 mg PO DAILY #10 tablet 05/15/19 Diphenoxylate/Atropine [Lomotil] 1 each PO QID PRN #12 tablet 05/15/19 Famotidine 20 mg PO DAILY #30 tablet 05/15/19 Ondansetron Odt [Zofran] 4 mg TL Q6H PRN #20 tablet 05/15/19 Buspirone HCl 30 mg PO TID #30 tablet 05/17/19 QUEtiapine [SEROquel] 400 mg PO QPM #40 tablet 05/17/19 Lorazepam [Ativan] 1 mg PO TID PRN #3 tablet 05/24/19 LORazepam [Lorazepam] 0.5 mg PO TID PRN #12 tablet 05/26/19 Buspirone HCl 30 mg PO BID #30 tablet 05/28/19 Promethazine [Phenergan] 25 mg PO Q6H PRN #10 tab 05/28/19 - Allergies Allergies/Adverse Reactions: Allergies Allergy/AdvReac Type Severity Reaction Status Date / Time No Known Drug Allergies Allergy Verified 05/28/19 13:13 - Social History Does the pt smoke?: Yes Smoking Status: Current every day smoker Does the pt drink ETOH?: Yes Does the pt have substance abuse?: No - Immunizations Immunizations are current?: Yes - POLST Patient has POLST: No PD ED PE NORMAL - Vitals Vital signs reviewed: Yes - General General: Alert and oriented X 3, No acute distress, Well developed/nourished - HEENT HEENT: Moist mucous membranes - Neck Neck: Supple, no meningeal sign - Cardiac Cardiac: RRR, Strong equal pulses - Respiratory Respiratory: No respiratory distress, Clear bilaterally - Abdomen Abdomen: Soft, Non tender, Non distended - Derm Derm: Warm and dry, No rash - Extremities Extremities: No edema - Neuro Neuro: Alert and oriented X 3 - Psych Psych: Other (Appears anxious) Results - Vitals Vitals: Vital Signs - 24 hr 05/28/19 05/28/19 05/28/19 13:07 14:44 16:53 Temperature 36.8 C 36.6 C Heart Rate 103 H 100 100 Respiratory 17 18 16 Rate Blood Pressure 107/74 102/79 101/70 O2 Saturation 98 97 94 Oxygen O2 Source Room air - Labs Labs: Laboratory Tests 05/28/19 05/28/19 13:24 13:24 WBC 11.0 H RBC 4.91 Hgb 15.1 Hct 43.4 MCV 88.4 MCH 30.8 MCHC 34.8 RDW 13.9 Plt Count 340 MPV 9.0 Neut # (Auto) 8.3 H Lymph # (Auto) 1.6 [place] # (Auto) 1.0 Eos # (Auto) 0.0 Baso # (Auto) 0.1 Absolute Nucleated RBC 0.00 Nucleated RBC % 0.0 Sodium 132 L Potassium 3.9 Chloride 102 Carbon Dioxide 20 L Anion Gap 10.0 BUN 21 H Creatinine 1.1 Estimated GFR (MDRD) 69 L Glucose 107 H Calcium 9.7 Total Bilirubin 0.4 AST 20 ALT 19 Alkaline Phosphatase 57 Total Protein 7.6 Albumin 4.5 Globulin 3.1 Albumin/Globulin Ratio 1.5 Lipase 40 PD MEDICAL DECISION MAKING - ED course Complexity details: reviewed results, re-evaluated patient, considered differential, d/w patient, d/w family ED course: 59-year-old male out of his buspirone. He has had vomiting and diarrhea since running out. Given his usual dose here. Improved with Zofran and Phenergan. Tolerating p.o. without difficulty. Will prescribe Phenergan for home and refill his buspirone. Patient is well-appearing, nontoxic. Afebrile. Abdomen is soft, nontender nondistended on serial exam. Patient and family counseled regarding signs and symptoms for which I believe and urgent re-evaluation would be necessary. Patient with good understanding of and agreement to plan and is comfortable going home at this time This document was made in part using voice recognition software. While efforts are made to proofread this document, sound alike and grammatical errors may occur. Departure - Departure Disposition: 01 Home, Self Care Clinical Impression: Nausea vomiting and diarrhea, Medication refill Condition: Good Instructions: ED Gastroenteritis Vs Food Poison Follow-Up: Casimiro Lee PA-C [Primary Care Provider] - Within 1 week Prescriptions: Buspirone HCl 30 mg PO BID #30 tablet Promethazine [Phenergan] 25 mg PO Q6H PRN #10 tab PRN Reason: Nausea / Vomiting Comments: Use the medication as prescribed. Return if you worsen. Follow-up with your doctor for further care. Discharge Date/Time: 05/28/19 17:44
[2019-05-28] MEDS ORDERED: PROMETHAZINE INJ 25 MG in SODIUM CHLORIDE 0.9% 50 ML IV STA (16:11)
[2019-05-28 16:54] VITALS: BP 101/70
== END 2019-05-28 17:44 | disposition home or self-care (01) ==
LOC: ED 12:43
DX: R11.2 Nausea with vomiting, unspecified (principal); R19.7 Diarrhea, unspecified; Z76.0 Encounter for issue of repeat prescription; F41.9 Anxiety disorder, unspecified; F17.200 Nicotine dependence, unspecified, uncomplicated
CPT/HCPCS: 36415; 80053; 83690; 85025; 96361; 96365; 96375; 99284; A9270; J7040

== ENCOUNTER 2019-08-21 13:51 | Emergency (ER) | payer MEDICARE, MEDICAID ==
[2019-08-21] MEDS ORDERED: SODIUM CHLORIDE 0.9% 1,000 ML IV STA (14:08)
[2019-08-21] MEDS ORDERED: HALOPERIDOL 5 MG/ML VIAL IVP ONE (14:08)
--- NOTE | 2019-08-21 14:10 | ED Physician Documentation ---
PD HPI ABD PAIN - Stated complaint Stated Complaint: ABD PX - Chief complaint Chief Complaint: Abd Pain - History obtained from History obtained from: Patient - History of Present Illness Timing - onset: Other (59-year-old gentleman with chronic intermittent abdominal pain presents with an exacerbation of same starting over the last 2 days with vomiting, sharp left upper quadrant pain.Note made that he has a visit at least once and sometimes several times a month for this. I discussed with him that marijuana may be causative especially noting that he finds relief with hot showers. He says that he is never considered this which is in contrast to him having been told that marijuana was the cause of this several times. He continues to use but vacillates on how often, says the last use was "days" ago) Review of Systems Ten Systems: 10 systems reviewed and negative Constitutional: reports: Sweats. denies: Fever, Chills GI: reports: Abdominal Pain, Nausea, Vomiting, Diarrhea. denies: Constipation, Hematemesis, Bloody / black stool PD PAST MEDICAL HISTORY - Past Medical History Cardiovascular: None Respiratory: None Neuro: Headaches Endocrine/Autoimmune: None GI: None : None HEENT: None Psych: Depression, Anxiety, Bipolar disorder Musculoskeletal: Osteoarthritis Derm: None - Past Surgical History Past Surgical History: Yes General: Appendectomy Ortho: Shoulder arthroplasty HEENT: Tonsil/Adenoidectomy - Present Medications Home Medications: Ambulatory Orders Medication Instructions Recorded Confirmed Bupropion HCl [Bupropion Xl] 300 mg PO DAILY 06/15/18 06/15/18 Gabapentin 800 mg PO TID 06/15/18 06/15/18 QUEtiapine [SEROquel] 400 mg PO ACHS 06/15/18 06/15/18 busPIRone [Buspar] 15 mg PO BID 06/15/18 06/15/18 Buspirone HCl 30 mg PO BID #14 tablet 12/06/18 Ondansetron Odt [Zofran Odt] 4 mg TL Q6H PRN #10 tablet 02/08/19 QUEtiapine [SEROquel] 400 mg PO QPM tablet 02/08/19 Dicyclomine [Bentyl] 10 mg PO ONCE PRN #10 capsule 02/22/19 Ondansetron Odt [Zofran] 4 mg TL Q6H PRN #10 tablet 02/22/19 Dicyclomine [Bentyl] 20 mg PO QID PRN #15 capsule 02/27/19 Ondansetron Odt [Zofran] 4 mg TL Q6H PRN #10 tablet 02/27/19 Quetiapine Fumarate [Seroquel] 400 mg PO DAILY #30 tablet 04/30/19 Buspirone HCl 30 mg PO DAILY #10 tablet 05/15/19 Diphenoxylate/Atropine [Lomotil] 1 each PO QID PRN #12 tablet 05/15/19 Famotidine 20 mg PO DAILY #30 tablet 05/15/19 Ondansetron Odt [Zofran] 4 mg TL Q6H PRN #20 tablet 05/15/19 Buspirone HCl 30 mg PO TID #30 tablet 05/17/19 QUEtiapine [SEROquel] 400 mg PO QPM #40 tablet 05/17/19 Lorazepam [Ativan] 1 mg PO TID PRN #3 tablet 05/24/19 LORazepam [Lorazepam] 0.5 mg PO TID PRN #12 tablet 05/26/19 Buspirone HCl 30 mg PO BID #30 tablet 05/28/19 Promethazine [Phenergan] 25 mg PO Q6H PRN #10 tab 05/28/19 Buspirone HCl 30 mg PO BID #14 tablet 08/21/19 Ondansetron Odt [Zofran] 4 mg TL Q6H PRN #10 tablet 08/21/19 - Allergies Allergies/Adverse Reactions: Allergies Allergy/AdvReac Type Severity Reaction Status Date / Time No Known Drug Allergies Allergy Verified 08/21/19 13:59 - Social History Does the pt smoke?: Yes Smoking Status: Current every day smoker Does the pt drink ETOH?: Yes Does the pt have substance abuse?: No - Immunizations Immunizations are current?: Yes - POLST Patient has POLST: No PD ED PE NORMAL - Vitals Vital signs reviewed: Yes - General General: Alert and oriented X 3, No acute distress - Respiratory Respiratory: No respiratory distress, Clear bilaterally - Abdomen Abdomen: Normal bowel sounds, Soft, Non tender - Derm Derm: No rash - Neuro Neuro: Alert and oriented X 3, Normal speech Results - Vitals Vitals: Vital Signs - 24 hr 08/21/19 08/21/19 13:56 16:20 Temperature 36.6 C 37 C Heart Rate 93 72 Respiratory 16 16 Rate Blood Pressure 122/78 105/73 O2 Saturation 96 97 Oxygen O2 Source Room air - Labs Labs: Laboratory Tests 08/21/19 08/21/19 14:16 15:20 Sodium 137 Potassium 4.2 Chloride 105 Carbon Dioxide 22 Anion Gap 10.0 BUN 13 Creatinine 0.9 Estimated GFR (MDRD) 87 L Glucose 99 Calcium 9.6 Total Bilirubin 0.4 AST 14 ALT 12 Alkaline Phosphatase 60 Total Protein 6.6 L Albumin 3.9 Globulin 2.7 Albumin/Globulin Ratio 1.4 Lipase 50 Urine Color DARK YELLOW Urine Clarity CLEAR Urine pH 6.0 Ur Specific [place] >=1.030 H Urine Protein NEGATIVE Urine Glucose (UA) NEGATIVE Urine Ketones NEGATIVE Urine Occult Blood NEGATIVE Urine Nitrite NEGATIVE Urine Bilirubin NEGATIVE Urine Urobilinogen 0.2 (NORMAL) Ur Leukocyte Esterase NEGATIVE Ur Microscopic Review NOT INDICATED Urine Culture Comments NOT INDICATED Urine Opiates Screen NEGATIVE Ur Oxycodone Screen NEGATIVE Urine Methadone Screen NEGATIVE Ur Propoxyphene Screen NEGATIVE Ur Barbiturates Screen NEGATIVE Ur Tricyclics Screen POSITIVE H Ur Phencyclidine Scrn NEGATIVE Ur Amphetamine Screen NEGATIVE U Methamphetamines Scrn NEGATIVE U Benzodiazepines Scrn NEGATIVE Urine Cocaine Screen NEGATIVE U Cannabinoids Screen POSITIVE H PD MEDICAL DECISION MAKING - ED course ED course: 59-year-old gentleman with cannabinoid hyperemesis, benign examination. No evidence of renal dysfunction or electrolyte imbalance. He improved with divided doses of medications and IV fluids and passed an oral challenge. He also needed a refill of his BuSpar. Departure - Departure Disposition: 01 Home, Self Care Clinical Impression: Cannabinoid hyperemesis syndrome Condition: Good Record reviewed to determine appropriate education?: Yes Instructions: ED Marijuana Abuse, ED Nausea Vomiting Prescriptions: Buspirone HCl 30 mg PO BID #14 tablet Ondansetron Odt [Zofran] 4 mg TL Q6H PRN #10 tablet PRN Reason: Nausea / Vomiting Comments: Your symptoms today are from the ongoing chronic use of marijuana. If you want the symptoms to stop, you have to stop using marijuana. There is really no way around this. Return if worse. Follow-up with your primary care physician.
[2019-08-21 14:34] LABS: ALBUMIN 3.9 g/dL (3.2-5.5); ALBUMIN/GLOBULIN RATIO 1.4 (1.0-2.2); BILIRUBIN,TOTAL 0.4 mg/dL (0.2-1.0); CALCIUM 9.6 mg/dL (8.5-10.3); CREATININE 0.9 mg/dL (0.6-1.2); TOTAL PROTEIN 6.6 g/dL (6.7-8.2)
[2019-08-21] MEDS ORDERED: ONDANSETRON 4 MG/2 ML VIAL IVP STA (15:09)
[2019-08-21] MEDS ORDERED: LORazepam 2 MG/ML VIAL IVP STA (15:09)
[2019-08-21] MEDS ORDERED: KETOROLAC 30 MG/ML VIAL IVP STA (15:09)
[2019-08-21 15:27] LABS: MUDS CUTOFF CONCENTRATIONS CUTOFF CONC BELOW:
[2019-08-21 15:33] LABS: BILIRUBIN,URINE NEGATIVE (NEGATIVE); GLUCOSE, URINE (UA) NEGATIVE (NEGATIVE); KETONES,URINE (UA) NEGATIVE (NEGATIVE); LEUKOCYTE ESTERASE, URINE NEGATIVE (NEGATIVE); NITRITE,URINE NEGATIVE (NEGATIVE); OCCULT BLOOD,URINE NEGATIVE (NEGATIVE); PROTEIN,URINE NEGATIVE (NEGATIVE); UROBILINOGEN,URINE 0.2 (NORMAL) E.U./dL (NORMAL)
[2019-08-21 15:37] LABS: CLARITY,URINE CLEAR (CLEAR)
[2019-08-21] MEDS ORDERED: MAG HYDROX/AL HYDROX/SIMETH 30 ML UDC PO STA (15:49)
[2019-08-21] MEDS ORDERED: LIDOCAINE VISCOUS 2% 15 ML UDC MM STA (15:49)
[2019-08-21 15:53] LABS: AMPHETAMINE SCREEN,URINE NEGATIVE (NEGATIVE); BENZODIAZEPINES SCREEN, URINE NEGATIVE (NEGATIVE); COCAINE SCREEN URINE NEGATIVE (NEGATIVE); METHADONE SCREEN, URINE NEGATIVE (NEGATIVE); METHAMPHETAMINES SCREEN, URINE NEGATIVE (NEGATIVE); OPIATE SCREEN, URINE NEGATIVE (NEGATIVE); OXYCODONE SCREEN, URINE NEGATIVE (NEGATIVE); PROPOXYPHENE SCREEN, URINE NEGATIVE (NEGATIVE); TRICYCLIC ANTIDEPRESSANT,URINE POSITIVE (NEGATIVE)
[2019-08-21 17:16] VITALS: BP 107/75
== END 2019-08-21 17:17 | disposition home or self-care (01) ==
LOC: ED 13:51
DX: R10.12 Left upper quadrant pain (principal); R11.2 Nausea with vomiting, unspecified; R19.7 Diarrhea, unspecified; F17.200 Nicotine dependence, unspecified, uncomplicated
CPT/HCPCS: 36415; 80053; 80306; 81003; 83690; 96361; 96374; 96375; 99284; 99285; A9270; J2060; 81001; 87086

== ENCOUNTER 2019-09-16 09:13 | Emergency (ER) | payer MEDICARE, MEDICAID ==
[2019-09-16] MEDS ORDERED: FOLIC ACID INJ 1 MG, THIAMINE INJ 100 MG, MAGNESIUM SULFATE 2 GM, MULTIVITAMIN 10 ML in... IV STA ×5 (10:47)
[2019-09-16] MEDS ORDERED: LORazepam 2 MG/ML VIAL IVP STA ×2 (10:48→11:29)
[2019-09-16 11:10] LABS: BASOPHILS # (AUTO) 0.1 10^3/uL (0.0-0.1); BASOPHILS % (AUTO) 0.8 %; EOSINOPHILS # (AUTO) 0.2 10^3/uL (0.0-0.7); EOSINOPHILS % (AUTO) 2.6 %; HGB - HEMOGLOBIN 13.8 g/dL (14.0-18.0); LYMPHOCYTES % (AUTO) 21.7 %; MEAN CORPUSCULAR HEMOGLOBIN 31.4 pg (27.0-31.0); MEAN CORPUSCULAR HGB CONC 33.5 g/dL (32.0-36.0); MEAN CORPUSCULAR VOLUME 93.6 fL (80.0-94.0); MEAN PLATELET VOLUME 9.5 fL (7.4-11.4); MONOCYTES # (AUTO) 0.8 10^3/uL (0.0-1.0); MONOCYTES % (AUTO) 8.3 %; NEUTROPHILS # (AUTO) 6.1 10^3/uL (1.5-6.6); NEUTROPHILS % (AUTO) 66.1 %; PLT - PLATELET COUNT 252 10^3/uL (130-450); WHITE BLOOD COUNT 9.2 x10^3/uL (4.8-10.8)
[2019-09-16 11:20] LABS: ALBUMIN 4.1 g/dL (3.2-5.5); ALBUMIN/GLOBULIN RATIO 1.6 (1.0-2.2); BILIRUBIN,TOTAL 0.3 mg/dL (0.2-1.0); CALCIUM 9.4 mg/dL (8.5-10.3); CREATININE 1.1 mg/dL (0.6-1.2); MAGNESIUM 2.3 mg/dL (1.7-2.8); TOTAL PROTEIN 6.7 g/dL (6.7-8.2)
[2019-09-16] MEDS ORDERED: LORazepam 1 MG TABLET PO STA (13:01)
--- NOTE | 2019-09-16 13:02 | ED Physician Documentation ---
History of Present Illness - Stated complaint Stated Complaint: SHAKES - Chief complaint Chief Complaint: General - History obtained from History obtained from: Patient, Family - History of Present Illness Timing: Today - Additonal information Additional information: 59-year-old male who is on a number of medications and occluding 30 mg of BuSpar twice per day. He ran out of his medicines 3 days ago and he got refills today he has taken his dose of BuSpar this morning and despite this he is having twitching of his extremities that is uncontrolled. He feels that he is never had this happen to him previously. Review of his chart reveals he has had benzodiazepine withdrawal with similar presentation and rescue with Ativan was successful. Review of Systems Constitutional: denies: Fever Eyes: denies: Decreased vision Ears: denies: Ear pain Nose: denies: Congestion Throat: denies: Sore throat Cardiac: denies: Chest pain / pressure Respiratory: denies: Dyspnea, Cough GI: denies: Vomiting PD PAST MEDICAL HISTORY - Past Medical History Cardiovascular: None Respiratory: None Neuro: Headaches Endocrine/Autoimmune: None GI: None : None HEENT: None Psych: Depression, Anxiety, Bipolar disorder Musculoskeletal: Osteoarthritis Derm: None - Past Surgical History Past Surgical History: Yes General: Appendectomy Ortho: Shoulder arthroplasty HEENT: Tonsil/Adenoidectomy - Present Medications Home Medications: Ambulatory Orders Medication Instructions Recorded Confirmed Bupropion HCl [Bupropion Xl] 300 mg PO DAILY 06/15/18 06/15/18 Gabapentin 800 mg PO TID 06/15/18 06/15/18 QUEtiapine [SEROquel] 400 mg PO ACHS 06/15/18 06/15/18 busPIRone [Buspar] 15 mg PO BID 06/15/18 06/15/18 Buspirone HCl 30 mg PO BID #14 tablet 12/06/18 Ondansetron Odt [Zofran Odt] 4 mg TL Q6H PRN #10 tablet 02/08/19 QUEtiapine [SEROquel] 400 mg PO QPM tablet 02/08/19 Dicyclomine [Bentyl] 10 mg PO ONCE PRN #10 capsule 02/22/19 Ondansetron Odt [Zofran] 4 mg TL Q6H PRN #10 tablet 02/22/19 Dicyclomine [Bentyl] 20 mg PO QID PRN #15 capsule 02/27/19 Ondansetron Odt [Zofran] 4 mg TL Q6H PRN #10 tablet 02/27/19 Quetiapine Fumarate [Seroquel] 400 mg PO DAILY #30 tablet 04/30/19 Buspirone HCl 30 mg PO DAILY #10 tablet 05/15/19 Diphenoxylate/Atropine [Lomotil] 1 each PO QID PRN #12 tablet 05/15/19 Famotidine 20 mg PO DAILY #30 tablet 05/15/19 Ondansetron Odt [Zofran] 4 mg TL Q6H PRN #20 tablet 05/15/19 Buspirone HCl 30 mg PO TID #30 tablet 05/17/19 QUEtiapine [SEROquel] 400 mg PO QPM #40 tablet 05/17/19 Lorazepam [Ativan] 1 mg PO TID PRN #3 tablet 05/24/19 LORazepam [Lorazepam] 0.5 mg PO TID PRN #12 tablet 05/26/19 Buspirone HCl 30 mg PO BID #30 tablet 05/28/19 Promethazine [Phenergan] 25 mg PO Q6H PRN #10 tab 05/28/19 Buspirone HCl 30 mg PO BID #14 tablet 08/21/19 Ondansetron Odt [Zofran] 4 mg TL Q6H PRN #10 tablet 08/21/19 - Allergies Allergies/Adverse Reactions: Allergies Allergy/AdvReac Type Severity Reaction Status Date / Time meloxicam Allergy Respiratory Verified 09/16/19 09:21 - Social History Does the pt smoke?: Yes Smoking Status: Current every day smoker Does the pt drink ETOH?: Yes Does the pt have substance abuse?: No - Immunizations Immunizations are current?: Yes - POLST Patient has POLST: No PD ED PE NORMAL - Vitals Vital signs reviewed: Yes (Tachycardic) - General General: Alert and oriented X 3, Well developed/nourished, Other (59-year-old male who appears anxious has uncontrolled twitching of the upper and lower extremities periodically.) - HEENT HEENT: Atraumatic, PERRL, EOMI - Neck Neck: Supple, no meningeal sign, No bony TTP - Cardiac Cardiac: No murmur, Other (Tachycardia to 100) - Respiratory Respiratory: No respiratory distress, Clear bilaterally - Abdomen Abdomen: Soft, Non tender - Back Back: No CVA TTP, No spinal TTP - Derm Derm: Normal color, Warm and dry, No rash - Extremities Extremities: No deformity, Normal ROM s pain, No calf tenderness / cord - Neuro Neuro: Alert and oriented X 3, maintenance associate 2-12 intact, No motor deficit, No sensory deficit, Normal speech Eye Opening: Spontaneous Motor: Obeys Commands Verbal: Oriented GCS Score: 15 - Psych Psych: Normal mood, Normal affect Results - Vitals Vitals: Vital Signs - 24 hr 09/16/19 09/16/19 09:17 11:21 Temperature 36.2 C L Heart Rate 107 H 97 Respiratory 20 28 H Rate Blood Pressure 118/72 110/79 O2 Saturation 97 97 Oxygen O2 Source Room air - Labs Labs: Laboratory Tests 09/16/19 09/16/19 10:57 10:57 WBC 9.2 RBC 4.40 L Hgb 13.8 L Hct 41.2 L MCV 93.6 MCH 31.4 H MCHC 33.5 RDW 14.0 Plt Count 252 MPV 9.5 Neut # (Auto) 6.1 Lymph # (Auto) 2.0 [place] # (Auto) 0.8 Eos # (Auto) 0.2 Baso # (Auto) 0.1 Absolute Nucleated RBC 0.00 Nucleated RBC % 0.0 Sodium 138 Potassium 4.0 Chloride 104 Carbon Dioxide 23 Anion Gap 11.0 BUN 13 Creatinine 1.1 Estimated GFR (MDRD) 69 L Glucose 109 H Calcium 9.4 Magnesium 2.3 Total Bilirubin 0.3 AST 29 ALT 41 Alkaline Phosphatase 61 Total Protein 6.7 Albumin 4.1 Globulin 2.6 Albumin/Globulin Ratio 1.6 Lipase 27 PD MEDICAL DECISION MAKING - ED course Complexity details: reviewed results, re-evaluated patient, considered differential, d/w patient, d/w family ED course: 59-year-old male with twitching of his extremities 3 days after discontinuing his BuSpar likely has a benzodiazepine withdrawal syndrome. He is administered a banana bag intravenously and a milligram of Ativan. This helps somewhat and the twitches are resolved with a second milligram of Ativan. Is given a milligram of Ativan orally and he will continue on his BuSpar getting a second dose this evening. Departure - Departure Disposition: , Self Care Clinical Impression: Benzodiazepine withdrawal with delirium Condition: Stable Instructions: ED Withdrawal Benzodiazepine Follow-Up: ALAN GAMING MD [Primary Care Provider] - Comments: Today this appears to be twitching related to withdrawal of your BuSpar. Take your BuSpar regularly. Expect the twitching to be resolved.
[2019-09-16 13:13] VITALS: BP 121/81
== END 2019-09-16 13:13 | disposition home or self-care (01) ==
LOC: ED 09:13
DX: F13.239 Sedative, hypnotic or anxiolytic dependence with withdrawal, unspecified (principal); F17.200 Nicotine dependence, unspecified, uncomplicated
CPT/HCPCS: 36415; 80053; 83690; 83735; 85025; 96365; 96375; 96376; 99284; J2060; J3411; J8499

== ENCOUNTER 2019-09-27 16:31 | Emergency (ER) | payer MEDICARE, MEDICAID ==
[2019-09-27 17:07] LABS: BASOPHILS # (AUTO) 0.1 10^3/uL (0.0-0.1); BASOPHILS % (AUTO) 0.9 %; EOSINOPHILS # (AUTO) 0.1 10^3/uL (0.0-0.7); EOSINOPHILS % (AUTO) 0.9 %; HGB - HEMOGLOBIN 14.4 g/dL (14.0-18.0); LYMPHOCYTES # (AUTO) 1.8 10^3/uL (1.5-3.5); LYMPHOCYTES % (AUTO) 19.6 %; MEAN CORPUSCULAR HEMOGLOBIN 31.2 pg (27.0-31.0); MEAN CORPUSCULAR HGB CONC 33.9 g/dL (32.0-36.0); MEAN PLATELET VOLUME 9.4 fL (7.4-11.4); MONOCYTES # (AUTO) 0.7 10^3/uL (0.0-1.0); NEUTROPHILS # (AUTO) 6.6 10^3/uL (1.5-6.6); NEUTROPHILS % (AUTO) 71.2 %; PLT - PLATELET COUNT 302 10^3/uL (130-450); RED BLOOD COUNT 4.62 10^6/uL (4.70-6.10); RED CELL DISTRIBUTION WIDTH 13.7 % (12.0-15.0); WHITE BLOOD COUNT 9.3 x10^3/uL (4.8-10.8)
[2019-09-27 17:19] LABS: ALBUMIN 4.6 g/dL (3.2-5.5); ALBUMIN/GLOBULIN RATIO 1.5 (1.0-2.2); BILIRUBIN,TOTAL 0.5 mg/dL (0.2-1.0); CALCIUM 9.2 mg/dL (8.5-10.3); CREATININE 0.9 mg/dL (0.6-1.2); TOTAL PROTEIN 7.6 g/dL (6.7-8.2)
[2019-09-27 18:35] LABS: BILIRUBIN,URINE NEGATIVE (NEGATIVE); GLUCOSE, URINE (UA) NEGATIVE (NEGATIVE); KETONES,URINE (UA) NEGATIVE (NEGATIVE); LEUKOCYTE ESTERASE, URINE NEGATIVE (NEGATIVE); NITRITE,URINE NEGATIVE (NEGATIVE); OCCULT BLOOD,URINE TRACE-LYSE (NEGATIVE); PROTEIN,URINE NEGATIVE (NEGATIVE); UROBILINOGEN,URINE 0.2 (NORMAL) E.U./dL (NORMAL)
[2019-09-27 18:37] LABS: CLARITY,URINE CLEAR (CLEAR)
[2019-09-27 19:20] LABS: MUDS CUTOFF CONCENTRATIONS CUTOFF CONC BELOW:
[2019-09-27] MEDS ORDERED: PROMETHAZINE INJ 25 MG in SODIUM CHLORIDE 0.9% 50 ML IV STA (19:23)
[2019-09-27] MEDS ORDERED: ONDANSETRON 4 MG/2 ML VIAL IVP STA (19:23)
[2019-09-27] MEDS ORDERED: SODIUM CHLORIDE 0.9% 1,000 ML IV STA (19:23)
[2019-09-27 19:30] LABS: AMPHETAMINE SCREEN,URINE NEGATIVE (NEGATIVE); COCAINE SCREEN URINE NEGATIVE (NEGATIVE); METHAMPHETAMINES SCREEN, URINE NEGATIVE (NEGATIVE); OPIATE SCREEN, URINE NEGATIVE (NEGATIVE)
[2019-09-27 19:31] LABS: BENZODIAZEPINES SCREEN, URINE NEGATIVE (NEGATIVE); METHADONE SCREEN, URINE NEGATIVE (NEGATIVE); OXYCODONE SCREEN, URINE NEGATIVE (NEGATIVE); PROPOXYPHENE SCREEN, URINE NEGATIVE (NEGATIVE); TRICYCLIC ANTIDEPRESSANT,URINE POSITIVE (NEGATIVE)
[2019-09-27] MEDS ORDERED: IOVERSOL 320 100 ML VIAL IVP ONE ×2 (19:37→20:30)
--- NOTE | 2019-09-27 20:04 | ED Physician Documentation ---
PD HPI NVD - Stated complaint Stated Complaint: N/V, UNABLE TO SWALLOW - Chief complaint Chief Complaint: Abd Pain - History obtained from History obtained from: Patient, Family - History of Present Illness Timing - onset: Today Timing - duration: Days (1) Timing - details: Abrupt onset Pain level max: 0 Pain level now: 0 Associated symptoms: Other (vomiting) Contributing factors: Other (denies marijuana use). No: Sick contact, Bad food, Travel, Recent antibiotics, Alcohol use, Anticoagulated, Diabetes Improved by: Vomiting Worsened by: Eating Recently seen: Not recently seen Review of Systems Ten Systems: 10 systems reviewed and negative Constitutional: denies: Fever, Chills Throat: denies: Sore throat Cardiac: denies: Chest pain / pressure Respiratory: denies: Cough GI: reports: Nausea, Vomiting. denies: Abdominal Swelling, Hematemesis, Bloody / black stool Skin: denies: Rash Musculoskeletal: denies: Neck pain, Back pain Neurologic: denies: Headache PD PAST MEDICAL HISTORY - Past Medical History Past Medical History: Yes Cardiovascular: None Respiratory: None Neuro: Headaches Endocrine/Autoimmune: None GI: None : None HEENT: None Psych: Depression, Anxiety, Bipolar disorder Musculoskeletal: Osteoarthritis Derm: None - Past Surgical History Past Surgical History: Yes General: Appendectomy Ortho: Shoulder arthroplasty HEENT: Tonsil/Adenoidectomy - Present Medications Home Medications: Ambulatory Orders Medication Instructions Recorded Confirmed Bupropion HCl [Bupropion Xl] 300 mg PO DAILY 06/15/18 06/15/18 Gabapentin 800 mg PO TID 06/15/18 06/15/18 QUEtiapine [SEROquel] 400 mg PO ACHS 06/15/18 06/15/18 busPIRone [Buspar] 15 mg PO BID 06/15/18 06/15/18 Buspirone HCl 30 mg PO BID #14 tablet 12/06/18 Ondansetron Odt [Zofran Odt] 4 mg TL Q6H PRN #10 tablet 02/08/19 QUEtiapine [SEROquel] 400 mg PO QPM tablet 02/08/19 Dicyclomine [Bentyl] 10 mg PO ONCE PRN #10 capsule 02/22/19 Ondansetron Odt [Zofran] 4 mg TL Q6H PRN #10 tablet 02/22/19 Dicyclomine [Bentyl] 20 mg PO QID PRN #15 capsule 02/27/19 Ondansetron Odt [Zofran] 4 mg TL Q6H PRN #10 tablet 02/27/19 Quetiapine Fumarate [Seroquel] 400 mg PO DAILY #30 tablet 04/30/19 Buspirone HCl 30 mg PO DAILY #10 tablet 05/15/19 Diphenoxylate/Atropine [Lomotil] 1 each PO QID PRN #12 tablet 05/15/19 Famotidine 20 mg PO DAILY #30 tablet 05/15/19 Ondansetron Odt [Zofran] 4 mg TL Q6H PRN #20 tablet 05/15/19 Buspirone HCl 30 mg PO TID #30 tablet 05/17/19 QUEtiapine [SEROquel] 400 mg PO QPM #40 tablet 05/17/19 Lorazepam [Ativan] 1 mg PO TID PRN #3 tablet 05/24/19 LORazepam [Lorazepam] 0.5 mg PO TID PRN #12 tablet 05/26/19 Buspirone HCl 30 mg PO BID #30 tablet 05/28/19 Promethazine [Phenergan] 25 mg PO Q6H PRN #10 tab 05/28/19 Buspirone HCl 30 mg PO BID #14 tablet 08/21/19 Ondansetron Odt [Zofran] 4 mg TL Q6H PRN #10 tablet 08/21/19 - Allergies Allergies/Adverse Reactions: Allergies Allergy/AdvReac Type Severity Reaction Status Date / Time meloxicam Allergy Respiratory Verified 09/27/19 16:42 - Social History Does the pt smoke?: Yes Smoking Status: Current every day smoker Does the pt drink ETOH?: No Does the pt have substance abuse?: No - Immunizations Immunizations are current?: Yes - POLST Patient has POLST: No PD ED PE NORMAL - Vitals Vital signs reviewed: Yes - General General: Alert and oriented X 3, No acute distress - HEENT HEENT: PERRL, Moist mucous membranes, Pharynx benign - Neck Neck: Supple, no meningeal sign - Cardiac Cardiac: RRR, Strong equal pulses - Respiratory Respiratory: No respiratory distress, Clear bilaterally - Abdomen Abdomen: Soft, Non tender, Non distended - Derm Derm: Warm and dry - Extremities Extremities: No edema - Neuro Neuro: Alert and oriented X 3 Results - Vitals Vitals: Vital Signs - 24 hr 09/27/19 09/27/19 09/27/19 16:40 19:02 21:00 Temperature 36.4 C L 36.8 C Heart Rate 92 93 88 Respiratory 16 22 16 Rate Blood Pressure 144/85 H 155/94 H 111/79 O2 Saturation 94 97 95 09/27/19 21:47 Temperature Heart Rate 85 Respiratory 18 Rate Blood Pressure 125/81 H O2 Saturation 96 Oxygen O2 Source Room air - Labs Labs: Laboratory Tests 09/27/19 09/27/19 09/27/19 17:04 17:04 18:20 WBC 9.3 RBC 4.62 L Hgb 14.4 Hct 42.5 MCV 92.0 MCH 31.2 H MCHC 33.9 RDW 13.7 Plt Count 302 MPV 9.4 Neut # (Auto) 6.6 Lymph # (Auto) 1.8 [place] # (Auto) 0.7 Eos # (Auto) 0.1 Baso # (Auto) 0.1 Absolute Nucleated RBC 0.00 Nucleated RBC % 0.0 Sodium 134 L Potassium 3.7 Chloride 104 Carbon Dioxide 21 Anion Gap 9.0 BUN 16 Creatinine 0.9 Estimated GFR (MDRD) 87 L Glucose 121 H Calcium 9.2 Total Bilirubin 0.5 AST 17 ALT 20 Alkaline Phosphatase 68 Total Protein 7.6 Albumin 4.6 Globulin 3.0 Albumin/Globulin Ratio 1.5 Lipase 28 Urine Color YELLOW Urine Clarity CLEAR Urine pH 6.0 Ur Specific [place] >=1.030 H Urine Protein NEGATIVE Urine Glucose (UA) NEGATIVE Urine Ketones NEGATIVE Urine Occult Blood TRACE-LYSE Urine Nitrite NEGATIVE Urine Bilirubin NEGATIVE Urine Urobilinogen 0.2 (NORMAL) Ur Leukocyte Esterase NEGATIVE Ur Microscopic Review NOT INDICATED Urine Culture Comments NOT INDICATED Urine Opiates Screen Ur Oxycodone Screen Urine Methadone Screen Ur Propoxyphene Screen Ur Barbiturates Screen Ur Tricyclics Screen Ur Phencyclidine Scrn Ur Amphetamine Screen U Methamphetamines Scrn U Benzodiazepines Scrn Urine Cocaine Screen U Cannabinoids Screen 09/27/19 18:20 WBC RBC Hgb Hct MCV MCH MCHC RDW Plt Count MPV Neut # (Auto) Lymph # (Auto) [place] # (Auto) Eos # (Auto) Baso # (Auto) Absolute Nucleated RBC Nucleated RBC % Sodium Potassium Chloride Carbon Dioxide Anion Gap BUN Creatinine Estimated GFR (MDRD) Glucose Calcium Total Bilirubin AST ALT Alkaline Phosphatase Total Protein Albumin Globulin Albumin/Globulin Ratio Lipase Urine Color Urine Clarity Urine pH Ur Specific [place] Urine Protein Urine Glucose (UA) Urine Ketones Urine Occult Blood Urine Nitrite Urine Bilirubin Urine Urobilinogen Ur Leukocyte Esterase Ur Microscopic Review Urine Culture Comments Urine Opiates Screen NEGATIVE Ur Oxycodone Screen NEGATIVE Urine Methadone Screen NEGATIVE Ur Propoxyphene Screen NEGATIVE Ur Barbiturates Screen NEGATIVE Ur Tricyclics Screen POSITIVE H Ur Phencyclidine Scrn NEGATIVE Ur Amphetamine Screen NEGATIVE U Methamphetamines Scrn NEGATIVE U Benzodiazepines Scrn NEGATIVE Urine Cocaine Screen NEGATIVE U Cannabinoids Screen POSITIVE H - Rads (name of study) CT abdomen pelvis Radiology: Prelim report reviewed, EMP read contemporaneously, See rad report (No acute abnormality) PD MEDICAL DECISION MAKING - ED course Complexity details: reviewed results, re-evaluated patient, considered differential, d/w patient ED course: 59-year-old male presents the emergency department stating that he has nausea and vomiting today. Initially denied marijuana use, but talk screen was positive. He then stated that the last time he used was a day or 2 ago. Symptoms did not improve with Zofran and Phenergan, but did resolve completely with haloperidol. IV fluids given. Tolerating p.o. without difficulty. Patient request to go home at this time. Appears to be consistent with cannabinoid induced hyperemesis. Patient counseled regarding signs and symptoms for which I believe and urgent re-evaluation would be necessary. Patient with good understanding of and agreement to plan and is comfortable going home at this time This document was made in part using voice recognition software. While efforts are made to proofread this document, sound alike and grammatical errors may occur. Departure - Departure Disposition: 01 Home, Self Care Clinical Impression: Cannabinoid hyperemesis syndrome Condition: Good Instructions: ED Nausea Vomiting Follow-Up: ALAN GAMING MD [Primary Care Provider] - Within 1 week Comments: Drink plenty of fluids. Return if you worsen. Avoid marijuana. Discharge Date/Time: 09/27/19 21:47
[2019-09-27] MEDS ORDERED: HALOPERIDOL 5 MG/ML VIAL IVP STA (20:42)
--- NOTE | 2019-09-27 20:43 | CT Report ---
PROCEDURE: Abdomen/Pelvis W INDICATIONS: vomiting, abd pain CONTRAST: IV CONTRAST: Optiray 320 ml: 100 PO CONTRAST: *NO PO CONTRAST TECHNIQUE: After the administration of oral and intravenous contrast, 5 mm thick sections acquired from the diap hragms to the symphysis. 5 mm thick coronal and sagittal reformats were acquired. For radiation dos e reduction, the following was used: automated exposure control, adjustment of mA and/or kV accordin g to patient size. COMPARISON: 02/07/2019. FINDINGS: Image quality: Excellent. ABDOMEN: Lung bases: Lung bases are clear. Heart size is normal. Solid organs: Liver and spleen are normal in size and enhancement. Gallbladder is within normal [place] its Biliary system is non dilated. Pancreas enhances normally. No adrenal nodules. Kidneys demons trate normal size and enhancement, without hydronephrosis. Peritoneum and bowel: Small hiatal hernia is seen Bowel loops demonstrate normal wall thickness and caliber. No free fluid or air. Mild distal colonic diverticulosis is seen, no CT evidence of acute diverticulitis. Nodes and vessels: No retroperitoneal or mesenteric adenopathy by size criteria. Aorta and inferior vena cava are normal in size. Miscellaneous: No ventral hernias. PELVIS: Genitourinary: Bladder wall thickness is normal. Miscellaneous: No inguinal hernias or adenopathy. Bones: No suspicious bony lesions. No vertebral body compression fractures. IMPRESSION: 1. No bowel obstruction. No abnormal bowel wall thickening. No free fluid of free air. Mild colonic d iverticulosis, no evidence of acute diverticulitis. Reviewed by: Navid Frey MD on 09/27/2019 8:41 PM PDT Approved by: Navid Frey MD on 09/27/2019 8:41 PM PDT Station ID: [id number]
[2019-09-27 21:58] VITALS: BP 125/81
== END 2019-09-27 21:47 | disposition home or self-care (01) ==
LOC: ED 16:31
DX: R11.2 Nausea with vomiting, unspecified (principal); F17.200 Nicotine dependence, unspecified, uncomplicated
CPT/HCPCS: 36415; 74177; 80053; 80306; 81003; 83690; 85025; 96365; 96375; 99284; 99285; J7040; Q9967; 81001; 87086

== ENCOUNTER 2019-10-06 18:10 | Outpatient (CLI) | payer MEDICARE, MEDICAID | END 2019-10-06 23:59 | disposition EMS.NT | LOC: EMS 18:10 | PROVIDERS: ATTEND Surgery | DX: R55 Syncope and collapse (principal) ==

== ENCOUNTER 2019-11-01 12:06 | Emergency (ER) | payer MEDICARE, MEDICAID ==
[2019-11-01] MEDS ORDERED: SODIUM CHLORIDE 0.9% 1,000 ML IV STA ×2 (12:45→12:46)
[2019-11-01] MEDS ORDERED: HALOPERIDOL 5 MG/ML VIAL IVP STA (12:46)
--- NOTE | 2019-11-01 13:02 | ED Physician Documentation ---
History of Present Illness - Stated complaint Stated Complaint: LIGHTHEADED - Chief complaint Chief Complaint: General - History obtained from History obtained from: Patient, Family - History of Present Illness Timing: Last night Pain level max: 0 Pain level now: 0 - Additonal information Additional information: 59-year-old male presents to the emergency department with vomiting and diarrhea since last night. Nothing makes it better or worse. Uses marijuana frequently, last use was 2 days ago. No fevers. No recent travel. No recent antibiotics. Feels dehydrated and weak. Review of Systems Constitutional: denies: Fever, Chills Cardiac: denies: Chest pain / pressure, Palpitations Respiratory: denies: Cough GI: reports: Nausea, Vomiting, Diarrhea. denies: Abdominal Pain, Hematemesis, Bloody / black stool Skin: denies: Rash Musculoskeletal: denies: Neck pain, Back pain, Extremity pain Neurologic: denies: Headache PD PAST MEDICAL HISTORY - Past Medical History Cardiovascular: None Respiratory: None Neuro: Headaches Endocrine/Autoimmune: None GI: None : None HEENT: None Psych: Depression, Anxiety, Bipolar disorder Musculoskeletal: Osteoarthritis Derm: None - Past Surgical History Past Surgical History: Yes General: Appendectomy Ortho: Shoulder arthroplasty HEENT: Tonsil/Adenoidectomy - Present Medications Home Medications: Ambulatory Orders Medication Instructions Recorded Confirmed Bupropion HCl [Bupropion Xl] 300 mg PO DAILY 06/15/18 06/15/18 Gabapentin 800 mg PO TID 06/15/18 06/15/18 QUEtiapine [SEROquel] 400 mg PO ACHS 06/15/18 06/15/18 busPIRone [Buspar] 15 mg PO BID 06/15/18 06/15/18 Buspirone HCl 30 mg PO BID #14 tablet 12/06/18 Ondansetron Odt [Zofran Odt] 4 mg TL Q6H PRN #10 tablet 02/08/19 QUEtiapine [SEROquel] 400 mg PO QPM tablet 02/08/19 Dicyclomine [Bentyl] 10 mg PO ONCE PRN #10 capsule 02/22/19 Ondansetron Odt [Zofran] 4 mg TL Q6H PRN #10 tablet 02/22/19 Dicyclomine [Bentyl] 20 mg PO QID PRN #15 capsule 02/27/19 Ondansetron Odt [Zofran] 4 mg TL Q6H PRN #10 tablet 02/27/19 Quetiapine Fumarate [Seroquel] 400 mg PO DAILY #30 tablet 04/30/19 Buspirone HCl 30 mg PO DAILY #10 tablet 05/15/19 Diphenoxylate/Atropine [Lomotil] 1 each PO QID PRN #12 tablet 05/15/19 Famotidine 20 mg PO DAILY #30 tablet 05/15/19 Ondansetron Odt [Zofran] 4 mg TL Q6H PRN #20 tablet 05/15/19 Buspirone HCl 30 mg PO TID #30 tablet 05/17/19 QUEtiapine [SEROquel] 400 mg PO QPM #40 tablet 05/17/19 Lorazepam [Ativan] 1 mg PO TID PRN #3 tablet 05/24/19 LORazepam [Lorazepam] 0.5 mg PO TID PRN #12 tablet 05/26/19 Buspirone HCl 30 mg PO BID #30 tablet 05/28/19 Promethazine [Phenergan] 25 mg PO Q6H PRN #10 tab 05/28/19 Buspirone HCl 30 mg PO BID #14 tablet 08/21/19 Ondansetron Odt [Zofran] 4 mg TL Q6H PRN #10 tablet 08/21/19 Ondansetron Odt [Zofran] 4 mg TL Q6H PRN #10 tablet 11/01/19 - Allergies Allergies/Adverse Reactions: Allergies Allergy/AdvReac Type Severity Reaction Status Date / Time meloxicam Allergy Respiratory Verified 11/01/19 12:20 - Social History Does the pt smoke?: Yes Smoking Status: Current every day smoker Does the pt drink ETOH?: No Does the pt have substance abuse?: No - Immunizations Immunizations are current?: Yes - POLST Patient has POLST: No PD ED PE NORMAL - Vitals Vital signs reviewed: Yes - General General: Alert and oriented X 3, No acute distress, Well developed/nourished - HEENT HEENT: PERRL, Other (Dry lips and tongue) - Neck Neck: Supple, no meningeal sign - Cardiac Cardiac: RRR - Respiratory Respiratory: No respiratory distress, Clear bilaterally - Abdomen Abdomen: Soft, Non tender, Non distended - Derm Derm: Warm and dry - Extremities Extremities: No edema - Neuro Neuro: Alert and oriented X 3 - Psych Psych: Normal mood, Normal affect Results - Vitals Vitals: Vital Signs - 24 hr 11/01/19 11/01/19 11/01/19 12:16 12:20 13:54 Temperature 36.6 C Heart Rate 62 65 Respiratory 17 20 Rate Blood Pressure 99/66 89/71 L 91/66 O2 Saturation 98 99 Oxygen O2 Source Room air - Labs Labs: Laboratory Tests 11/01/19 11/01/19 12:52 12:52 WBC 9.5 RBC 4.32 L Hgb 13.6 L Hct 39.4 L MCV 91.2 MCH 31.5 H MCHC 34.5 RDW 13.3 Plt Count 309 MPV 9.5 Neut # (Auto) 7.7 H Lymph # (Auto) 1.1 L [place] # (Auto) 0.5 Eos # (Auto) 0.2 Baso # (Auto) 0.1 Absolute Nucleated RBC 0.00 Nucleated RBC % 0.0 Sodium 133 L Potassium 4.7 Chloride 98 L Carbon Dioxide 24 Anion Gap 11.0 BUN 17 Creatinine 1.1 Estimated GFR (MDRD) 69 L Glucose 102 H Calcium 9.4 Total Bilirubin 0.8 AST 14 ALT 17 Alkaline Phosphatase 68 Total Protein 6.9 Albumin 4.0 Globulin 2.9 Albumin/Globulin Ratio 1.4 Lipase 25 PD MEDICAL DECISION MAKING - ED course Complexity details: reviewed old records, reviewed results, re-evaluated patient, considered differential, d/w patient, d/w family ED course: Patient recently seen here for similar and improved with Haldol. Had a negative CT scan of the abdomen pelvis at that time. Given haloperidol today. Patient with recurrent cannabinoid induced hyperemesis. Feels much better after IV fluids and haloperidol. Symptoms resolved. Counseled to stop using marijuana. We will have him follow-up with his doctor for further care. Tolerating p.o. without difficulty. Patient counseled regarding signs and symptoms for which I believe and urgent re-evaluation would be necessary. Patient with good understanding of and agreement to plan and is comfortable going home at this time This document was made in part using voice recognition software. While efforts are made to proofread this document, sound alike and grammatical errors may occur. Departure - Departure Disposition: 01 Home, Self Care Clinical Impression: Cannabinoid hyperemesis syndrome Condition: Good Instructions: ED Nausea Vomiting Follow-Up: Provider,Other [Primary Care Provider] - Within 1 week Prescriptions: Ondansetron Odt [Zofran] 4 mg TL Q6H PRN #10 tablet PRN Reason: Nausea / Vomiting Comments: Return if you worsen. Follow up with your doctor for further care. You should avoid marijuana.
[2019-11-01 13:03] LABS: BASOPHILS # (AUTO) 0.1 10^3/uL (0.0-0.1); BASOPHILS % (AUTO) 0.6 %; EOSINOPHILS # (AUTO) 0.2 10^3/uL (0.0-0.7); EOSINOPHILS % (AUTO) 1.7 %; HGB - HEMOGLOBIN 13.6 g/dL (14.0-18.0); LYMPHOCYTES # (AUTO) 1.1 10^3/uL (1.5-3.5); LYMPHOCYTES % (AUTO) 11.1 %; MEAN CORPUSCULAR HEMOGLOBIN 31.5 pg (27.0-31.0); MEAN CORPUSCULAR HGB CONC 34.5 g/dL (32.0-36.0); MEAN CORPUSCULAR VOLUME 91.2 fL (80.0-94.0); MEAN PLATELET VOLUME 9.5 fL (7.4-11.4); MONOCYTES # (AUTO) 0.5 10^3/uL (0.0-1.0); MONOCYTES % (AUTO) 5.6 %; NEUTROPHILS # (AUTO) 7.7 10^3/uL (1.5-6.6); NEUTROPHILS % (AUTO) 80.7 %; PLT - PLATELET COUNT 309 10^3/uL (130-450); RED BLOOD COUNT 4.32 10^6/uL (4.70-6.10); RED CELL DISTRIBUTION WIDTH 13.3 % (12.0-15.0); WHITE BLOOD COUNT 9.5 x10^3/uL (4.8-10.8)
[2019-11-01 13:16] LABS: ALBUMIN/GLOBULIN RATIO 1.4 (1.0-2.2); BILIRUBIN,TOTAL 0.8 mg/dL (0.2-1.0); CALCIUM 9.4 mg/dL (8.5-10.3); CREATININE 1.1 mg/dL (0.6-1.2); TOTAL PROTEIN 6.9 g/dL (6.7-8.2)
[2019-11-01 15:29] VITALS: BP 125/65
== END 2019-11-01 15:29 | disposition home or self-care (01) ==
LOC: ED 12:06
DX: R11.2 Nausea with vomiting, unspecified (principal); F12.988 Cannabis use, unspecified with other cannabis-induced disorder; R19.7 Diarrhea, unspecified; F17.200 Nicotine dependence, unspecified, uncomplicated
CPT/HCPCS: 36415; 80053; 83690; 85025; 96361; 96374; 99284

== ENCOUNTER 2020-04-15 11:26 | Emergency (ER) | payer MEDICARE, MEDICAID ==
[2020-04-15] MEDS ORDERED: SODIUM CHLORIDE 0.9% 1,000 ML IV STA (11:43)
[2020-04-15] MEDS ORDERED: ONDANSETRON 4 MG/2 ML VIAL IVP STA ×2 (11:43→13:38)
[2020-04-15 12:03] LABS: BASOPHILS # (AUTO) 0.1 10^3/uL (0.0-0.1); BASOPHILS % (AUTO) 0.6 %; EOSINOPHILS % (AUTO) 0.2 %; HGB - HEMOGLOBIN 15.2 g/dL (14.0-18.0); LYMPHOCYTES # (AUTO) 1.9 10^3/uL (1.5-3.5); LYMPHOCYTES % (AUTO) 12.9 %; MEAN CORPUSCULAR HEMOGLOBIN 31.1 pg (27.0-31.0); MEAN CORPUSCULAR HGB CONC 34.3 g/dL (32.0-36.0); MEAN CORPUSCULAR VOLUME 90.6 fL (80.0-94.0); MEAN PLATELET VOLUME 9.3 fL (7.4-11.4); MONOCYTES % (AUTO) 6.8 %; NEUTROPHILS # (AUTO) 11.5 10^3/uL (1.5-6.6); NEUTROPHILS % (AUTO) 79.2 %; PLT - PLATELET COUNT 350 10^3/uL (130-450); RED BLOOD COUNT 4.89 10^6/uL (4.70-6.10); RED CELL DISTRIBUTION WIDTH 13.1 % (12.0-15.0); WHITE BLOOD COUNT 14.5 x10^3/uL (4.8-10.8)
[2020-04-15 12:10] LABS: ALBUMIN 4.9 g/dL (3.2-5.5); ALBUMIN/GLOBULIN RATIO 1.5 (1.0-2.2); BILIRUBIN,TOTAL 0.6 mg/dL (0.2-1.0); CALCIUM 10.6 mg/dL (8.5-10.3); CREATININE 1.3 mg/dL (0.6-1.2); TOTAL PROTEIN 8.2 g/dL (6.7-8.2)
[2020-04-15] MEDS ORDERED: LACTATED RINGERS 1,000 ML IV STA (13:38)
[2020-04-15] MEDS ORDERED: METOCLOPRAMIDE 10 MG/2 ML VIAL IVP STA (14:14)
[2020-04-15] MEDS ORDERED: diphenhydrAMINE INJ 50 MG/ML VIAL IVP STA (14:14)
[2020-04-15 15:00] LABS: BILIRUBIN,URINE NEGATIVE (NEGATIVE); GLUCOSE, URINE (UA) NEGATIVE (NEGATIVE); KETONES,URINE (UA) TRACE mg/dL (NEGATIVE); LEUKOCYTE ESTERASE, URINE NEGATIVE (NEGATIVE); NITRITE,URINE NEGATIVE (NEGATIVE); OCCULT BLOOD,URINE NEGATIVE (NEGATIVE); PROTEIN,URINE NEGATIVE (NEGATIVE); UROBILINOGEN,URINE 0.2 (NORMAL) E.U./dL (NORMAL)
[2020-04-15 15:02] LABS: CLARITY,URINE CLEAR (CLEAR)
[2020-04-15] MEDS ORDERED: busPIRone 5 MG TABLET PO STA (16:00)
--- NOTE | 2020-04-15 16:08 | ED Physician Documentation ---
History of Present Illness - Stated complaint Stated Complaint: NAUSEA,CHILLS - Chief complaint Chief Complaint: Abd Pain - History obtained from History obtained from: Patient, Family () - Additonal information Additional information: 60-year-old man with history of insomnia on Seroquel, psychiatric illness on buspirone, bupropion, gabapentin presents with nausea and vomiting nonbloody nonbilious for the past 2 days associated with loose stools and chills. states that he has not been sleeping over the past 2 nights or eating because he ran out of [employer]. She thinks that that is the cause of his symptoms because he has not been having fevers and there is no one sick at home. He had his last dose of buspirone today and does not have any more pills either.Patient denies fevers, abdominal pain, urinary symptoms or back pain. Review of Systems Constitutional: reports: Chills, Myalgias. denies: Fever GI: reports: Nausea, Vomiting. denies: Abdominal Pain : denies: Dysuria PD PAST MEDICAL HISTORY - Past Medical History Past Medical History: Yes Cardiovascular: None Respiratory: None Neuro: Headaches Endocrine/Autoimmune: None GI: None : None HEENT: None Psych: Depression, Anxiety, Bipolar disorder Musculoskeletal: Osteoarthritis Derm: None - Past Surgical History Past Surgical History: Yes General: Appendectomy Ortho: Shoulder arthroplasty HEENT: Tonsil/Adenoidectomy - Present Medications Home Medications: Ambulatory Orders Medication Instructions Recorded Confirmed Bupropion HCl [Bupropion Xl] 300 mg PO DAILY 06/15/18 06/15/18 Gabapentin 800 mg PO TID 06/15/18 06/15/18 QUEtiapine [SEROquel] 400 mg PO ACHS 06/15/18 06/15/18 busPIRone [Buspar] 15 mg PO BID 06/15/18 06/15/18 Buspirone HCl 30 mg PO BID #14 tablet 12/06/18 Ondansetron Odt [Zofran Odt] 4 mg TL Q6H PRN #10 tablet 02/08/19 QUEtiapine [SEROquel] 400 mg PO QPM tablet 02/08/19 Dicyclomine [Bentyl] 10 mg PO ONCE PRN #10 capsule 02/22/19 Ondansetron Odt [Zofran] 4 mg TL Q6H PRN #10 tablet 02/22/19 Dicyclomine [Bentyl] 20 mg PO QID PRN #15 capsule 02/27/19 Ondansetron Odt [Zofran] 4 mg TL Q6H PRN #10 tablet 02/27/19 Quetiapine Fumarate [Seroquel] 400 mg PO DAILY #30 tablet 04/30/19 Buspirone HCl 30 mg PO DAILY #10 tablet 05/15/19 Diphenoxylate/Atropine [Lomotil] 1 each PO QID PRN #12 tablet 05/15/19 Famotidine 20 mg PO DAILY #30 tablet 05/15/19 Ondansetron Odt [Zofran] 4 mg TL Q6H PRN #20 tablet 05/15/19 Buspirone HCl 30 mg PO TID #30 tablet 05/17/19 QUEtiapine [SEROquel] 400 mg PO QPM #40 tablet 05/17/19 Lorazepam [Ativan] 1 mg PO TID PRN #3 tablet 05/24/19 LORazepam [Lorazepam] 0.5 mg PO TID PRN #12 tablet 05/26/19 Buspirone HCl 30 mg PO BID #30 tablet 05/28/19 Promethazine [Phenergan] 25 mg PO Q6H PRN #10 tab 05/28/19 Buspirone HCl 30 mg PO BID #14 tablet 08/21/19 Ondansetron Odt [Zofran] 4 mg TL Q6H PRN #10 tablet 08/21/19 Ondansetron Odt [Zofran] 4 mg TL Q6H PRN #10 tablet 11/01/19 Buspirone HCl 20 mg PO TID #90 tablet 04/15/20 Ondansetron Odt [Zofran Odt] 4 mg PO Q8H PRN #9 tablet 04/15/20 QUEtiapine [SEROquel] 300 mg PO QPM #30 tablet 04/15/20 - Allergies Allergies/Adverse Reactions: Allergies Allergy/AdvReac Type Severity Reaction Status Date / Time meloxicam Allergy Respiratory Verified 04/15/20 11:33 - Social History Does the pt smoke?: Yes Smoking Status: Current every day smoker Does the pt drink ETOH?: No Does the pt have substance abuse?: No Substance Use and Type: Marijuana - Immunizations Immunizations are current?: Yes - POLST Patient has POLST: No PD ED PE NORMAL - Vitals Vital signs reviewed: Yes - General General: Alert and oriented X 3, No acute distress - HEENT HEENT: Atraumatic, PERRL, EOMI - Neck Neck: Supple, no meningeal sign - Cardiac Cardiac: RRR - Respiratory Respiratory: No respiratory distress, Clear bilaterally - Abdomen Abdomen: Non tender, Non distended - Male Male : Deferred - Rectal Rectal: Deferred - Back Back: No CVA TTP - Derm Derm: Normal color, Warm and dry - Extremities Extremities: No deformity - Neuro Neuro: Alert and oriented X 3 - Psych Psych: Normal mood, Normal affect Results - Vitals Vitals: Vital Signs - 24 hr 04/15/20 04/15/20 04/15/20 11:33 11:59 13:26 Temperature 36.6 C Heart Rate 94 84 85 Respiratory 24 18 18 Rate Blood Pressure 135/86 H 124/78 119/74 O2 Saturation 96 97 95 04/15/20 04/15/20 04/15/20 14:52 15:42 16:00 Temperature Heart Rate 88 88 86 Respiratory 16 18 16 Rate Blood Pressure 136/81 H 113/77 118/79 O2 Saturation 99 98 99 Oxygen O2 Source Room air - Labs Labs: Laboratory Tests 04/15/20 04/15/20 04/15/20 11:45 11:45 14:39 WBC 14.5 H RBC 4.89 Hgb 15.2 Hct 44.3 MCV 90.6 MCH 31.1 H MCHC 34.3 RDW 13.1 Plt Count 350 MPV 9.3 Neut # (Auto) 11.5 H Lymph # (Auto) 1.9 [place] # (Auto) 1.0 Eos # (Auto) 0.0 Baso # (Auto) 0.1 Absolute Nucleated RBC 0.00 Nucleated RBC % 0.0 Sodium 138 Potassium 3.7 Chloride 99 L Carbon Dioxide 21 Anion Gap 18.0 H BUN 14 Creatinine 1.3 H Estimated GFR (MDRD) 57 L Glucose 108 H Lactic Acid 1.6 Calcium 10.6 H Total Bilirubin 0.6 AST 20 ALT 17 Alkaline Phosphatase 77 Total Protein 8.2 Albumin 4.9 Globulin 3.3 Albumin/Globulin Ratio 1.5 Lipase 29 Urine Color Urine Clarity Urine pH Ur Specific [place] Urine Protein Urine Glucose (UA) Urine Ketones Urine Occult Blood Urine Nitrite Urine Bilirubin Urine Urobilinogen Ur Leukocyte Esterase Ur Microscopic Review Urine Culture Comments 04/15/20 14:45 WBC RBC Hgb Hct MCV MCH MCHC RDW Plt Count MPV Neut # (Auto) Lymph # (Auto) [place] # (Auto) Eos # (Auto) Baso # (Auto) Absolute Nucleated RBC Nucleated RBC % Sodium Potassium Chloride Carbon Dioxide Anion Gap BUN Creatinine Estimated GFR (MDRD) Glucose Lactic Acid Calcium Total Bilirubin AST ALT Alkaline Phosphatase Total Protein Albumin Globulin Albumin/Globulin Ratio Lipase Urine Color YELLOW Urine Clarity CLEAR Urine pH 7.0 Ur Specific [place] 1.020 Urine Protein NEGATIVE Urine Glucose (UA) NEGATIVE Urine Ketones TRACE Urine Occult Blood NEGATIVE Urine Nitrite NEGATIVE Urine Bilirubin NEGATIVE Urine Urobilinogen 0.2 (NORMAL) Ur Leukocyte Esterase NEGATIVE Ur Microscopic Review NOT INDICATED Urine Culture Comments NOT INDICATED PD MEDICAL DECISION MAKING - ED course ED course: 60-year-old man with past medical history of psychiatric illness presents with nausea and vomiting for the past 2 days after running out of his Seroquel. states that he has not slept in 2 nights and also has had decreased p.o. intake after running out of Seroquel. He began to have dry heaves and nausea and vomiting that is nonbloody nonbilious as well as some loose stools over the past 2 days associated with chills but no fever. He also ran out of his buspirone today. Denies abdominal pain. Denies other symptoms. No sick contacts. Blood work, EKG without focal concerning findings with exception of elevated white count which can be explained by vomiting. Patient feeling better after symptomatic care. Will send prescription to pharmacy. Return precautions given. Follow-up with your doctor this week. Departure - Departure Disposition: 01 Home, Self Care Clinical Impression: Nausea and vomiting, Insomnia, Tremors of nervous system Condition: Good Instructions: Diet Clear Liquid Dc Prescriptions: Buspirone HCl 20 mg PO TID #90 tablet QUEtiapine [SEROquel] 300 mg PO QPM #30 tablet Ondansetron Odt [Zofran Odt] 4 mg PO Q8H PRN #9 tablet PRN Reason: Nausea / Vomiting Comments: You were seen in the emergency department for nausea and vomiting. It appears to have improved with Reglan and Zofran and IV fluids. Make sure that you do not miss any more doses of your medications. I have filled the prescription and you can drop it off at any pharmacy. You need to refill your prescription with your regular doctor as soon as you get to the last week.Return to the ED if you spike fevers or if you have any new or worsening symptoms or other concerns. Discharge Date/Time: 04/15/20 16:25
[2020-04-15 16:10] VITALS: BP 118/79
== END 2020-04-15 16:25 | disposition home or self-care (01) ==
LOC: ED 11:26
DX: R11.2 Nausea with vomiting, unspecified (principal); R68.83 Chills (without fever); R25.1 Tremor, unspecified; G47.00 Insomnia, unspecified; F31.9 Bipolar disorder, unspecified; Z76.0 Encounter for issue of repeat prescription; F17.200 Nicotine dependence, unspecified, uncomplicated
CPT/HCPCS: 36415; 80053; 81003; 83605; 83690; 85025; 96361; 96374; 96375; 96376; 99283; 99284; A9270; J1200; J2765; J7120; 81001; 87086

== ENCOUNTER 2020-09-10 17:39 | Emergency (ER) | payer MEDICARE, MEDICAID ==
--- NOTE | 2020-09-10 18:53 | ED Physician Documentation ---
PD HPI NVD - Stated complaint Stated Complaint: MED REFILL - Chief complaint Chief Complaint: General - History obtained from History obtained from: Patient, Family ( with him) - History of Present Illness Timing - onset: How many days ago (3) Timing - duration: Days (3) Timing - details: Gradual onset, Still present Associated symptoms: Loss of appetite. No: Fever, Abdominal pain, Chest pain, Near syncope / syncope Contributing factors: Other (he ran out of 2 of his usual meds and trying to get refills from psych provider through [facility]. Presumes will be able to get refill in the next week. Onset of anxious, nausea and vomiting since out of meds and increasing.). No: Sick contact, Bad food, Travel Improved by: No: Vomiting Worsened by: Eating Similar symptoms before: Has not had sx before Recently seen: Not recently seen Review of Systems Constitutional: denies: Fever, Chills Nose: denies: Rhinorrhea / runny nose, Congestion Throat: denies: Sore throat Respiratory: denies: Cough GI: reports: Nausea, Vomiting. denies: Abdominal Pain, Constipation, Diarrhea : denies: Dysuria, Frequency Skin: denies: Rash, Lesions Neurologic: denies: Altered mental status, Headache PD PAST MEDICAL HISTORY - Past Medical History Past Medical History: Yes Cardiovascular: None Respiratory: None Neuro: Headaches Endocrine/Autoimmune: None GI: None : None HEENT: None Psych: Depression, Anxiety, Bipolar disorder Musculoskeletal: Osteoarthritis Derm: None - Past Surgical History Past Surgical History: Yes General: Appendectomy Ortho: Shoulder arthroplasty HEENT: Tonsil/Adenoidectomy - Present Medications Home Medications: Ambulatory Orders Medication Instructions Recorded Confirmed Buspirone HCl 20 mg PO TID 10 Days #60 tab 09/10/20 Ondansetron Odt [Zofran] 4 mg TL Q6H PRN #10 tablet 09/10/20 Quetiapine Fumarate [Seroquel Xr] 300 mg PO HS 09/10/20 09/10/20 Quetiapine Fumarate [Seroquel Xr] 300 mg PO QPM 10 Days #10 tab 09/10/20 traZODone [Desyrel] 50 mg PO HS 09/10/20 09/10/20 - Allergies Allergies/Adverse Reactions: Allergies Allergy/AdvReac Type Severity Reaction Status Date / Time meloxicam Allergy Respiratory Verified 09/10/20 18:00 - Living Situation Living Situation: reports: With spouse/s.o. Living Arrangement: reports: At home - Social History Does the pt smoke?: Yes Smoking Status: Current every day smoker Does the pt drink ETOH?: No Does the pt have substance abuse?: No - Immunizations Immunizations are current?: Yes - POLST Patient has POLST: No PD ED PE NORMAL - Vitals Vital signs reviewed: Yes - General General: Alert and oriented X 3, No acute distress, Well developed/nourished - Cardiac Cardiac: RRR, No murmur - Respiratory Respiratory: Clear bilaterally - Abdomen Abdomen: Normal bowel sounds, Soft, Non tender, Non distended - Derm Derm: Normal color, Warm and dry - Neuro Neuro: Alert and oriented X 3, No motor deficit, Normal speech - Psych Psych: Normal mood, Normal affect (pleasant and conversant) Results - Vitals Vitals: Vital Signs - 24 hr 09/10/20 09/10/20 17:56 19:52 Temperature 36.6 C 36.9 C Heart Rate 99 87 Respiratory 15 22 Rate Blood Pressure 99/76 112/76 O2 Saturation 100 97 Oxygen O2 Source Room air PD MEDICAL DECISION MAKING - ED course Complexity details: reviewed old records (No NIKKY report), considered differential (he states onset nausea and vomiting and anxious when ran out of meds. Denies recreational drug use. ), d/w patient Departure - Departure Disposition: 01 Home, Self Care Clinical Impression: No mechanism for timely refill of medication Nausea and vomiting Qualifiers: Vomiting type: unspecified Vomiting Intractability: non-intractable Qualified Code(s): R11.2 - Nausea with vomiting, unspecified Medication withdrawal Qualifiers: Substance type: other psychoactive substance Qualified Code(s): F19.939 - Other psychoactive substance use, unspecified with withdrawal, unspecified Condition: Stable Record reviewed to determine appropriate education?: Yes Instructions: ED Nausea Vomiting Follow-Up: GEORGE GAMING ARNP [Primary Care Provider] - Prescriptions: Buspirone HCl 20 mg PO TID 10 Days #60 tab Quetiapine Fumarate [Seroquel Xr] 300 mg PO QPM 10 Days #10 tab Ondansetron Odt [Zofran] 4 mg TL Q6H PRN #10 tablet PRN Reason: Nausea / Vomiting Comments: Continue usual medications. I wrote refill for 10 days worth which hopefully will be time for you to get a refill from your provider at [facility]. Add ondansetron if needed for nausea. Frequent fluids and resume regular diet. Recheck if not improved well over the next couple of days. Discharge Date/Time: 09/10/20 20:01
[2020-09-10] MEDS ORDERED: QUEtiapine 100 MG TABLET PO STA (19:15)
[2020-09-10] MEDS ORDERED: busPIRone 5 MG TABLET PO STA (19:15)
[2020-09-10] MEDS ORDERED: ONDANSETRON ODT 4 MG TABLET TL STA (19:16)
[2020-09-10 19:53] VITALS: BP 112/76
[2020-09-10] MEDS ORDERED: busPIRone 5 MG TABLET PO ONE (19:54)
== END 2020-09-10 20:01 | disposition home or self-care (01) ==
LOC: ED 17:39
DX: F19.939 Other psychoactive substance use, unspecified with withdrawal, unspecified (principal); R11.2 Nausea with vomiting, unspecified; T50.916A Underdosing of multiple unspecified drugs, medicaments and biological substances, initial encounter; Z91.138 Patient's unintentional underdosing of medication regimen for other reason; F17.200 Nicotine dependence, unspecified, uncomplicated
CPT/HCPCS: 99282; 99283; A9270; Q0162

== ENCOUNTER 2020-11-05 08:43 | Emergency (ER) | payer MEDICARE, MEDICAID ==
[2020-11-05 09:26] LABS: BASOPHILS # (AUTO) 0.1 10^3/uL (0.0-0.1); EOSINOPHILS # (AUTO) 0.1 10^3/uL (0.0-0.7); EOSINOPHILS % (AUTO) 1.4 %; HCT - HEMATOCRIT 45.8 % (42.0-52.0); HGB - HEMOGLOBIN 15.7 g/dL (14.0-18.0); LYMPHOCYTES # (AUTO) 2.2 10^3/uL (1.5-3.5); LYMPHOCYTES % (AUTO) 22.7 %; MEAN CORPUSCULAR HEMOGLOBIN 31.5 pg (27.0-31.0); MEAN CORPUSCULAR HGB CONC 34.3 g/dL (32.0-36.0); MEAN PLATELET VOLUME 9.9 fL (7.4-11.4); MONOCYTES # (AUTO) 0.9 10^3/uL (0.0-1.0); MONOCYTES % (AUTO) 8.8 %; NEUTROPHILS # (AUTO) 6.4 10^3/uL (1.5-6.6); NEUTROPHILS % (AUTO) 65.9 %; PLT - PLATELET COUNT 314 10^3/uL (130-450); RED BLOOD COUNT 4.98 10^6/uL (4.70-6.10); RED CELL DISTRIBUTION WIDTH 13.9 % (12.0-15.0); WHITE BLOOD COUNT 9.7 x10^3/uL (4.8-10.8)
[2020-11-05] MEDS ORDERED: MORPHINE 2 MG/ML CARPUJECT IVP STA (09:41)
[2020-11-05] MEDS ORDERED: ONDANSETRON 4 MG/2 ML VIAL IVP STA ×2 (09:41→11:15)
[2020-11-05] MEDS ORDERED: SODIUM CHLORIDE 0.9% 1,000 ML IV STA (09:41)
[2020-11-05 09:44] LABS: ALBUMIN 4.8 g/dL (3.2-5.5); ALBUMIN/GLOBULIN RATIO 1.7 (1.0-2.2); BILIRUBIN,TOTAL 0.7 mg/dL (0.2-1.0); CALCIUM 9.7 mg/dL (8.5-10.3); CREATININE 1.1 mg/dL (0.6-1.2); POTASSIUM 3.8 mmol/L (3.5-5.0); TOTAL PROTEIN 7.7 g/dL (6.7-8.2)
--- NOTE | 2020-11-05 09:45 | ED Physician Documentation ---
PD HPI ABD PAIN - Stated complaint Stated Complaint: MALE - Chief complaint Chief Complaint: Abd Pain - History obtained from History obtained from: Patient, Family - History of Present Illness Timing - onset: Last night Timing - duration: Days (1) Timing - details: Gradual onset, Still present Quality: Cramping, Sharp, Pain Location: Periumbilical Improved by: Laying still Worsened by: Moving, Breathing, Position, Palpation Associated symptoms: Nausea, Vomiting, Hematuria Similar symptoms before: Has not had sx before Recently seen: Not recently seen - Additional information Additional information: 60-year-old male with history of bipolar affective disorder and anxiety has developed a cough over the past 4 days that is mostly in the morning. Last night he developed some abdominal pain associated and nausea and vomiting. He had some blood in his urine last night and again this morning. He was unable to sleep last night secondary to his abdominal pain and vomiting. His indicates his cough is been only in the morning. He denies having a fever and states that all of the phlegm he is been producing is clear. He denies any pain in his ears does have some absence of hearing in the right side that is previous. He has not had his Covid vaccination. Review of Systems Constitutional: reports: Fatigue. denies: Fever Eyes: denies: Decreased vision Ears: denies: Ear pain Nose: denies: Rhinorrhea / runny nose, Congestion Throat: denies: Sore throat Cardiac: denies: Chest pain / pressure, Palpitations, Pedal edema, Calf pain Respiratory: reports: Cough. denies: Dyspnea, Wheezing GI: reports: Abdominal Pain, Nausea, Vomiting : reports: Hematuria. denies: Dysuria, Frequency Skin: denies: Rash Musculoskeletal: denies: Neck pain, Back pain, Extremity pain Neurologic: denies: Generalized weakness, Focal weakness, Numbness PD PAST MEDICAL HISTORY - Past Medical History Cardiovascular: None Respiratory: None Neuro: Headaches Endocrine/Autoimmune: None GI: None : None HEENT: None Psych: Depression, Anxiety, Bipolar disorder Musculoskeletal: Osteoarthritis Derm: None - Past Surgical History Past Surgical History: Yes General: Appendectomy Ortho: Shoulder arthroplasty HEENT: Tonsil/Adenoidectomy - Present Medications Home Medications: Ambulatory Orders Medication Instructions Recorded Confirmed Buspirone HCl 20 mg PO TID 10 Days #60 tab 09/10/20 Ondansetron Odt [Zofran] 4 mg TL Q6H PRN #10 tablet 09/10/20 Quetiapine Fumarate [Seroquel Xr] 300 mg PO HS 09/10/20 09/10/20 Quetiapine Fumarate [Seroquel Xr] 300 mg PO QPM 10 Days #10 tab 09/10/20 traZODone [Desyrel] 50 mg PO HS 09/10/20 09/10/20 Ondansetron Odt [Zofran] 4 mg TL Q6H PRN #10 tablet 11/05/20 metroNIDAZOLE [Flagyl] 500 mg PO BID #14 tablet 11/05/20 - Allergies Allergies/Adverse Reactions: Allergies Allergy/AdvReac Type Severity Reaction Status Date / Time meloxicam Allergy Respiratory Verified 11/05/20 08:53 - Social History Does the pt smoke?: Yes Smoking Status: Current every day smoker Does the pt drink ETOH?: No Does the pt have substance abuse?: No - Immunizations Immunizations are current?: Yes - POLST Patient has POLST: No PD ED PE NORMAL - Vitals Vital signs reviewed: Yes (hypertensive ) - General General: Alert and oriented X 3, Well developed/nourished, Other (60 y/o male with grunting respirations appears to be in pain ) - HEENT HEENT: Atraumatic, PERRL, EOMI - Neck Neck: Supple, no meningeal sign, No bony TTP - Cardiac Cardiac: RRR, No murmur - Respiratory Respiratory: No respiratory distress, Clear bilaterally - Abdomen Abdomen: Normal bowel sounds, Soft, Non distended, No organomegaly, Other (There is midline fullness, firmness and tenderness. There is not a discrete boundary to a hernia palpable. ) - Back Back: No CVA TTP, No spinal TTP - Derm Derm: Normal color, Warm and dry, No rash - Extremities Extremities: No deformity, No edema - Neuro Neuro: Alert and oriented X 3, roustabout crew 2-12 intact, No motor deficit, No sensory deficit, Normal speech Eye Opening: Spontaneous Motor: Obeys Commands Verbal: Oriented GCS Score: 15 - Psych Psych: Normal mood, Normal affect Results - Vitals Vitals: Vital Signs - 24 hr 11/05/20 11/05/20 08:46 10:53 Temperature 36.6 C Heart Rate 77 75 Respiratory 15 25 H Rate Blood Pressure 142/85 H 128/90 H O2 Saturation 99 95 Oxygen O2 Source Room air - Labs Labs: Laboratory Tests 11/05/20 11/05/20 11/05/20 09:19 09:19 10:28 WBC 9.7 RBC 4.98 Hgb 15.7 Hct 45.8 MCV 92.0 MCH 31.5 H MCHC 34.3 RDW 13.9 Plt Count 314 MPV 9.9 Neut # (Auto) 6.4 Lymph # (Auto) 2.2 [place] # (Auto) 0.9 Eos # (Auto) 0.1 Baso # (Auto) 0.1 Absolute Nucleated RBC 0.00 Nucleated RBC % 0.0 Sodium 140 Potassium 3.8 Chloride 110 Carbon Dioxide 22 Anion Gap 8.0 BUN 21 H Creatinine 1.1 Estimated GFR (MDRD) 69 L Glucose 116 H Calcium 9.7 Total Bilirubin 0.7 AST 16 ALT 20 Alkaline Phosphatase 65 Total Protein 7.7 Albumin 4.8 Globulin 2.9 Albumin/Globulin Ratio 1.7 Lipase 52 H Urine Color Urine Clarity Urine pH Ur Specific [place] Urine Protein Urine Glucose (UA) Urine Ketones Urine Occult Blood Urine Nitrite Urine Bilirubin Urine Urobilinogen Ur Leukocyte Esterase Ur Microscopic Review Urine Culture Comments Nasal Adenovirus (PCR) NOT DETECTED Nasal B. parapertussis DNA (PCR) NOT DETECTED Nasal Coronavir 229E PCR NOT DETECTED Nasal Coronavir HKU1 PCR NOT DETECTED Nasal Coronavir NL63 PCR NOT DETECTED Nasal Coronavir OC43 PCR NOT DETECTED Nasal Enterovir/Rhinovir PCR NOT DETECTED Nasal Influenza B PCR NOT DETECTED Nasal Influenza A PCR NOT DETECTED Nasal Parainfluen 1 PCR NOT DETECTED Nasal Parainfluen 2 PCR NOT DETECTED Nasal Parainfluen 3 PCR NOT DETECTED Nasal Parainfluen 4 PCR NOT DETECTED Nasal RSV (PCR) NOT DETECTED Nasal B.pertussis DNA PCR NOT DETECTED Nasal C.pneumoniae (PCR) NOT DETECTED Jhonatan Human Metapneumo PCR NOT DETECTED Nasal M.pneumoniae (PCR) NOT DETECTED Nasal SARS-CoV-2 (PCR) NOT DETECTED 11/05/20 11:33 WBC RBC Hgb Hct MCV MCH MCHC RDW Plt Count MPV Neut # (Auto) Lymph # (Auto) [place] # (Auto) Eos # (Auto) Baso # (Auto) Absolute Nucleated RBC Nucleated RBC % Sodium Potassium Chloride Carbon Dioxide Anion Gap BUN Creatinine Estimated GFR (MDRD) Glucose Calcium Total Bilirubin AST ALT Alkaline Phosphatase Total Protein Albumin Globulin Albumin/Globulin Ratio Lipase Urine Color YELLOW Urine Clarity CLEAR Urine pH 6.0 Ur Specific [place] 1.010 Urine Protein NEGATIVE Urine Glucose (UA) NEGATIVE Urine Ketones NEGATIVE Urine Occult Blood LARGE H Urine Nitrite NEGATIVE Urine Bilirubin NEGATIVE Urine Urobilinogen 0.2 (NORMAL) Ur Leukocyte Esterase NEGATIVE Ur Microscopic Review INDICATED Urine Culture Comments Not Reportable Nasal Adenovirus (PCR) Nasal B. parapertussis DNA (PCR) Nasal Coronavir 229E PCR Nasal Coronavir HKU1 PCR Nasal Coronavir NL63 PCR Nasal Coronavir OC43 PCR Nasal Enterovir/Rhinovir PCR Nasal Influenza B PCR Nasal Influenza A PCR Nasal Parainfluen 1 PCR Nasal Parainfluen 2 PCR Nasal Parainfluen 3 PCR Nasal Parainfluen 4 PCR Nasal RSV (PCR) Nasal B.pertussis DNA PCR Nasal C.pneumoniae (PCR) Jhonatan Human Metapneumo PCR Nasal M.pneumoniae (PCR) Nasal SARS-CoV-2 (PCR) - Rads (name of study) CT ab/pel w Radiology: Prelim report reviewed (Impression: Generalized wall thickening can be seen involving the colon. This is attributed to nonspecific colitis. Please correlate with potential infectious and inflammatory causes of colitis. No findings of perforation or abscess are detected. No significant free fluid is seen. ), Final report received (Incidental note is made of small hiatal hernia diverticulosis, without findings of active diverticulitis. ), EMP read indepedently, See rad report Procedures - Bedside sono Bedside sono by EMP: With use bedside ultrasound the bladder is imaged it is not excessively enlarged there is some urine in the bladder. - IVC sono (time) 0940 Bedside IVC sono: IVC measures (cm) (1.12), Dehydration (est 1-2 liter deficit) PD MEDICAL DECISION MAKING - ED course Complexity details: reviewed old records, reviewed results, re-evaluated patient, considered differential, d/w patient, d/w family ED course: 60-year-old male with a bipolar affective disorder and a known periumbilical hernia has developed a cough over the past 4 days and now he has abdominal pain nausea and vomiting consistent with an incarcerated hernia. He is administered intravenous saline and morphine for pain control as well as Zofran. I did attempt to reduce the hernia at the bedside but I was not able to clearly pal silveira a margin to the hernia and despite what felt like the hernia improving the patient had persistence of symptoms. We have up ordered a CT of the abdomen pelvis. I have examined the patient for a cause of cough and I do not hear rhonchi on exam the TMs are clear, the patient does have a history of chronic maxillary sinusitis. Departure - Departure Disposition: 01 Home, Self Care Clinical Impression: Gastroenteritis Condition: Stable Instructions: ED Gastroenteritis Bacterial Follow-Up: GEORGE GAMING ARNP [Primary Care Provider] - Prescriptions: metroNIDAZOLE [Flagyl] 500 mg PO BID #14 tablet Ondansetron Odt [Zofran] 4 mg TL Q6H PRN #10 tablet PRN Reason: Nausea / Vomiting
[2020-11-05] MEDS ORDERED: IOPAMIDOL-300 50 ML VIAL ONE (09:47)
[2020-11-05] MEDS ORDERED: IOPAMIDOL-300 50 ML VIAL IVP ONE (10:10)
--- NOTE | 2020-11-05 10:25 | CT Report ---
PROCEDURE: Abdomen/Pelvis W INDICATIONS: midline pain vomiting hernia CONTRAST: IV CONTRAST: Isovue 300 ml: 100 PO CONTRAST: *NO PO CONTRAST TECHNIQUE: After the administration of IV contrast, 5 mm thick sections acquired from the diaphragms to the symp hysis. 5 mm thick coronal and sagittal reformats were acquired. For radiation dose reduction, the f ollowing was used: automated exposure control, adjustment of mA and/or kV according to patient size. COMPARISON: 09/27/2019, 02/07/2019 FINDINGS: Image quality: Excellent. ABDOMEN: Lung bases: Lung bases are clear. Heart size is normal. A small hiatal hernia is incidentally note d. Solid organs: Liver and spleen are normal in size and enhancement. Gallbladder is partially collaps ed at the time of this study Biliary system is non dilated. Pancreas enhances normally. No adrenal nodules. Kidneys demonstrate normal size and enhancement, without hydronephrosis. Peritoneum and bowel: Mild generalized wall thickening can be seen involving the colon. No dilated lo ops of small bowel are seen. No small bowel wall thickening can be seen. No free fluid or air. Diver ticulosis can be seen, without darryl findings of active diverticulitis. Nodes and vessels: No retroperitoneal or mesenteric adenopathy by size criteria. Aorta and inferior vena cava are normal in size. Miscellaneous: No ventral hernias. PELVIS: Genitourinary: Bladder wall thickness is normal. Miscellaneous: No inguinal adenopathy. There is a fat-containing left inguinal hernia. Bones: No suspicious bony lesions. No vertebral body compression fractures. IMPRESSION: Generalized wall thickening can be seen involving the colon. This is attributed to nonsp ecific colitis. Please correlate with potential infectious and inflammatory causes of colitis. No findings of perforation or abscess are detected. No significant free fluid is seen. Incidental note is made of: Small hiatal hernia Diverticulosis, without findings of active diverticulitis. Reviewed by: Bj Baer MD on 11/05/2020 9:24 AM MICHELLE Approved by: Bj Baer MD on 11/05/2020 9:24 AM MICHELLE Station ID: [id number]
[2020-11-05] MEDS ORDERED: LORazepam 2 MG/ML VIAL IVP STA (11:15)
[2020-11-05 11:29] LABS: B. PARAPERTUSSIS- RESP PCR PAN NOT DETECTED; B. PERTUSSIS- RESP PCR PANEL NOT DETECTED; C. PNEUMONIAE- RESP PCR PANEL NOT DETECTED; CORONAVIRUS 229E-RESP PCR NOT DETECTED; CORONAVIRUS HKU1-RESP PCR NOT DETECTED; CORONAVIRUS NL63-RESP PCR NOT DETECTED; CORONAVIRUS OC43-RESP PCR NOT DETECTED; HUMAN METAPNEUMOVIRUS NOT DETECTED; INFLUENZA A- RESP PCR PANEL NOT DETECTED; INFLUENZA B - RESP PCR PANEL NOT DETECTED; M. PNEUMONIAE- RESP PCR PANEL NOT DETECTED; PARAINFLUENZA VIRUS 1 NOT DETECTED; PARAINFLUENZA VIRUS 2 NOT DETECTED; PARAINFLUENZA VIRUS 3 NOT DETECTED; PARAINFLUENZA VIRUS 4 NOT DETECTED; RHINOVIRUS/ENTEROVIRUS NOT DETECTED; RSV- RESP PCR PANEL NOT DETECTED; SARS-CoV-2 -RESP PCR PANEL NOT DETECTED
[2020-11-05 11:39] LABS: BILIRUBIN,URINE NEGATIVE (NEGATIVE); CLARITY,URINE CLEAR (CLEAR); GLUCOSE, URINE (UA) NEGATIVE (NEGATIVE); KETONES,URINE (UA) NEGATIVE (NEGATIVE); LEUKOCYTE ESTERASE, URINE NEGATIVE (NEGATIVE); NITRITE,URINE NEGATIVE (NEGATIVE); OCCULT BLOOD,URINE LARGE (NEGATIVE); PROTEIN,URINE NEGATIVE (NEGATIVE); UROBILINOGEN,URINE 0.2 (NORMAL) E.U./dL (NORMAL)
[2020-11-05 12:20] VITALS: BP 121/82
[2020-11-05 12:20] LABS: BACTERIA,URINE None Seen /HPF (None Seen); SQUAMOUS EPITHELIAL CELL,UR NONE SEEN (<= Few); WBC,URINE 0-3 /HPF (0-3)
== END 2020-11-05 12:46 | disposition home or self-care (01) ==
LOC: ED 08:43
DX: K52.9 Noninfective gastroenteritis and colitis, unspecified (principal); J32.0 Chronic maxillary sinusitis; F31.9 Bipolar disorder, unspecified; F41.9 Anxiety disorder, unspecified; F17.200 Nicotine dependence, unspecified, uncomplicated; Z20.822 Contact with and (suspected) exposure to COVID-19; Z79.899 Other long term (current) drug therapy
CPT/HCPCS: 36415; 74177; 80053; 81001; 83690; 85025; 87631; 96361; 96374; 96375; 99283; 99284; J2060; Q9967; 0202U; 81003; 87086

== ENCOUNTER 2020-11-06 11:17 | Emergency (ER) | payer MEDICARE, MEDICAID ==
[2020-11-06 12:08] LABS: BILIRUBIN,URINE NEGATIVE (NEGATIVE); GLUCOSE, URINE (UA) NEGATIVE (NEGATIVE); KETONES,URINE (UA) 15 mg/dL (NEGATIVE); LEUKOCYTE ESTERASE, URINE NEGATIVE (NEGATIVE); NITRITE,URINE NEGATIVE (NEGATIVE); OCCULT BLOOD,URINE NEGATIVE (NEGATIVE); PROTEIN,URINE TRACE mg/dL (NEGATIVE); UROBILINOGEN,URINE 1 (NORMAL) E.U./dL (NORMAL)
[2020-11-06 12:16] LABS: BASOPHILS # (AUTO) 0.1 10^3/uL (0.0-0.1); EOSINOPHILS # (AUTO) 0.1 10^3/uL (0.0-0.7); EOSINOPHILS % (AUTO) 0.7 %; HCT - HEMATOCRIT 44.2 % (42.0-52.0); HGB - HEMOGLOBIN 15.1 g/dL (14.0-18.0); LYMPHOCYTES % (AUTO) 20.5 %; MEAN CORPUSCULAR HEMOGLOBIN 30.9 pg (27.0-31.0); MEAN CORPUSCULAR HGB CONC 34.2 g/dL (32.0-36.0); MEAN CORPUSCULAR VOLUME 90.6 fL (80.0-94.0); MEAN PLATELET VOLUME 9.5 fL (7.4-11.4); MONOCYTES # (AUTO) 0.7 10^3/uL (0.0-1.0); MONOCYTES % (AUTO) 7.2 %; NEUTROPHILS # (AUTO) 6.8 10^3/uL (1.5-6.6); NEUTROPHILS % (AUTO) 70.3 %; PLT - PLATELET COUNT 302 10^3/uL (130-450); RED BLOOD COUNT 4.88 10^6/uL (4.70-6.10); RED CELL DISTRIBUTION WIDTH 13.3 % (12.0-15.0); WHITE BLOOD COUNT 9.7 x10^3/uL (4.8-10.8)
[2020-11-06 12:18] LABS: CLARITY,URINE CLEAR (CLEAR)
[2020-11-06] MEDS ORDERED: SODIUM CHLORIDE 0.9% 1,000 ML IV STA (12:20)
[2020-11-06] MEDS ORDERED: HALOPERIDOL 5 MG/ML VIAL IVP ONE (12:20)
[2020-11-06] MEDS ORDERED: KETOROLAC 15 MG/ML VIAL IVP STA (12:20)
--- NOTE | 2020-11-06 12:22 | ED Physician Documentation ---
PD HPI ABD PAIN - Stated complaint Stated Complaint: VOMITING - Chief complaint Chief Complaint: Abd Pain - History obtained from History obtained from: Patient - Additional information Additional information: 60-year-old gentleman got sick yesterday with nausea and vomiting, abdominal cramps, shakes and tingling throughout his body. This is a recurrent phenomenon previously attributed to cannabinoid hyperemesis syndrome. He also has psychiatric comorbidities. He does not think he ran out of any of his medications but is a little unsure. When asked if he was still using marijuana he stated "no I quit a long time ago." When asked to elaborate as to when he last used he states it has been a few days. He does find relief from hot showers. Review of Systems Ten Systems: 10 systems reviewed and negative Constitutional: reports: Sweats GI: reports: Abdominal Pain, Nausea, Vomiting, Diarrhea PD PAST MEDICAL HISTORY - Past Medical History Cardiovascular: None Respiratory: None Neuro: Headaches Endocrine/Autoimmune: None GI: None : None HEENT: None Psych: Depression, Anxiety, Bipolar disorder Musculoskeletal: Osteoarthritis Derm: None - Past Surgical History Past Surgical History: Yes General: Appendectomy Ortho: Shoulder arthroplasty HEENT: Tonsil/Adenoidectomy - Present Medications Home Medications: Ambulatory Orders Medication Instructions Recorded Confirmed Buspirone HCl 20 mg PO TID 10 Days #60 tab 09/10/20 Ondansetron Odt [Zofran] 4 mg TL Q6H PRN #10 tablet 09/10/20 Quetiapine Fumarate [Seroquel Xr] 300 mg PO HS 09/10/20 09/10/20 Quetiapine Fumarate [Seroquel Xr] 300 mg PO QPM 10 Days #10 tab 09/10/20 traZODone [Desyrel] 50 mg PO HS 09/10/20 09/10/20 Ondansetron Odt [Zofran] 4 mg TL Q6H PRN #10 tablet 11/05/20 metroNIDAZOLE [Flagyl] 500 mg PO BID #14 tablet 11/05/20 Buspirone HCl 2 tab PO TID PRN #10 tablet 11/06/20 Promethazine [Phenergan] 25 mg PO Q6H PRN #10 tab 11/06/20 - Allergies Allergies/Adverse Reactions: Allergies Allergy/AdvReac Type Severity Reaction Status Date / Time meloxicam Allergy Respiratory Verified 11/06/20 11:31 - Social History Does the pt smoke?: Yes Smoking Status: Current every day smoker Does the pt drink ETOH?: No Does the pt have substance abuse?: No - Immunizations Immunizations are current?: Yes - POLST Patient has POLST: No PD ED PE NORMAL - Vitals Vital signs reviewed: Yes - General General: Alert and oriented X 3, No acute distress - HEENT HEENT: PERRL, EOMI - Neck Neck: Supple, no meningeal sign, No bony TTP - Cardiac Cardiac: RRR, No murmur - Respiratory Respiratory: No respiratory distress, Clear bilaterally - Abdomen Abdomen: Normal bowel sounds, Soft, Non tender - Extremities Extremities: No deformity, No tenderness to palpate - Neuro Neuro: Alert and oriented X 3, Normal speech Results - Vitals Vitals: Vital Signs - 24 hr 11/06/20 11/06/20 11/06/20 11:29 12:23 13:48 Temperature 36.4 C L 36.5 C 37.0 C Heart Rate 79 80 80 Respiratory 20 20 20 Rate Blood Pressure 128/78 126/80 135/97 H O2 Saturation 98 98 98 Oxygen O2 Source Room air - Labs Labs: Laboratory Tests 11/06/20 11/06/20 11/06/20 11:50 12:11 12:11 WBC 9.7 RBC 4.88 Hgb 15.1 Hct 44.2 MCV 90.6 MCH 30.9 MCHC 34.2 RDW 13.3 Plt Count 302 MPV 9.5 Neut # (Auto) 6.8 H Lymph # (Auto) 2.0 Luce # (Auto) 0.7 Eos # (Auto) 0.1 Baso # (Auto) 0.1 Absolute Nucleated RBC 0.00 Nucleated RBC % 0.0 Sodium 136 Potassium 3.9 Chloride 108 Carbon Dioxide 20 L Anion Gap 8.0 BUN 18 Creatinine 0.9 Estimated GFR (MDRD) 86 L Glucose 94 Calcium 9.4 Total Bilirubin 0.8 AST 15 ALT 17 Alkaline Phosphatase 55 Total Protein 7.2 Albumin 4.5 Globulin 2.7 Albumin/Globulin Ratio 1.7 Lipase 41 Urine Color DARK YELLOW Urine Clarity CLEAR Urine pH 6.0 Ur Specific [place] >=1.030 H Urine Protein TRACE Urine Glucose (UA) NEGATIVE Urine Ketones 15 H Urine Occult Blood NEGATIVE Urine Nitrite NEGATIVE Urine Bilirubin NEGATIVE Urine Urobilinogen 1 (NORMAL) Ur Leukocyte Esterase NEGATIVE Ur Microscopic Review NOT INDICATED Urine Culture Comments NOT INDICATED PD MEDICAL DECISION MAKING - ED course ED course: 60-year-old gentleman with chronic anxiety, cannabinoid hyperemesis syndrome presents with exacerbation of same. After the administration of medications here he was feeling much better and passed a p.o. challenge. He was discharged. Subsequent to discharge came back to the triage desk stating that he was missing a prescription from us. He wanted a prescription for refill of his buspirone. He admits he ran out early. I had a long discussion with him and his , he gets frequent refills for this medication from the emergency department, discussed with him that it was not appropriate to continue to seek refills of this medication from the emergency department especially as he admits he ran out of it early. I agreed to give him a prescription for 10 with the understanding that all further refills must come from primary care. Departure - Departure Disposition: 01 Home, Self Care Clinical Impression: Nausea vomiting and diarrhea, Marijuana use, Cannabinoid hyperemesis syndrome Condition: Stable Record reviewed to determine appropriate education?: Yes Instructions: ED Nausea Vomiting Prescriptions: Buspirone HCl 2 tab PO TID PRN #10 tablet PRN Reason: Anxiety Promethazine [Phenergan] 25 mg PO Q6H PRN #10 tab PRN Reason: Nausea / Vomiting Comments: As discussed it is very likely that your symptoms are related to marijuana use despite having not used in the last few days. Once you quit marijuana I expect complete resolution of your symptoms, but that may take a few weeks. I am prescribing some medications for the interim. I encourage you to completely abstain from marijuana, I suspect if you do, your life will be much better. Follow-up with your primary care physician, next available appointment. Discharge Date/Time: 11/06/20 13:59
[2020-11-06 12:29] LABS: ALBUMIN 4.5 g/dL (3.2-5.5); ALBUMIN/GLOBULIN RATIO 1.7 (1.0-2.2); BILIRUBIN,TOTAL 0.8 mg/dL (0.2-1.0); CALCIUM 9.4 mg/dL (8.5-10.3); CREATININE 0.9 mg/dL (0.6-1.2); POTASSIUM 3.9 mmol/L (3.5-5.0); TOTAL PROTEIN 7.2 g/dL (6.7-8.2)
[2020-11-06 13:48] VITALS: BP 135/97
== END 2020-11-06 13:59 | disposition home or self-care (01) ==
LOC: ED 11:17
DX: R11.2 Nausea with vomiting, unspecified (principal); F12.90 Cannabis use, unspecified, uncomplicated; F41.8 Other specified anxiety disorders; F17.200 Nicotine dependence, unspecified, uncomplicated
CPT/HCPCS: 36415; 80053; 81001; 81003; 83690; 85025; 87086; 96374; 96375; 99284

== ENCOUNTER 2021-02-05 08:32 | Emergency (ER) | payer MEDICARE, MEDICAID ==
[2021-02-05] MEDS ORDERED: SODIUM CHLORIDE 0.9% 1,000 ML IV STA (09:01)
[2021-02-05] MEDS ORDERED: ONDANSETRON 4 MG/2 ML VIAL IVP STA (09:01)
--- NOTE | 2021-02-05 09:05 | ED Physician Documentation ---
PD HPI NVD - Stated complaint Stated Complaint: N/V - Chief complaint Chief Complaint: Abd Pain - Additonal information Additional information: Patient is a 60-year-old male presenting to the emergency department with 1 day history of nausea, vomiting, diarrhea. Endorses for multiple episodes of nonbloody nonbilious vomiting with associated nonbloody nonmucoid diarrhea since yesterday. Denies any unusual foods, travel, recent antibiotics. Denies any fever, chills, chest pain, shortness of breath, abdominal pain, new rash, new weakness/numbness/tingling in any extremity. Review of Systems Ten Systems: 10 systems reviewed and negative Constitutional: denies: Fever, Chills Eyes: denies: Loss of vision Ears: denies: Loss of hearing Nose: denies: Rhinorrhea / runny nose Throat: denies: Dental pain / toothache Cardiac: denies: Chest pain / pressure Respiratory: denies: Dyspnea GI: reports: Nausea, Vomiting, Diarrhea. denies: Abdominal Pain : denies: Dysuria Skin: denies: Rash Musculoskeletal: denies: Neck pain Neurologic: denies: Generalized weakness PD PAST MEDICAL HISTORY - Past Medical History Cardiovascular: None Respiratory: None Neuro: Headaches Endocrine/Autoimmune: None GI: None : None HEENT: None Psych: Depression, Anxiety, Bipolar disorder Musculoskeletal: Osteoarthritis Derm: None - Past Surgical History Past Surgical History: Yes General: Appendectomy Ortho: Shoulder arthroplasty HEENT: Tonsil/Adenoidectomy - Present Medications Home Medications: Ambulatory Orders Medication Instructions Recorded Confirmed Buspirone HCl 20 mg PO TID 10 Days #60 tab 09/10/20 Ondansetron Odt [Zofran] 4 mg TL Q6H PRN #10 tablet 09/10/20 Quetiapine Fumarate [Seroquel Xr] 300 mg PO HS 09/10/20 09/10/20 Quetiapine Fumarate [Seroquel Xr] 300 mg PO QPM 10 Days #10 tab 09/10/20 traZODone [Desyrel] 50 mg PO HS 09/10/20 09/10/20 Ondansetron Odt [Zofran] 4 mg TL Q6H PRN #10 tablet 11/05/20 metroNIDAZOLE [Flagyl] 500 mg PO BID #14 tablet 11/05/20 Buspirone HCl 2 tab PO TID PRN #10 tablet 11/06/20 Promethazine [Phenergan] 25 mg PO Q6H PRN #10 tab 11/06/20 Loperamide [Imodium] 2 mg PO ONCE #30 cap 02/05/21 Ondansetron Odt [Zofran] 4 mg TL Q6H PRN #10 tablet 02/05/21 - Allergies Allergies/Adverse Reactions: Allergies Allergy/AdvReac Type Severity Reaction Status Date / Time meloxicam Allergy Respiratory Verified 02/05/21 08:46 - Social History Does the pt smoke?: Yes Smoking Status: Current every day smoker Does the pt drink ETOH?: No Does the pt have substance abuse?: No - Immunizations Immunizations are current?: Yes - POLST Patient has POLST: No PD ED PE NORMAL - Vitals Vital signs reviewed: Yes (Tachycardic) - General General: Alert and oriented X 3 - HEENT HEENT: Atraumatic - Neck Neck: Supple, no meningeal sign, No JVD - Cardiac Cardiac: RRR, No murmur, No gallop, No rub - Respiratory Respiratory: No respiratory distress - Abdomen Abdomen: Soft, Non tender, Non distended - Male Male : Deferred - Rectal Rectal: Deferred - Derm Derm: Normal color - Extremities Extremities: No deformity - Neuro Neuro: Alert and oriented X 3, hide examiner 2-12 intact, No motor deficit Results - Vitals Vitals: Vital Signs - 24 hr 02/05/21 02/05/21 08:44 08:58 Temperature 36.6 C 36.5 C Heart Rate 103 H 102 H Respiratory 18 17 Rate Blood Pressure 126/83 H 126/80 O2 Saturation 95 100 Oxygen O2 Source Room air - Labs Labs: Laboratory Tests 02/05/21 02/05/21 02/05/21 09:15 09:15 09:15 WBC 9.1 RBC 5.07 Hgb 15.9 Hct 46.5 MCV 91.7 MCH 31.4 H MCHC 34.2 RDW 13.3 Plt Count 282 MPV 9.5 Neut # (Auto) 6.0 Lymph # (Auto) 2.0 Will # (Auto) 0.7 Eos # (Auto) 0.2 Baso # (Auto) 0.1 Absolute Nucleated RBC 0.00 Nucleated RBC % 0.0 PT 12.0 INR 1.1 Sodium 136 Potassium 3.8 Chloride 103 Carbon Dioxide 23 Anion Gap 10.0 BUN 13 Creatinine 1.2 Estimated GFR (MDRD) 62 L Glucose 100 Lactic Acid Calcium 9.6 Total Bilirubin 0.9 AST 21 ALT 24 Alkaline Phosphatase 61 CK-MB (CK-2) Total Protein 7.5 Albumin 4.7 Globulin 2.8 Albumin/Globulin Ratio 1.7 Lipase 38 Ethyl Alcohol < 5.0 02/05/21 02/05/21 09:15 09:15 WBC RBC Hgb Hct MCV MCH MCHC RDW Plt Count MPV Neut # (Auto) Lymph # (Auto) Will # (Auto) Eos # (Auto) Baso # (Auto) Absolute Nucleated RBC Nucleated RBC % PT INR Sodium Potassium Chloride Carbon Dioxide Anion Gap BUN Creatinine Estimated GFR (MDRD) Glucose Lactic Acid 1.6 Calcium Total Bilirubin AST ALT Alkaline Phosphatase CK-MB (CK-2) 1.7 Total Protein Albumin Globulin Albumin/Globulin Ratio Lipase Ethyl Alcohol PD MEDICAL DECISION MAKING - ED course Complexity details: reviewed results, re-evaluated patient, d/w patient ED course: To the emergency department 1 day history nausea, vomiting, diarrhea. Afebrile, hemodynamically stable. Denied any abdominal pain. Abdominal exam was benign. Labs obtained were within normal limits are nonactionable. Patient received Zofran, Ativan, Benadryl with significant symptomatic improvement. Was able to tolerate p.o. intake. Will discharge with ongoing course of Zofran and loperamide for use as needed. Otherwise clear return precautions and follow-up instructions were given prior to discharge. Departure - Departure Disposition: 01 Home, Self Care Clinical Impression: Diarrhea, Nausea vomiting and diarrhea Condition: Fair Instructions: ED Diet Vomiting Wwo Diarrhea Comments: Thank you for allowing us to care for you today at [facility]. All the lab work performed today was very reassuring. I will be discharging this to medication to take for your nausea and diarrhea. Please take these medicines as prescribed. Please follow-up with your primary care doctor as soon as you are able. If it anytime he have any new or worsening symptoms please not hesitate to return to the emergency department.
[2021-02-05] MEDS ORDERED: LORazepam 2 MG/ML VIAL IVP STA (09:18)
[2021-02-05] MEDS ORDERED: diphenhydrAMINE INJ 50 MG/ML VIAL IVP STA (09:18)
[2021-02-05 09:25] LABS: BASOPHILS # (AUTO) 0.1 10^3/uL (0.0-0.1); BASOPHILS % (AUTO) 1.1 %; EOSINOPHILS # (AUTO) 0.2 10^3/uL (0.0-0.7); EOSINOPHILS % (AUTO) 2.5 %; HCT - HEMATOCRIT 46.5 % (42.0-52.0); HGB - HEMOGLOBIN 15.9 g/dL (14.0-18.0); MEAN CORPUSCULAR HEMOGLOBIN 31.4 pg (27.0-31.0); MEAN CORPUSCULAR HGB CONC 34.2 g/dL (32.0-36.0); MEAN CORPUSCULAR VOLUME 91.7 fL (80.0-94.0); MEAN PLATELET VOLUME 9.5 fL (7.4-11.4); MONOCYTES # (AUTO) 0.7 10^3/uL (0.0-1.0); MONOCYTES % (AUTO) 7.4 %; NEUTROPHILS % (AUTO) 66.6 %; PLT - PLATELET COUNT 282 10^3/uL (130-450); RED BLOOD COUNT 5.07 10^6/uL (4.70-6.10); RED CELL DISTRIBUTION WIDTH 13.3 % (12.0-15.0); WHITE BLOOD COUNT 9.1 x10^3/uL (4.8-10.8)
[2021-02-05 09:43] LABS: ALBUMIN 4.7 g/dL (3.2-5.5); ALBUMIN/GLOBULIN RATIO 1.7 (1.0-2.2); ALKALINE PHOSPHATASE 61 IU/L (42-121); ALT ALANINE AMINOTRANSFERASE 24 IU/L (10-60); AST ASPARTATE AMINOTRANSFERASE 21 IU/L (10-42); BILIRUBIN,TOTAL 0.9 mg/dL (0.2-1.0); BUN - BLOOD UREA NITROGEN 13 mg/dL (6-20); CALCIUM 9.6 mg/dL (8.5-10.3); CARBON DIOXIDE - CO2 23 mmol/L (21-32); CHLORIDE 103 mmol/L (101-111); CREATININE 1.2 mg/dL (0.6-1.2); ETOH - ETHANOL < 5.0 mg/dL; GFR - MDRD 62 (>89); GLUCOSE 100 mg/dL (70-100); LIPASE 38 U/L (22-51); POTASSIUM 3.8 mmol/L (3.5-5.0); SODIUM 136 mmol/L (135-145); TOTAL PROTEIN 7.5 g/dL (6.7-8.2)
[2021-02-05 09:45] LABS: INR 1.1 (0.8-1.2)
[2021-02-05 10:56] VITALS: BP 115/78
== END 2021-02-05 11:08 | disposition home or self-care (01) ==
LOC: ED 08:32
DX: R11.2 Nausea with vomiting, unspecified (principal); R19.7 Diarrhea, unspecified; F17.200 Nicotine dependence, unspecified, uncomplicated
CPT/HCPCS: 36415; 80053; 82553; 83605; 83690; 85025; 85610; 96361; 96374; 96375; 99283; G0480; J1200; J2060; 80320

== ENCOUNTER 2021-04-14 10:04 | Emergency (ER) | payer MEDICARE, MEDICAID ==
[2021-04-14] MEDS ORDERED: busPIRone 5 MG TABLET PO SCH (11:00)
[2021-04-14 11:53] VITALS: BP 120/82
--- NOTE | 2021-04-14 12:03 | ED Physician Documentation ---
History of Present Illness - Stated complaint Stated Complaint: SOA/ALLERGIC REACTION - Chief complaint Chief Complaint: Resp - Additonal information Additional information: 61yr-old male presenting to the emergency department with shortness of breath and "panic attack". Reports has been out of his buspirone x1 day. Since that time is felt extreme anxiety, jitteriness, difficulty focusing and shortness of breath. States he feels as though he is hyperventilating constantly. Denies suicidal or homicidal ideation. Yesika has not yet spoken to his primary care doctor about having his regular medications refilled. Denies fever, chills, chest pain, abdominal pain, nausea, vomiting, diarrhea, constipation. Review of Systems Ten Systems: 10 systems reviewed and negative Constitutional: denies: Fever Eyes: denies: Loss of vision Ears: denies: Loss of hearing Nose: denies: Rhinorrhea / runny nose Throat: denies: Dental pain / toothache Cardiac: denies: Chest pain / pressure GI: denies: Abdominal Pain, Nausea, Vomiting, Diarrhea Musculoskeletal: denies: Neck pain Neurologic: denies: Generalized weakness Psychiatric: reports: Anxiety. denies: Depressed, Suicidal, Delusions PD PAST MEDICAL HISTORY - Past Medical History Cardiovascular: None Respiratory: None Neuro: Headaches Endocrine/Autoimmune: None GI: None : None HEENT: None Psych: Depression, Anxiety, Bipolar disorder Musculoskeletal: Osteoarthritis Derm: None - Past Surgical History Past Surgical History: Yes General: Appendectomy Ortho: Shoulder arthroplasty HEENT: Tonsil/Adenoidectomy - Present Medications Home Medications: Ambulatory Orders Medication Instructions Recorded Confirmed Buspirone HCl 20 mg PO TID 10 Days #60 tab 09/10/20 Ondansetron Odt [Zofran] 4 mg TL Q6H PRN #10 tablet 09/10/20 Quetiapine Fumarate [Seroquel Xr] 300 mg PO HS 09/10/20 09/10/20 Quetiapine Fumarate [Seroquel Xr] 300 mg PO QPM 10 Days #10 tab 09/10/20 traZODone [Desyrel] 50 mg PO HS 09/10/20 09/10/20 Ondansetron Odt [Zofran] 4 mg TL Q6H PRN #10 tablet 11/05/20 metroNIDAZOLE [Flagyl] 500 mg PO BID #14 tablet 11/05/20 Buspirone HCl 2 tab PO TID PRN #10 tablet 11/06/20 Promethazine [Phenergan] 25 mg PO Q6H PRN #10 tab 11/06/20 Loperamide [Imodium] 2 mg PO ONCE #30 cap 02/05/21 Ondansetron Odt [Zofran] 4 mg TL Q6H PRN #10 tablet 02/05/21 busPIRone [Buspar] 15 mg PO BID #6 tablet 04/14/21 - Allergies Allergies/Adverse Reactions: Allergies Allergy/AdvReac Type Severity Reaction Status Date / Time meloxicam Allergy Respiratory Verified 04/14/21 10:11 - Social History Does the pt smoke?: Yes Smoking Status: Current every day smoker Does the pt drink ETOH?: No Does the pt have substance abuse?: No - Immunizations Immunizations are current?: Yes - POLST Patient has POLST: No PD ED PE NORMAL - Vitals Vital signs reviewed: Yes - General General: Other (With extremely anxious affect) - HEENT HEENT: Atraumatic - Neck Neck: Supple, no meningeal sign - Cardiac Cardiac: RRR - Respiratory Respiratory: No respiratory distress - Abdomen Abdomen: Normal bowel sounds - Male Male : Deferred - Rectal Rectal: Deferred - Back Back: No CVA TTP - Derm Derm: Normal color - Extremities Extremities: No deformity - Neuro Neuro: Alert and oriented X 3, bingo caller 2-12 intact, No motor deficit Results - Vitals Vitals: Vital Signs - 24 hr 04/14/21 04/14/21 04/14/21 10:06 10:11 11:53 Temperature 36.0 C L 36.9 C Heart Rate 113 H 107 H 90 Respiratory 24 22 16 Rate Blood Pressure 136/87 H 130/88 H 120/82 H O2 Saturation 99 97 96 Oxygen O2 Source Room air PD MEDICAL DECISION MAKING - ED course Complexity details: reviewed old records, reviewed results ED course: Old male presenting with anxiety after running out of his regularly prescribed buspirone. Afebrile, hemodynamically stable. Clear aeration in all lung guevara. Given single dose of 30mg buspirone in ED with complete resolution of all symptoms. Will fill 2 more doses of his regular busirone for use until he has a chance to follow up with his PCP. Otherwise clear return precautions given prior to discharge. Departure - Departure Disposition: 01 Home, Self Care Clinical Impression: Anxiety, Medication refill Condition: Good Instructions: ED Panic Attack Prescriptions: busPIRone [Buspar] 15 mg PO BID #6 tablet Comments: Thank you for allowing us to care for you today at [facility]. Please contact your primary care doctor 1st thing on Friday in order to discuss your current medications. Your primary care doctor is the individual to speak with about your anxiety medications. If it anytime you have any new or worsening symptoms please not hesitate to return. Discharge Date/Time: 04/14/21 12:06
== END 2021-04-14 12:06 | disposition home or self-care (01) ==
LOC: ED 10:04
DX: Z76.0 Encounter for issue of repeat prescription (principal); F41.9 Anxiety disorder, unspecified; F17.200 Nicotine dependence, unspecified, uncomplicated
CPT/HCPCS: 99282; 99283; A9270

== ENCOUNTER 2021-04-17 09:16 | Emergency (ER) | payer MEDICARE, MEDICAID ==
[2021-04-17 10:12] LABS: BASOPHILS # (AUTO) 0.1 10^3/uL (0.0-0.1); BASOPHILS % (AUTO) 0.9 %; EOSINOPHILS # (AUTO) 0.2 10^3/uL (0.0-0.7); EOSINOPHILS % (AUTO) 1.2 %; HCT - HEMATOCRIT 47.4 % (42.0-52.0); HGB - HEMOGLOBIN 16.6 g/dL (14.0-18.0); LYMPHOCYTES # (AUTO) 2.8 10^3/uL (1.5-3.5); MEAN CORPUSCULAR HEMOGLOBIN 31.4 pg (27.0-31.0); MEAN CORPUSCULAR VOLUME 89.8 fL (80.0-94.0); MEAN PLATELET VOLUME 9.9 fL (7.4-11.4); MONOCYTES # (AUTO) 1.1 10^3/uL (0.0-1.0); MONOCYTES % (AUTO) 7.6 %; NEUTROPHILS # (AUTO) 10.3 10^3/uL (1.5-6.6); PLT - PLATELET COUNT 392 10^3/uL (130-450); RED BLOOD COUNT 5.28 10^6/uL (4.70-6.10); RED CELL DISTRIBUTION WIDTH 13.3 % (12.0-15.0); WHITE BLOOD COUNT 14.5 x10^3/uL (4.8-10.8)
[2021-04-17 10:27] LABS: ALBUMIN 4.5 g/dL (3.2-5.5); ALBUMIN/GLOBULIN RATIO 1.3 (1.0-2.2); BILIRUBIN,TOTAL 0.9 mg/dL (0.2-1.0); CALCIUM 9.5 mg/dL (8.5-10.3); POTASSIUM 3.8 mmol/L (3.5-5.0); TOTAL PROTEIN 7.9 g/dL (6.7-8.2)
[2021-04-17 10:43] VITALS: BP 109/78
[2021-04-17] MEDS ORDERED: busPIRone 5 MG TABLET PO STA (10:53)
[2021-04-17] MEDS ORDERED: ONDANSETRON 4 MG/2 ML VIAL IVP STA (11:12)
--- NOTE | 2021-04-17 11:12 | ED Physician Documentation ---
PD HPI NVD - Stated complaint Stated Complaint: N/V,ANXIETY - Chief complaint Chief Complaint: Abd Pain - History obtained from History obtained from: Patient - History of Present Illness Timing - onset: Yesterday Timing - duration: Days (2) Timing - details: Gradual onset, Still present Associated symptoms: Abdominal pain, Other (vomiting, diarrhea, dizziness, anxiety, abdominal pain, paranoia) Contributing factors: Other (ran out of buspar) Similar symptoms before: Diagnosis (buspar withdrawal, canabis hyperemesis) Recently seen: Emergency Dept - Additonal information Additional information: 61-year-old male with a history of anxiety who has been on BuSpar has run out of his BuSpar and has developed again symptoms of anxiety nausea vomiting diarrhea and shakiness. He has now recognized that he is dependent on his BuSpar and if he does not take it he will feel horrible the way he feels today. He does have a primary care doctor Dr. Gaming. She is in [place] and the patient has not seen her in some time. He does not have a prescription waiting for him. Review of Systems Constitutional: denies: Fever Nose: reports: Congestion Cardiac: reports: Palpitations Respiratory: reports: Dyspnea. denies: Cough GI: reports: Abdominal Pain, Nausea, Vomiting, Diarrhea PD PAST MEDICAL HISTORY - Past Medical History Past Medical History: Yes Cardiovascular: None Respiratory: None Neuro: Headaches Endocrine/Autoimmune: None GI: None : None HEENT: None Psych: Depression, Anxiety, Bipolar disorder Musculoskeletal: Osteoarthritis Derm: None - Past Surgical History Past Surgical History: Yes General: Appendectomy Ortho: Shoulder arthroplasty HEENT: Tonsil/Adenoidectomy - Present Medications Home Medications: Ambulatory Orders Medication Instructions Recorded Confirmed Quetiapine Fumarate [Seroquel Xr] 300 mg PO HS 09/10/20 04/17/21 busPIRone [Buspar] 15 mg PO BID #6 tablet 04/14/21 04/17/21 Buspirone HCl 15 mg PO BID #14 tablet 04/17/21 Ondansetron Odt [Zofran] 4 mg TL Q6H PRN #10 tablet 04/17/21 lamoTRIgine [Lamictal Xr] 25 mg PO DAILY 04/17/21 04/17/21 - Allergies Allergies/Adverse Reactions: Allergies Allergy/AdvReac Type Severity Reaction Status Date / Time meloxicam Allergy Respiratory Verified 04/17/21 09:58 - Social History Does the pt smoke?: Yes Smoking Status: Current every day smoker Does the pt drink ETOH?: No Does the pt have substance abuse?: No - Immunizations Immunizations are current?: Yes - POLST Patient has POLST: No PD ED PE NORMAL - Vitals Vital signs reviewed: Yes (tachypneic and hypertensive mild ) - General General: No acute distress, Well developed/nourished, Other (appears anxious ) - HEENT HEENT: Atraumatic, PERRL, EOMI - Neck Neck: Supple, no meningeal sign, No bony TTP - Cardiac Cardiac: RRR, No murmur - Respiratory Respiratory: Clear bilaterally, Other (tachypneic at rest) - Abdomen Abdomen: Soft, Non tender - Back Back: No CVA TTP, No spinal TTP - Derm Derm: Normal color, Warm and dry, No rash - Extremities Extremities: No deformity, No edema - Neuro Neuro: Alert and oriented X 3, medical authorization specialist 2-12 intact, No motor deficit, No sensory deficit, Normal speech Eye Opening: Spontaneous Motor: Obeys Commands Verbal: Oriented GCS Score: 15 - Psych Psych: Normal mood, Normal affect Results - Vitals Vitals: Vital Signs - 24 hr 04/17/21 04/17/21 04/17/21 09:58 10:12 10:42 Temperature 36.1 C L Heart Rate 72 71 71 Respiratory 30 H 20 21 Rate Blood Pressure 120/81 H 124/79 109/78 O2 Saturation 99 97 94 Oxygen O2 Source Room air - Labs Labs: Laboratory Tests 04/17/21 04/17/21 10:08 10:08 WBC 14.5 H RBC 5.28 Hgb 16.6 Hct 47.4 MCV 89.8 MCH 31.4 H MCHC 35.0 RDW 13.3 Plt Count 392 MPV 9.9 Neut # (Auto) 10.3 H Lymph # (Auto) 2.8 Carver # (Auto) 1.1 H Eos # (Auto) 0.2 Baso # (Auto) 0.1 Absolute Nucleated RBC 0.00 Nucleated RBC % 0.0 Sodium 131 L Potassium 3.8 Chloride 99 L Carbon Dioxide 21 Anion Gap 11.0 BUN 16 Creatinine 1.0 Estimated GFR (MDRD) 76 L Glucose 124 H Calcium 9.5 Total Bilirubin 0.9 AST 19 ALT 25 Alkaline Phosphatase 59 Total Protein 7.9 Albumin 4.5 Globulin 3.4 Albumin/Globulin Ratio 1.3 Lipase 65 H PD MEDICAL DECISION MAKING - ED course Complexity details: reviewed old records, reviewed results, re-evaluated patient, considered differential, d/w patient ED course: Following up with [id number] male with chronic anxiety and depression is on BuSpar and he has been having some trouble [facility] doctor to have this medication refilled. He has been refilled out of the emergency department and each time that he comes in he has marked improvement with the medication and when he runs out he has symptoms again of withdrawal. He has symptoms of multiple systems. He is administered BuSpar here today I have recommended the patient to follow-up with his primary care doctor today to obtain his regular prescription for his medication. Today he is prescribed 1 week of medication. Departure - Departure Disposition: Home, Self Care Clinical Impression: Benzodiazepine withdrawal with delirium Condition: Stable Instructions: ED Withdrawal Benzodiazepine Follow-Up: GEORGE GAMING ARNP [Primary Care Provider] - John Tucker MD [Provider Admit Priv/Credential] - Prescriptions: Buspirone HCl 15 mg PO BID #14 tablet Ondansetron Odt [Zofran] 4 mg TL Q6H PRN #10 tablet PRN Reason: Nausea / Vomiting Comments: Yash, today it looks like you are suffering again from withdrawal of benzodiazepine. This is a very unpleasant situation for most people and the recommendation is to contact your primary care physician today by telephone to have your medication refilled. If you are unable to contact your primary care doctor or you decide to have a new primary care doctor I have recommended Dr. Tucker. He is in [place].Today I have e-scribed the buspar and something for nausea to [facility] in [place]. Discharge Date/Time: 04/17/21 11:41
== END 2021-04-17 11:41 | disposition home or self-care (01) ==
LOC: ED 09:16
DX: F19.231 Other psychoactive substance dependence with withdrawal delirium (principal); F41.9 Anxiety disorder, unspecified; F17.200 Nicotine dependence, unspecified, uncomplicated
CPT/HCPCS: 36415; 80053; 83690; 85025; 99283; A9270

== ENCOUNTER 2021-05-06 14:44 | Emergency (ER) | payer MEDICARE, MEDICAID ==
[2021-05-06] MEDS ORDERED: SODIUM CHLORIDE 0.9% 1,000 ML IV STA (14:58)
[2021-05-06] MEDS ORDERED: DROPERIDOL 5 MG/2 ML VIAL IVP STA (14:58)
--- NOTE | 2021-05-06 15:01 | ED Physician Documentation ---
PD HPI ABD PAIN - Stated complaint Stated Complaint: ABD PAIN - Chief complaint Chief Complaint: Abd Pain - History obtained from History obtained from: Patient - Additional information Additional information: 61-year-old gentleman with history of depression, anxiety, marijuana and tobacco use and medication mismanagement who has frequent bouts of abdominal pain with previously negative work-ups. States that he has epigastric pain, nausea, and a sense of impending doom and has been pacing. He admits he ran out of his BuSpar. Of note frequently in the past we have been concerned about him over using his BuSpar and running out of his prescriptions early and presenting to the emergency department for early refills. Most recently got a refill from here on April [address] Connor. States he is out. States he has a prescription but it will not be filled until tomorrow or the next day from his primary care physician in [place] who last saw about a month ago. States he stopped using marijuana. Pain does get better with heat, showers and baths. No changes in bowel movements. Review of Systems Ten Systems: 10 systems reviewed and negative Constitutional: reports: Chills, Sweats. denies: Fever Cardiac: denies: Chest pain / pressure, Palpitations Respiratory: denies: Dyspnea, Cough PD PAST MEDICAL HISTORY - Past Medical History Cardiovascular: None Respiratory: None Neuro: Headaches Endocrine/Autoimmune: None GI: None : None HEENT: None Psych: Depression, Anxiety, Bipolar disorder Musculoskeletal: Osteoarthritis Derm: None - Past Surgical History Past Surgical History: Yes General: Appendectomy Ortho: Shoulder arthroplasty HEENT: Tonsil/Adenoidectomy - Present Medications Home Medications: Ambulatory Orders Medication Instructions Recorded Confirmed Quetiapine Fumarate [Seroquel Xr] 300 mg PO HS 09/10/20 04/17/21 busPIRone [Buspar] 15 mg PO BID #6 tablet 04/14/21 04/17/21 Buspirone HCl 15 mg PO BID #14 tablet 04/17/21 Ondansetron Odt [Zofran] 4 mg TL Q6H PRN #10 tablet 04/17/21 lamoTRIgine [Lamictal Xr] 25 mg PO DAILY 04/17/21 04/17/21 - Allergies Allergies/Adverse Reactions: Allergies Allergy/AdvReac Type Severity Reaction Status Date / Time meloxicam Allergy Respiratory Verified 05/06/21 14:53 - Social History Does the pt smoke?: Yes Smoking Status: Current every day smoker Does the pt drink ETOH?: No Does the pt have substance abuse?: No - Immunizations Immunizations are current?: Yes - POLST Patient has POLST: No PD ED PE NORMAL - Vitals Vital signs reviewed: Yes - General General: Alert and oriented X 3, Other (Appears anxious but otherwise in no distress) - Cardiac Cardiac: RRR, No murmur - Respiratory Respiratory: No respiratory distress, Clear bilaterally - Abdomen Abdomen: Normal bowel sounds, Soft, Non tender - Back Back: No CVA TTP, No spinal TTP - Derm Derm: Normal color, Warm and dry - Extremities Extremities: No edema, No calf tenderness / cord - Neuro Neuro: Alert and oriented X 3, Normal speech Results - Vitals Vitals: Vital Signs - 24 hr 05/06/21 05/06/21 05/06/21 14:53 16:58 17:33 Temperature 36.9 C Heart Rate 108 H 91 92 Respiratory 20 18 20 Rate Blood Pressure 145/97 H 135/87 H 134/85 H O2 Saturation 96 94 95 Oxygen O2 Source Room air - Labs Labs: Laboratory Tests 05/06/21 05/06/21 15:03 15:08 Sodium 136 Potassium 3.9 Chloride 106 Carbon Dioxide 20 L Anion Gap 10.0 BUN 20 Creatinine 1.2 Estimated GFR (MDRD) 62 L Glucose 120 H Calcium 9.4 Magnesium 2.0 Total Bilirubin 0.5 AST 25 ALT 52 Alkaline Phosphatase 61 Total Protein 7.5 Albumin 4.5 Globulin 3.0 Albumin/Globulin Ratio 1.5 Lipase 58 H Urine Opiates Screen NEGATIVE Ur Oxycodone Screen NEGATIVE Urine Methadone Screen NEGATIVE Ur Propoxyphene Screen NEGATIVE Ur Barbiturates Screen NEGATIVE Ur Tricyclics Screen POSITIVE H Ur Phencyclidine Scrn NEGATIVE Ur Amphetamine Screen NEGATIVE U Methamphetamines Scrn NEGATIVE U Benzodiazepines Scrn NEGATIVE Urine Cocaine Screen NEGATIVE U Cannabinoids Screen POSITIVE H PD MEDICAL DECISION MAKING - ED course ED course: 61-year-old gentleman presents with exacerbation of chronic recurrent abdominal pain associate with significant anxiety with recurrent problems with running out of his prescription for BuSpar early and ongoing marijuana use. He has a benign examination. He was administered divided doses of medications here with out claimed improvement although appeared very comfortable. He continually stated that he did not know he had received any medications. Given the lack of pertinent positive findings and benign examination he was discharged after symptom control. Departure - Departure Disposition: 01 Home, Self Care Clinical Impression: Marijuana use Abdominal pain Qualifiers: Abdominal location: generalized Qualified Code(s): R10.84 - Generalized abdominal pain Condition: Good Instructions: ED Abdominal Pain Unkn Cause Male Comments: Still marijuana in your system, still continue to abstain from this as it may be related to your symptoms. All refills for your BuSpar and other medications need to come from your primary care physician. Return if worsening. Do not drive today. Discharge Date/Time: 05/06/21 18:11
[2021-05-06 15:24] LABS: MUDS CUTOFF CONCENTRATIONS CUTOFF CONC BELOW:
[2021-05-06 15:27] LABS: ALBUMIN 4.5 g/dL (3.2-5.5); ALBUMIN/GLOBULIN RATIO 1.5 (1.0-2.2); BILIRUBIN,TOTAL 0.5 mg/dL (0.2-1.0); CALCIUM 9.4 mg/dL (8.5-10.3); CREATININE 1.2 mg/dL (0.6-1.2); POTASSIUM 3.9 mmol/L (3.5-5.0); TOTAL PROTEIN 7.5 g/dL (6.7-8.2)
[2021-05-06] MEDS ORDERED: KETOROLAC 15 MG/ML VIAL IVP STA (15:32)
[2021-05-06] MEDS ORDERED: LORazepam 2 MG/ML VIAL IVP STA (15:32)
[2021-05-06 15:35] LABS: AMPHETAMINE SCREEN,URINE NEGATIVE (NEGATIVE); BARBITURATE SCREEN,UR NEGATIVE (NEGATIVE); BENZODIAZEPINES SCREEN, URINE NEGATIVE (NEGATIVE); COCAINE SCREEN URINE NEGATIVE (NEGATIVE); METHADONE SCREEN, URINE NEGATIVE (NEGATIVE); METHAMPHETAMINES SCREEN, URINE NEGATIVE (NEGATIVE); OPIATE SCREEN, URINE NEGATIVE (NEGATIVE); OXYCODONE SCREEN, URINE NEGATIVE (NEGATIVE); PROPOXYPHENE SCREEN, URINE NEGATIVE (NEGATIVE); THC CANNABINOID SCREEN, URINE POSITIVE (NEGATIVE); TRICYCLIC ANTIDEPRESSANT,URINE POSITIVE (NEGATIVE)
[2021-05-06] MEDS ORDERED: busPIRone 5 MG TABLET PO STA (16:21)
[2021-05-06] MEDS ORDERED: DICYCLOMINE 10 MG CAPSULE PO STA (16:21)
[2021-05-06] MEDS ORDERED: HYDROmorphone 1 MG/ML CARPUJECT IVP STA (17:22)
[2021-05-06 17:34] VITALS: BP 134/85
== END 2021-05-06 18:11 | disposition home or self-care (01) ==
LOC: ED 14:44
DX: R10.84 Generalized abdominal pain (principal); Z72.0 Tobacco use
CPT/HCPCS: 36415; 80053; 80306; 83690; 83735; 96374; 96375; 99282; 99285; A9270; J1170; J2060

== ENCOUNTER 2021-05-18 11:45 | Emergency (ER) | payer MEDICARE, MEDICAID ==
[2021-05-18 12:10] LABS: BASOPHILS # (AUTO) 0.1 10^3/uL (0.0-0.1); BASOPHILS % (AUTO) 0.8 %; EOSINOPHILS # (AUTO) 0.3 10^3/uL (0.0-0.7); EOSINOPHILS % (AUTO) 2.1 %; HCT - HEMATOCRIT 42.2 % (42.0-52.0); HGB - HEMOGLOBIN 14.5 g/dL (14.0-18.0); LYMPHOCYTES # (AUTO) 2.1 10^3/uL (1.5-3.5); LYMPHOCYTES % (AUTO) 16.9 %; MEAN CORPUSCULAR HEMOGLOBIN 31.5 pg (27.0-31.0); MEAN CORPUSCULAR HGB CONC 34.4 g/dL (32.0-36.0); MEAN CORPUSCULAR VOLUME 91.5 fL (80.0-94.0); MEAN PLATELET VOLUME 9.6 fL (7.4-11.4); MONOCYTES # (AUTO) 0.9 10^3/uL (0.0-1.0); MONOCYTES % (AUTO) 7.1 %; NEUTROPHILS # (AUTO) 8.8 10^3/uL (1.5-6.6); NEUTROPHILS % (AUTO) 72.7 %; PLT - PLATELET COUNT 317 10^3/uL (130-450); RED BLOOD COUNT 4.61 10^6/uL (4.70-6.10); RED CELL DISTRIBUTION WIDTH 13.8 % (12.0-15.0); WHITE BLOOD COUNT 12.2 x10^3/uL (4.8-10.8)
[2021-05-18 12:20] LABS: MUDS CUTOFF CONCENTRATIONS CUTOFF CONC BELOW:
[2021-05-18 12:31] LABS: ALBUMIN 4.3 g/dL (3.2-5.5); ALBUMIN/GLOBULIN RATIO 1.4 (1.0-2.2); BILIRUBIN,TOTAL 0.5 mg/dL (0.2-1.0); CALCIUM 9.5 mg/dL (8.5-10.3); POTASSIUM 3.7 mmol/L (3.5-5.0); TOTAL PROTEIN 7.3 g/dL (6.7-8.2)
[2021-05-18] MEDS ORDERED: ONDANSETRON 4 MG/2 ML VIAL IVP STA (12:32)
[2021-05-18] MEDS ORDERED: SODIUM CHLORIDE 0.9% 1,000 ML IV STA (12:32)
--- NOTE | 2021-05-18 12:32 | ED Physician Documentation ---
PD HPI ABD PAIN - Stated complaint Stated Complaint: NAUSEA/VOMITTING - Chief complaint Chief Complaint: Abd Pain - History obtained from History obtained from: Patient - Additional information Additional information: 61yo male with hx depression/anxiety. 24 hour of N/V/D with intermittent abd cramping which seems to precede the diarrhea. 3 total episodes of diarrhea without blood, just watery. On further history, as in prior visits, he does note that he ran out of his BuSpar 2 days ago. He seems to have very poor insight as to the process of refilling his medications and taking them appropriately as he recurrently runs out of his BuSpar early and then feels miserable and this causes more anxiety and more vomiting. Review of Systems Ten Systems: 10 systems reviewed and negative Constitutional: reports: Sweats. denies: Fever, Chills GI: reports: Abdominal Pain, Nausea, Vomiting, Diarrhea : denies: Dysuria, Frequency, Hesitancy PD PAST MEDICAL HISTORY - Past Medical History Cardiovascular: None Respiratory: None Neuro: Headaches Endocrine/Autoimmune: None GI: None : None HEENT: None Psych: Depression, Anxiety, Bipolar disorder Musculoskeletal: Osteoarthritis Derm: None - Past Surgical History Past Surgical History: Yes General: Appendectomy Ortho: Shoulder arthroplasty HEENT: Tonsil/Adenoidectomy - Present Medications Home Medications: Ambulatory Orders Medication Instructions Recorded Confirmed Quetiapine Fumarate [Seroquel Xr] 300 mg PO HS 09/10/20 05/18/21 busPIRone [Buspar] 15 mg PO BID #6 tablet 04/14/21 05/18/21 Ondansetron Odt [Zofran] 4 mg TL Q6H PRN #10 tablet 05/18/21 - Allergies Allergies/Adverse Reactions: Allergies Allergy/AdvReac Type Severity Reaction Status Date / Time meloxicam Allergy Respiratory Verified 05/18/21 11:52 - Social History Does the pt smoke?: Yes Smoking Status: Current every day smoker Does the pt drink ETOH?: No Does the pt have substance abuse?: No - Immunizations Immunizations are current?: Yes - POLST Patient has POLST: No PD ED PE NORMAL - Vitals Vital signs reviewed: Yes - General General: Alert and oriented X 3, No acute distress - HEENT HEENT: Other (dry mucous membranes) - Neck Neck: Supple, no meningeal sign, No bony TTP - Cardiac Cardiac: RRR, No murmur - Respiratory Respiratory: No respiratory distress, Clear bilaterally - Abdomen Abdomen: Normal bowel sounds, Soft, Non tender - Back Back: No CVA TTP, No spinal TTP - Derm Derm: Normal color, Warm and dry - Extremities Extremities: No edema, No calf tenderness / cord - Neuro Neuro: Alert and oriented X 3, Normal speech - Psych Psych: Normal mood, Normal affect Results - Vitals Vitals: Vital Signs - 24 hr 05/18/21 05/18/21 11:49 13:53 Temperature 36.3 C L Heart Rate 76 Respiratory 18 20 Rate Blood Pressure 150/84 H 138/80 H O2 Saturation 95 Oxygen O2 Source Room air - Labs Labs: Laboratory Tests 05/18/21 05/18/21 05/18/21 12:01 12:01 12:15 WBC 12.2 H RBC 4.61 L Hgb 14.5 Hct 42.2 MCV 91.5 MCH 31.5 H MCHC 34.4 RDW 13.8 Plt Count 317 MPV 9.6 Neut # (Auto) 8.8 H Lymph # (Auto) 2.1 [facility] [facility] # (Auto) 0.9 Eos # (Auto) 0.3 Baso # (Auto) 0.1 Absolute Nucleated RBC 0.00 Nucleated RBC % 0.0 Sodium 136 Potassium 3.7 Chloride 104 Carbon Dioxide 21 Anion Gap 11.0 BUN 13 Creatinine 1.0 Estimated GFR (MDRD) 76 L Glucose 111 H Calcium 9.5 Total Bilirubin 0.5 AST 17 ALT 18 Alkaline Phosphatase 60 Total Protein 7.3 Albumin 4.3 Globulin 3.0 Albumin/Globulin Ratio 1.4 Lipase 45 Urine Color YELLOW Urine Clarity CLEAR Urine pH 5.5 Ur Specific [place] >=1.030 H Urine Protein NEGATIVE Urine Glucose (UA) NEGATIVE Urine Ketones NEGATIVE Urine Occult Blood NEGATIVE Urine Nitrite NEGATIVE Urine Bilirubin NEGATIVE Urine Urobilinogen 0.2 (NORMAL) Ur Leukocyte Esterase NEGATIVE Ur Microscopic Review NOT INDICATED Urine Culture Comments NOT INDICATED Urine Opiates Screen NEGATIVE Ur Oxycodone Screen NEGATIVE Urine Methadone Screen NEGATIVE Ur Propoxyphene Screen NEGATIVE Ur Barbiturates Screen NEGATIVE Ur Tricyclics Screen NEGATIVE Ur Phencyclidine Scrn NEGATIVE Ur Amphetamine Screen NEGATIVE U Methamphetamines Scrn NEGATIVE U Benzodiazepines Scrn NEGATIVE Urine Cocaine Screen NEGATIVE U Cannabinoids Screen POSITIVE H PD MEDICAL DECISION MAKING - ED course ED course: 61-year-old gentleman with recurrent nausea, vomiting, and diarrhea associated with running out of his buspirone early and this is a recurrent issue for him. He has poor insight as to why he runs out of his medications early but discussed with him that he should either have his dispenses medications or get a daily medication tracker. He was medicated here with IV fluids, Zofran and Ativan with good relief although continued to ask Repeatedly for his buspirone despite being told that we would not refill or dispense it. Passed an oral challenge on reevaluation prior to discharge. Departure - Departure Disposition: 01 Home, Self Care Clinical Impression: Cannabinoid hyperemesis syndrome, Nausea vomiting and diarrhea, Prescription drug abuse Condition: Good Record reviewed to determine appropriate education?: Yes Instructions: ED Nausea Vomiting Prescriptions: Ondansetron Odt [Zofran] 4 mg TL Q6H PRN #10 tablet PRN Reason: Nausea / Vomiting Comments: By running out of your buspirone early, you are abusing the medication inappropriately. As discussed, the emergency department can no longer refill your buspirone. You need to be careful not to over take it in the future, running out of it early is just making you miserable repeatedly. Return for new or worsening symptoms. Follow-up with your primary care physician, next available appointment. I did send a prescription for nausea medicine to [facility] in [place].
[2021-05-18] MEDS ORDERED: LORazepam 2 MG/ML VIAL IVP STA (12:38)
[2021-05-18 12:39] LABS: BILIRUBIN,URINE NEGATIVE (NEGATIVE); GLUCOSE, URINE (UA) NEGATIVE (NEGATIVE); KETONES,URINE (UA) NEGATIVE (NEGATIVE); LEUKOCYTE ESTERASE, URINE NEGATIVE (NEGATIVE); NITRITE,URINE NEGATIVE (NEGATIVE); OCCULT BLOOD,URINE NEGATIVE (NEGATIVE); PH,URINE 5.5 PH (5.0-7.5); PROTEIN,URINE NEGATIVE (NEGATIVE); UROBILINOGEN,URINE 0.2 (NORMAL) E.U./dL (NORMAL)
[2021-05-18 12:41] LABS: CLARITY,URINE CLEAR (CLEAR)
[2021-05-18 13:01] LABS: AMPHETAMINE SCREEN,URINE NEGATIVE (NEGATIVE); BARBITURATE SCREEN,UR NEGATIVE (NEGATIVE); BENZODIAZEPINES SCREEN, URINE NEGATIVE (NEGATIVE); COCAINE SCREEN URINE NEGATIVE (NEGATIVE); METHADONE SCREEN, URINE NEGATIVE (NEGATIVE); METHAMPHETAMINES SCREEN, URINE NEGATIVE (NEGATIVE); OPIATE SCREEN, URINE NEGATIVE (NEGATIVE); OXYCODONE SCREEN, URINE NEGATIVE (NEGATIVE); PROPOXYPHENE SCREEN, URINE NEGATIVE (NEGATIVE); TRICYCLIC ANTIDEPRESSANT,URINE NEGATIVE (NEGATIVE)
[2021-05-18 13:36] LABS: THC CANNABINOID SCREEN, URINE POSITIVE (NEGATIVE)
[2021-05-18 14:10] VITALS: BP 130/67
== END 2021-05-18 14:09 | disposition home or self-care (01) ==
LOC: ED 11:45
DX: R11.2 Nausea with vomiting, unspecified (principal); F12.10 Cannabis abuse, uncomplicated; F13.10 Sedative, hypnotic or anxiolytic abuse, uncomplicated; Z91.14 Patient's other noncompliance with medication regimen; F17.200 Nicotine dependence, unspecified, uncomplicated
CPT/HCPCS: 36415; 80053; 80306; 81003; 83690; 85025; 96374; 96375; 99283; J2060; 81001; 87086

== ENCOUNTER 2021-05-31 11:20 | Emergency (ER) | payer MEDICARE, MEDICAID ==
[2021-05-31] MEDS ORDERED: SODIUM CHLORIDE 0.9% 1,000 ML IV STA ×2 (11:33→12:02)
[2021-05-31] MEDS ORDERED: ONDANSETRON 4 MG/2 ML VIAL IVP STA (11:34)
[2021-05-31 11:40] LABS: BASOPHILS # (AUTO) 0.1 10^3/uL (0.0-0.1); BASOPHILS % (AUTO) 0.9 %; EOSINOPHILS # (AUTO) 0.2 10^3/uL (0.0-0.7); EOSINOPHILS % (AUTO) 1.9 %; HCT - HEMATOCRIT 48.9 % (42.0-52.0); LYMPHOCYTES # (AUTO) 2.5 10^3/uL (1.5-3.5); LYMPHOCYTES % (AUTO) 23.9 %; MEAN CORPUSCULAR HEMOGLOBIN 31.1 pg (27.0-31.0); MEAN CORPUSCULAR HGB CONC 34.8 g/dL (32.0-36.0); MEAN CORPUSCULAR VOLUME 89.4 fL (80.0-94.0); MONOCYTES # (AUTO) 0.9 10^3/uL (0.0-1.0); MONOCYTES % (AUTO) 8.8 %; NEUTROPHILS # (AUTO) 6.8 10^3/uL (1.5-6.6); NEUTROPHILS % (AUTO) 64.3 %; PLT - PLATELET COUNT 370 10^3/uL (130-450); RED BLOOD COUNT 5.47 10^6/uL (4.70-6.10); RED CELL DISTRIBUTION WIDTH 12.9 % (12.0-15.0); WHITE BLOOD COUNT 10.6 x10^3/uL (4.8-10.8)
--- NOTE | 2021-05-31 11:47 | ED Physician Documentation ---
History of Present Illness - Stated complaint Stated Complaint: DIZZY/NAUSEA/VOMITING - Chief complaint Chief Complaint: Abd Pain - Additonal information Additional information: 61-year-old male presents emergency department for evaluation of 24 hours uncontrolled nausea and vomiting. He denies that anything preceded this. No fevers. Denies abdominal pain. He denies any cannabis use for at least 1 week. He has multiple ER visits for anxiety and running out of his BuSpar earlier though he is not complaining to this provider that he is anxious nor is he requesting a BuSpar refill. Review of Systems Constitutional: denies: Fever, Chills Cardiac: reports: Reviewed and negative Respiratory: reports: Reviewed and negative GI: reports: Nausea, Vomiting. denies: Abdominal Pain, Constipation, Diarrhea, Hematemesis : reports: Reviewed and negative Skin: reports: Reviewed and negative Musculoskeletal: reports: Reviewed and negative Neurologic: reports: Reviewed and negative PD PAST MEDICAL HISTORY - Past Medical History Cardiovascular: None Respiratory: None Neuro: Headaches Endocrine/Autoimmune: None GI: None : None HEENT: None Psych: Depression, Anxiety, Bipolar disorder Musculoskeletal: Osteoarthritis Derm: None - Past Surgical History Past Surgical History: Yes General: Appendectomy Ortho: Shoulder arthroplasty HEENT: Tonsil/Adenoidectomy - Present Medications Home Medications: Ambulatory Orders Medication Instructions Recorded Confirmed Quetiapine Fumarate [Seroquel Xr] 300 mg PO HS 09/10/20 05/18/21 busPIRone [Buspar] 15 mg PO BID #6 tablet 04/14/21 05/18/21 Ondansetron Odt [Zofran] 4 mg TL Q6H PRN #10 tablet 05/18/21 Ondansetron Odt [Zofran] 4 mg TL Q6H PRN #10 tablet 05/31/21 - Allergies Allergies/Adverse Reactions: Allergies Allergy/AdvReac Type Severity Reaction Status Date / Time meloxicam Allergy Respiratory Verified 05/31/21 11:28 - Social History Does the pt smoke?: Yes Smoking Status: Current every day smoker Does the pt drink ETOH?: No Does the pt have substance abuse?: No - Immunizations Immunizations are current?: Yes - POLST Patient has POLST: No PD ED PE NORMAL - General General: Alert and oriented X 3 - HEENT HEENT: Atraumatic, Moist mucous membranes - Neck Neck: Supple, no meningeal sign, No adenopathy - Cardiac Cardiac: RRR, No murmur, No gallop - Respiratory Respiratory: No respiratory distress, Clear bilaterally - Abdomen Abdomen: Normal bowel sounds, Soft, Non tender - Male Male : Deferred, Pt declined - Back Back: No CVA TTP, No spinal TTP - Derm Derm: Normal color, Warm and dry, No rash - Extremities Extremities: No deformity, No tenderness to palpate, Normal ROM s pain - Neuro Neuro: Alert and oriented X 3, database technician 2-12 intact Eye Opening: Spontaneous Motor: Obeys Commands Verbal: Oriented GCS Score: 15 Results - Vitals Vitals: Vital Signs - 24 hr 05/31/21 05/31/21 11:26 11:45 Temperature 36.0 C L Heart Rate 86 72 Respiratory 20 18 Rate Blood Pressure 128/85 H 129/94 H O2 Saturation 98 98 Oxygen O2 Source Room air - Labs Labs: Laboratory Tests 05/31/21 05/31/21 11:35 11:35 WBC 10.6 RBC 5.47 Hgb 17.0 Hct 48.9 MCV 89.4 MCH 31.1 H MCHC 34.8 RDW 12.9 Plt Count 370 MPV 10.0 Neut # (Auto) 6.8 H Lymph # (Auto) 2.5 [place] # (Auto) 0.9 Eos # (Auto) 0.2 Baso # (Auto) 0.1 Absolute Nucleated RBC 0.00 Nucleated RBC % 0.0 Sodium 139 Potassium 4.1 Chloride 107 Carbon Dioxide 16 L Anion Gap 16.0 H BUN 24 H Creatinine 1.2 Estimated GFR (MDRD) 62 L Glucose 133 H Calcium 10.3 Total Bilirubin 0.8 AST 19 ALT 18 Alkaline Phosphatase 56 Total Protein 8.3 H Albumin 4.9 Globulin 3.4 Albumin/Globulin Ratio 1.4 Lipase 58 H PD MEDICAL DECISION MAKING - ED course Complexity details: reviewed results, re-evaluated patient, considered different ial, d/w patient ED course: 7-year-old male presents emergency department for evaluation of uncontrolled nausea and vomiting for the last 24 hours. No fevers, hematemesis abdominal pain or diarrhea. He has multiple ER visits for anxiety as well as suspected cannabis overuse syndrome. He is frequently requested refill of BuSpar as he runs out early though he did not request this today. On initial presentation he was dry heaving and persistently nauseated. Screening labs did not reveal any leukocytosis. He has preserved renal and kidney function. We do note a decreased CO2 this is most consistent with hyperventilation and vomiting for the last 24 hours. While here in the emergency department he did receive 2 L of crystalloid as well as Zofran followed by droperidol. Once he received these medications he was now tolerating sips of clear liquids and feels ready for discharge. Prescription for Zofran is sent to the pharmacy. Deferred advanced imaging given lack of abdominal pain or fevers. Otherwise emergent worrisome return precautions otherwise discussed. Departure - Departure Disposition: Home, Self Care Clinical Impression: Nausea and vomiting Qualifiers: Vomiting type: unspecified Qualified Code(s): R11.2 - Nausea with vomiting, unspecified Condition: Stable Record reviewed to determine appropriate education?: Yes Instructions: ED Nausea Vomiting Prescriptions: Ondansetron Odt [Zofran] 4 mg TL Q6H PRN #10 tablet PRN Reason: Nausea / Vomiting Comments: David you are seen today in the emergency department for 24 hours of uncontrolled nausea and vomiting. Your screening labs today did not show any problems with your kidneys or liver. Your carbon dioxide level was a little low but we often see this in people that have been breathing fast and vomiting. You were given 2 L of IV fluids here in the emergency department. While here you also received some Zofran as well as a medication called droperidol. Following these 2 medications you have been able to sip clear liquids and are no longer vomiting. I sent prescription for Zofran to the [facility] in [place]. Over the next 24 hours I recommend that you take the Zofran under the tongue every 6-8 hours. Frequent sips of clear liquids and then tomorrow morning if feeling better can slowly advance your diet with simple foods such as bananas, rice applesauce or toast. I do recommend that you abstain from any alcohol or cannabis use. If symptoms not improve please return to the ER.
[2021-05-31 11:49] VITALS: BP 129/94
[2021-05-31 11:56] LABS: ALBUMIN 4.9 g/dL (3.2-5.5); ALBUMIN/GLOBULIN RATIO 1.4 (1.0-2.2); BILIRUBIN,TOTAL 0.8 mg/dL (0.2-1.0); CALCIUM 10.3 mg/dL (8.5-10.3); CREATININE 1.2 mg/dL (0.6-1.2); POTASSIUM 4.1 mmol/L (3.5-5.0); TOTAL PROTEIN 8.3 g/dL (6.7-8.2)
[2021-05-31] MEDS ORDERED: DROPERIDOL 5 MG/2 ML VIAL IVP STA (12:08)
[2021-05-31 13:34] LABS: BILIRUBIN,URINE NEGATIVE (NEGATIVE); GLUCOSE, URINE (UA) NEGATIVE (NEGATIVE); KETONES,URINE (UA) TRACE mg/dL (NEGATIVE); LEUKOCYTE ESTERASE, URINE NEGATIVE (NEGATIVE); NITRITE,URINE NEGATIVE (NEGATIVE); OCCULT BLOOD,URINE NEGATIVE (NEGATIVE); PH,URINE 5.5 PH (5.0-7.5); PROTEIN,URINE NEGATIVE (NEGATIVE); UROBILINOGEN,URINE 0.2 (NORMAL) E.U./dL (NORMAL)
[2021-05-31 13:35] LABS: CLARITY,URINE CLEAR (CLEAR)
== END 2021-05-31 13:34 | disposition home or self-care (01) ==
LOC: ED 11:20
DX: R11.2 Nausea with vomiting, unspecified (principal); F17.200 Nicotine dependence, unspecified, uncomplicated
CPT/HCPCS: 36415; 80053; 81001; 81003; 83690; 85025; 87086; 96374; 96375; 99283

== ENCOUNTER 2021-06-26 11:08 | Emergency (ER) | payer MEDICARE, MEDICAID ==
[2021-06-26 11:40] LABS: BASOPHILS # (AUTO) 0.1 10^3/uL (0.0-0.1); BASOPHILS % (AUTO) 0.6 %; EOSINOPHILS # (AUTO) 0.1 10^3/uL (0.0-0.7); EOSINOPHILS % (AUTO) 0.8 %; HCT - HEMATOCRIT 46.1 % (42.0-52.0); HGB - HEMOGLOBIN 15.1 g/dL (14.0-18.0); LYMPHOCYTES # (AUTO) 2.2 10^3/uL (1.5-3.5); LYMPHOCYTES % (AUTO) 16.7 %; MEAN CORPUSCULAR HEMOGLOBIN 30.5 pg (27.0-31.0); MEAN CORPUSCULAR HGB CONC 32.8 g/dL (32.0-36.0); MEAN CORPUSCULAR VOLUME 93.1 fL (80.0-94.0); MEAN PLATELET VOLUME 9.9 fL (7.4-11.4); MONOCYTES # (AUTO) 1.2 10^3/uL (0.0-1.0); MONOCYTES % (AUTO) 9.2 %; NEUTROPHILS # (AUTO) 9.4 10^3/uL (1.5-6.6); NEUTROPHILS % (AUTO) 72.3 %; PLT - PLATELET COUNT 304 10^3/uL (130-450); RED BLOOD COUNT 4.95 10^6/uL (4.70-6.10); RED CELL DISTRIBUTION WIDTH 14.6 % (12.0-15.0)
[2021-06-26 11:57] LABS: ALBUMIN 4.7 g/dL (3.2-5.5); ALBUMIN/GLOBULIN RATIO 1.3 (1.0-2.2); BILIRUBIN,TOTAL 0.7 mg/dL (0.2-1.0); CALCIUM 10.9 mg/dL (8.5-10.3); CREATININE 1.1 mg/dL (0.6-1.2); POTASSIUM 4.2 mmol/L (3.5-5.0); TOTAL PROTEIN 8.2 g/dL (6.7-8.2)
[2021-06-26] MEDS ORDERED: SODIUM CHLORIDE 0.9% 1,000 ML IV STA (12:37)
[2021-06-26] MEDS ORDERED: DROPERIDOL 5 MG/2 ML VIAL IVP STA (12:37)
--- NOTE | 2021-06-26 12:38 | ED Physician Documentation ---
PD HPI NVD - Stated complaint Stated Complaint: N/V SOA - Chief complaint Chief Complaint: Abd Pain - History obtained from History obtained from: Patient - History of Present Illness Timing - onset: Last night Timing - duration: Days (1/2) Timing - details: Abrupt onset, Still present Associated symptoms: Abdominal pain (upper abdomen). No: Fever Contributing factors: No: Sick contact, Bad food, Alcohol use (but does use cannibis fairly regularly the past 2-3 weeks. Had been off of it for several months prior to that.) Improved by: No: Vomiting Worsened by: Eating Similar symptoms before: No diagnosis (has had similar abrupt symptoms in the past, seen in ER several times in the past, with suspicion of cannibis hyperemesis.) Review of Systems Constitutional: denies: Fever, Chills Nose: denies: Rhinorrhea / runny nose, Congestion Throat: denies: Sore throat Cardiac: denies: Chest pain / pressure, Palpitations Respiratory: denies: Dyspnea, Cough GI: reports: Abdominal Pain, Nausea, Vomiting. denies: Diarrhea, Hematemesis Neurologic: reports: Generalized weakness. denies: Focal weakness, Numbness, Near syncope Psychiatric: reports: Anxiety PD PAST MEDICAL HISTORY - Past Medical History Past Medical History: Yes Cardiovascular: None Respiratory: None Neuro: Headaches Endocrine/Autoimmune: None GI: None : None HEENT: None Psych: Depression, Anxiety, Bipolar disorder Musculoskeletal: Osteoarthritis Derm: None - Past Surgical History Past Surgical History: Yes General: Appendectomy Ortho: Shoulder arthroplasty HEENT: Tonsil/Adenoidectomy - Present Medications Home Medications: Ambulatory Orders Medication Instructions Recorded Confirmed Quetiapine Fumarate [Seroquel Xr] 300 mg PO HS 09/10/20 06/26/21 busPIRone [Buspar] 15 mg PO BID #6 tablet 04/14/21 06/26/21 Famotidine [Pepcid] 20 mg PO DAILY #10 tablet 06/26/21 Prochlorperazine Supp [Compazine 25 mg GA Q6H PRN #6 supp 06/26/21 Supp] Promethazine [Phenergan] 25 mg PO Q6H PRN #20 tab 06/26/21 - Allergies Allergies/Adverse Reactions: Allergies Allergy/AdvReac Type Severity Reaction Status Date / Time meloxicam Allergy Respiratory Verified 06/26/21 11:22 - Social History Does the pt smoke?: Yes Smoking Status: Current every day smoker Does the pt drink ETOH?: No Does the pt have substance abuse?: No - Immunizations Immunizations are current?: Yes - POLST Patient has POLST: No PD ED PE NORMAL - Vitals Vital signs reviewed: Yes - General General: Alert and oriented X 3, Well developed/nourished, Other (appears in discomfort, with dry heaving holding emesis bag. ) - HEENT HEENT: Pharynx benign. No: Moist mucous membranes - Neck Neck: Supple, no meningeal sign, No adenopathy - Cardiac Cardiac: RRR (regular but tachycardic.), No murmur - Respiratory Respiratory: No respiratory distress, Clear bilaterally - Abdomen Abdomen: Soft, Non distended, No organomegaly, Other (tender epigastric area with even light palpation. No percussion tenderness. Lower abd not tender. ) - Back Back: No CVA TTP - Derm Derm: Normal color, Warm and dry - Extremities Extremities: Normal ROM s pain, No edema - Neuro Neuro: Alert and oriented X 3, No motor deficit, Normal speech Results - Vitals Vitals: Oxygen O2 Source Room air - Labs Labs: Laboratory Tests 06/26/21 06/26/21 06/26/21 11:34 11:34 12:57 WBC 13.0 H RBC 4.95 Hgb 15.1 Hct 46.1 MCV 93.1 MCH 30.5 MCHC 32.8 RDW 14.6 Plt Count 304 MPV 9.9 Neut # (Auto) 9.4 H Lymph # (Auto) 2.2 [place] # (Auto) 1.2 H Eos # (Auto) 0.1 Baso # (Auto) 0.1 Absolute Nucleated RBC 0.00 Nucleated RBC % 0.0 Sodium 141 Potassium 4.2 Chloride 101 Carbon Dioxide 24 Anion Gap 16.0 H BUN 29 H Creatinine 1.1 Estimated GFR (MDRD) 68 L Glucose 193 H Calcium 10.9 H Total Bilirubin 0.7 AST 52 H ALT 139 H Alkaline Phosphatase 63 Total Protein 8.2 Albumin 4.7 Globulin 3.5 Albumin/Globulin Ratio 1.3 Lipase 88 H Urine Color YELLOW Urine Clarity CLEAR Urine pH 8.5 H Ur Specific [place] 1.015 Urine Protein NEGATIVE Urine Glucose (UA) NEGATIVE Urine Ketones NEGATIVE Urine Occult Blood NEGATIVE Urine Nitrite NEGATIVE Urine Bilirubin NEGATIVE Urine Urobilinogen 0.2 (NORMAL) Ur Leukocyte Esterase NEGATIVE Ur Microscopic Review NOT INDICATED Urine Culture Comments NOT INDICATED PD MEDICAL DECISION MAKING - ED course Complexity details: re-evaluated patient (responded well to Ativan and Inapsine, Toradol. ), considered differential (sounds likely to be cannibis hyperemesis given character of symptoms and response to particular meds. ), d/w patient Departure - Departure Disposition: 01 Home, Self Care Clinical Impression: Cannabinoid hyperemesis syndrome Nausea & vomiting Qualifiers: Vomiting type: unspecified Qualified Code(s): R11.2 - Nausea with vomiting, unspecified Condition: Stable Record reviewed to determine appropriate education?: Yes Instructions: ED Nausea Vomiting Prescriptions: Prochlorperazine Supp [Compazine Supp] 25 mg GA Q6H PRN #6 supp PRN Reason: Nausea / Vomiting Famotidine [Pepcid] 20 mg PO DAILY #10 tablet Promethazine [Phenergan] 25 mg PO Q6H PRN #20 tab PRN Reason: Nausea / Vomiting Comments: Small frequent fluids and bland food initially today and. Progress diet as tolerated into tomorrow. Use promethazine/Phenergan every 6-8 hours if needed for nausea. With the repetitive vomiting, you know that would have an irritated stomach so add famotidine acid reducing medicine daily for the next 7 to 10 days. If you have nausea and vomiting and unable to keep down oral nausea medicine, you can try Compazine suppository instead. These episodes of significant nausea and vomiting sometimes can relate to an adverse effect of cannabis. Please avoid any cannabis if you are taking any. Recheck if not improved over the next couple of days and return if worse. I transmitted your prescriptions to [facility] pharmacy. Discharge Date/Time: 06/26/21 14:20
[2021-06-26] MEDS ORDERED: LORazepam 2 MG/ML VIAL IVP STA (12:46)
[2021-06-26] MEDS ORDERED: KETOROLAC 15 MG/ML VIAL IVP STA (12:47)
[2021-06-26 13:54] LABS: BILIRUBIN,URINE NEGATIVE (NEGATIVE); GLUCOSE, URINE (UA) NEGATIVE (NEGATIVE); KETONES,URINE (UA) NEGATIVE (NEGATIVE); LEUKOCYTE ESTERASE, URINE NEGATIVE (NEGATIVE); NITRITE,URINE NEGATIVE (NEGATIVE); OCCULT BLOOD,URINE NEGATIVE (NEGATIVE); PH,URINE 8.5 PH (5.0-7.5); PROTEIN,URINE NEGATIVE (NEGATIVE); UROBILINOGEN,URINE 0.2 (NORMAL) E.U./dL (NORMAL)
[2021-06-26 14:07] LABS: CLARITY,URINE CLEAR (CLEAR)
[2021-06-26 14:09] VITALS: BP 98/75
== END 2021-06-26 14:20 | disposition home or self-care (01) ==
LOC: ED 11:08
DX: R11.2 Nausea with vomiting, unspecified (principal); F17.200 Nicotine dependence, unspecified, uncomplicated
CPT/HCPCS: 36415; 80053; 81003; 83690; 85025; 96374; 96375; 99282; 99283; J2060; 81001; 87086

== ENCOUNTER 2021-07-24 08:45 | Emergency (ER) | payer MEDICARE, MEDICAID ==
[2021-07-24] MEDS ORDERED: DROPERIDOL 5 MG/2 ML VIAL IVP STA (09:13)
[2021-07-24] MEDS ORDERED: LORazepam 2 MG/ML VIAL IVP STA (09:13)
[2021-07-24] MEDS ORDERED: SODIUM CHLORIDE 0.9% 1,000 ML IV STA ×2 (09:13→09:14)
--- NOTE | 2021-07-24 09:17 | ED Physician Documentation ---
PD HPI NVD - Stated complaint Stated Complaint: VOMITING - Chief complaint Chief Complaint: Abd Pain - History obtained from History obtained from: Patient, Family (mother) - History of Present Illness Timing - onset: Yesterday (about 16:30 yesterday and has continued through the night, still into this morning. With some congestion, sore throat and chills, which is different from prior episodes of hyperemesis.) Timing - duration: Hours (15) Timing - details: Abrupt onset, Still present Associated symptoms: Dizzy (lightheaded this morning.), Loss of appetite. No: Fever (but chills), Abdominal pain, Near syncope / syncope, Dysuria Contributing factors: Sick contact (His mother had nausea vomiting and sore throat about 4 to 5 days ago that lasted for 3 days. She is now improved.), Other (He has had episodes of hyperemesis seemingly related to either running out of medications of on some occasions (BuSpar) or possible cannabis hyperemesis. Has ER visits for similar about every 1-2 months.). No: Bad food, Travel Improved by: No: Vomiting Worsened by: Eating Similar symptoms before: No diagnosis (episodes of nausea and intractable vomiting about every 1-2 months, from perhaps cannibis hyperemesis or med withdrawal if runs out of Buspar in the past.) Recently seen: Emergency Dept Review of Systems Constitutional: reports: Fatigue. denies: Fever, Chills Nose: reports: Congestion. denies: Rhinorrhea / runny nose Throat: denies: Sore throat Respiratory: reports: Cough. denies: Dyspnea GI: reports: Nausea, Vomiting. denies: Abdominal Pain, Diarrhea Skin: denies: Rash, Lesions Neurologic: reports: Generalized weakness, Headache. denies: Near syncope, Syncope, Altered mental status, Head injury PD PAST MEDICAL HISTORY - Past Medical History Cardiovascular: None Respiratory: None Neuro: Headaches Endocrine/Autoimmune: None GI: None : None HEENT: None Psych: Depression, Anxiety, Bipolar disorder Musculoskeletal: Osteoarthritis Derm: None - Past Surgical History Past Surgical History: Yes General: Appendectomy Ortho: Shoulder arthroplasty HEENT: Tonsil/Adenoidectomy - Present Medications Home Medications: Ambulatory Orders Medication Instructions Recorded Confirmed Quetiapine Fumarate [Seroquel Xr] 300 mg PO HS 09/10/20 06/26/21 busPIRone [Buspar] 15 mg PO BID #6 tablet 04/14/21 06/26/21 Famotidine [Pepcid] 20 mg PO DAILY #10 tablet 06/26/21 Prochlorperazine Supp [Compazine 25 mg [place] Q6H PRN #6 supp 06/26/21 Supp] Promethazine [Phenergan] 25 mg PO Q6H PRN #20 tab 06/26/21 Ondansetron Odt [Zofran] 4 mg TL Q6H PRN #10 tablet 07/24/21 Promethazine [Phenergan] 25 mg PO Q6H PRN #25 tab 07/24/21 - Allergies Allergies/Adverse Reactions: Allergies Allergy/AdvReac Type Severity Reaction Status Date / Time meloxicam Allergy Respiratory Verified 07/24/21 08:55 - Social History Does the pt smoke?: Yes Smoking Status: Current every day smoker Does the pt drink ETOH?: No Does the pt have substance abuse?: No - Immunizations Immunizations are current?: Yes - POLST Patient has POLST: No PD ED PE NORMAL - Vitals Vital signs reviewed: Yes - General General: Alert and oriented X 3, Well developed/nourished, Other (appears uncomfortable and is holding emesis bag with frequent dry heaving with just minimal saliva output. Forceful heaving though. ) - HEENT HEENT: Pharynx benign. No: Moist mucous membranes - Neck Neck: Supple, no meningeal sign, No adenopathy - Cardiac Cardiac: RRR, No murmur - Respiratory Respiratory: No respiratory distress, Clear bilaterally - Abdomen Abdomen: Normal bowel sounds, Soft, Non distended, Other (mild tender without guarding epigastric area. Not tender right upper nor lower areas. Not distended. ) - Derm Derm: Warm and dry. No: Normal color (mildly pale. ) - Extremities Extremities: No tenderness to palpate, Normal ROM s pain, No edema, No calf tenderness / cord Results - Vitals Vitals: Vital Signs - 24 hr 07/24/21 07/24/21 07/24/21 08:55 09:53 11:19 Temperature 37.1 C Heart Rate 99 104 H 107 H Respiratory 18 17 Rate Blood Pressure 117/77 113/64 O2 Saturation 97 97 99 07/24/21 12:07 Temperature 37.0 C Heart Rate 90 Respiratory 20 Rate Blood Pressure 105/80 O2 Saturation 99 Oxygen O2 Source Room air - Labs Labs: Laboratory Tests 07/24/21 07/24/21 07/24/21 08:58 08:58 09:20 WBC 11.2 H RBC 4.84 Hgb 15.2 Hct 44.8 MCV 92.6 MCH 31.4 H MCHC 33.9 RDW 13.6 Plt Count 315 MPV 10.2 Neut # (Auto) 7.8 H Lymph # (Auto) 2.2 Mellette # (Auto) 0.9 Eos # (Auto) 0.2 Baso # (Auto) 0.1 Absolute Nucleated RBC 0.00 Nucleated RBC % 0.0 Sodium 138 Potassium 4.1 Chloride 105 Carbon Dioxide 21 Anion Gap 12.0 BUN 18 Creatinine 1.0 Estimated GFR (MDRD) 76 L Glucose 115 H Calcium 9.8 Magnesium 2.2 Total Bilirubin 0.7 AST 25 ALT 27 Alkaline Phosphatase 61 Total Protein 7.6 Albumin 4.6 Globulin 3.0 Albumin/Globulin Ratio 1.5 Lipase 62 H SARS-CoV-2 (PCR) NOT DETECTED PD MEDICAL DECISION MAKING - ED course Complexity details: re-evaluated patient (he is feeling better with IV fluids and meds. Able to take PO fluids okay. He denies being out of Rx meds. ), considered differential (prior episodes of hyperemesis, but current with chills and some URI symptoms. Mother had GI symptoms for 2-3 days a week ago. May be a combination of prior hyperemesis along with viral GE. ), d/w patient Departure - Departure Disposition: 01 Home, Self Care Clinical Impression: Intractable nausea and vomiting, Dehydration Condition: Stable Record reviewed to determine appropriate education?: Yes Instructions: ED Nausea Vomiting Prescriptions: Promethazine [Phenergan] 25 mg PO Q6H PRN #25 tab PRN Reason: Nausea / Vomiting Ondansetron Odt [Zofran] 4 mg TL Q6H PRN #10 tablet PRN Reason: Nausea / Vomiting Comments: Small frequent fluids today. Chaves diet with starches and carbohydrates initially and progress as tolerated. Promethazine every 6-8 hours for nausea for the next 2 to 3 days and add ondansetron if needed. After that fall back to just as needed medications for nausea. Tylenol if needed for pains. Return to the ER if not improved well over the next few days. I sent your prescriptions to [facility] pharmacy. This may be similar or some component of the episodic nausea and vomiting you have had in the past but may also have a viral gastroenteritis associated as well. As such anticipate some nausea still for another couple of days and so the regular antiemetic dosing would be appropriate. Discharge Date/Time: 07/24/21 12:07
[2021-07-24 09:23] LABS: BASOPHILS # (AUTO) 0.1 10^3/uL (0.0-0.1); BASOPHILS % (AUTO) 0.7 %; EOSINOPHILS # (AUTO) 0.2 10^3/uL (0.0-0.7); EOSINOPHILS % (AUTO) 1.7 %; HCT - HEMATOCRIT 44.8 % (42.0-52.0); HGB - HEMOGLOBIN 15.2 g/dL (14.0-18.0); LYMPHOCYTES # (AUTO) 2.2 10^3/uL (1.5-3.5); LYMPHOCYTES % (AUTO) 19.8 %; MEAN CORPUSCULAR HEMOGLOBIN 31.4 pg (27.0-31.0); MEAN CORPUSCULAR HGB CONC 33.9 g/dL (32.0-36.0); MEAN CORPUSCULAR VOLUME 92.6 fL (80.0-94.0); MEAN PLATELET VOLUME 10.2 fL (7.4-11.4); MONOCYTES # (AUTO) 0.9 10^3/uL (0.0-1.0); MONOCYTES % (AUTO) 8.1 %; NEUTROPHILS # (AUTO) 7.8 10^3/uL (1.5-6.6); NEUTROPHILS % (AUTO) 69.3 %; PLT - PLATELET COUNT 315 10^3/uL (130-450); RED BLOOD COUNT 4.84 10^6/uL (4.70-6.10); RED CELL DISTRIBUTION WIDTH 13.6 % (12.0-15.0); WHITE BLOOD COUNT 11.2 x10^3/uL (4.8-10.8)
[2021-07-24 09:40] LABS: ALBUMIN 4.6 g/dL (3.2-5.5); ALBUMIN/GLOBULIN RATIO 1.5 (1.0-2.2); BILIRUBIN,TOTAL 0.7 mg/dL (0.2-1.0); CALCIUM 9.8 mg/dL (8.5-10.3); MAGNESIUM 2.2 mg/dL (1.7-2.8); POTASSIUM 4.1 mmol/L (3.5-5.0); TOTAL PROTEIN 7.6 g/dL (6.7-8.2)
[2021-07-24 12:08] VITALS: BP 105/80
== END 2021-07-24 12:07 | disposition home or self-care (01) ==
LOC: ED 08:45
DX: R11.2 Nausea with vomiting, unspecified (principal); E86.0 Dehydration; F17.200 Nicotine dependence, unspecified, uncomplicated
CPT/HCPCS: 36415; 80053; 83690; 83735; 85025; 87635; 96361; 96374; 99282; 99284; J2060

== ENCOUNTER 2021-08-09 02:39 | Outpatient (CLI) | payer MEDICARE, MEDICAID | END 2021-08-09 02:40 | disposition critical access hospital (66) | LOC: EMS 02:39 | DX: I46.9 Cardiac arrest, cause unspecified (principal) | CPT/HCPCS: A0425; A0433 ==

== ENCOUNTER 2021-08-09 02:51 | Emergency (ER) | payer MEDICARE, MEDICAID ==
[2021-08-09 03:29] VITALS: BP 0/0
--- NOTE | 2021-08-09 03:43 | ED Physician Documentation ---
PD HPI CPR - Stated complaint Stated Complaint: CPR - Chief complaint Chief Complaint: Resp - History obtained from History obtained from: Family, EMS - Additional information Additional information: The patient is brought to the emergency department by EMS after being found unresponsive by his . states that the patient seemed to be fine today but this evening, stated he did not feel well and went to bed. She states that at first, he was breathing heavily, but then, she noticed it sounded like he had fluid in his lungs and was not breathing very well. states she started CPR and called EMS. When EMS arrived, they found the patient actually did have a pulse and what appeared to be a sinus tachycardia, but was obtunded and moaning. They state that they found the patient's abdomen to be quite distended and patient began vomiting. Intubation was attempted unsuccessfully and ultimately, a Steven tube was placed. At some point during this time, the patient went into ventricular fibrillation. He was shocked a couple of times and went out of V. fib that was in PEA then asystole after this. He received a total of 6 doses of epinephrine in route. CPR was begun sometime between 215 and 220. The patient has not been able to give any information this entire time. Once CPR was started, the patient never did have a perfusing rhythm, and patient has been undergoing CPR ever since. Medics do state that the patient was also given 300 mg of amiodarone IV, as well as 2 L of fluid. Patient is unable to offer any information at this time, as he is unconscious and undergoing CPR. Review of Systems Unable to obtain: Unresponsive PD PAST MEDICAL HISTORY - Past Medical History Cardiovascular: None Respiratory: None Neuro: Headaches Endocrine/Autoimmune: None GI: None : None HEENT: None Psych: Depression, Anxiety, Bipolar disorder Musculoskeletal: Osteoarthritis Derm: None - Past Surgical History Past Surgical History: Yes General: Appendectomy Ortho: Shoulder arthroplasty HEENT: Tonsil/Adenoidectomy - Present Medications Home Medications: Ambulatory Orders Medication Instructions Recorded Confirmed Quetiapine Fumarate [Seroquel Xr] 300 mg PO HS 09/10/20 06/26/21 busPIRone [Buspar] 15 mg PO BID #6 tablet 04/14/21 06/26/21 Famotidine [Pepcid] 20 mg PO DAILY #10 tablet 06/26/21 Prochlorperazine Supp [Compazine 25 mg [place] Q6H PRN #6 supp 06/26/21 Supp] Promethazine [Phenergan] 25 mg PO Q6H PRN #20 tab 06/26/21 Ondansetron Odt [Zofran] 4 mg TL Q6H PRN #10 tablet 07/24/21 Promethazine [Phenergan] 25 mg PO Q6H PRN #25 tab 07/24/21 - Allergies Allergies/Adverse Reactions: Allergies Allergy/AdvReac Type Severity Reaction Status Date / Time meloxicam Allergy Respiratory Verified 07/24/21 08:55 - Social History Does the pt smoke?: Yes Smoking Status: Current every day smoker Does the pt drink ETOH?: No Does the pt have substance abuse?: No - Immunizations Immunizations are current?: Yes - POLST Patient has POLST: No PD ED PE NORMAL - Vitals Vital signs reviewed: Yes - General General: Other (The patient appears dusky and is completely unresponsive and without signs of life.) - HEENT HEENT: Atraumatic, Moist mucous membranes (Vomit residue around mouth, Steven tube in place), Other (Pupils are fixed and dilated) - Neck Neck: Other (Neck veins distended) - Cardiac Cardiac: Other (No pulses or heart tones) - Respiratory Respiratory: Other (Bilateral rales, no spontaneous respiratory effort) - Abdomen Abdomen: Other (Markedly distended abdomen.) - Derm Derm: Other (Dusky, cool) - Extremities Extremities: No deformity, No edema - Neuro Neuro: Other (No neurologic activity) - Psych Psych: Normal mood, Normal affect Results - Vitals Vitals: Vital Signs - 24 hr 08/09/21 08/09/21 02:51 02:54 Temperature 0 C L 0 C L Heart Rate 0 L 0 L Respiratory 0 L Rate Blood Pressure 0/0 L 0/0 L O2 Saturation 0 L 0 L Oxygen O2 Source Room air PD MEDICAL DECISION MAKING - ED course Complexity details: reviewed old records, considered differential, d/w family ED course: CPR had been in progress it was initially thought for approximately 15 minutes when the patient arrived, and so CPR was continued after patient was found to continue to be pulseless and in asystole on the monitor upon arrival here. He was also given another milligram of epinephrine on arrival. We went through several more cycles of CPR, epinephrine, and pulse checks, which yielded no pulse or electrical activity from the heart. In the meantime, I was able to speak with the patient's and get a clear picture of the history and what happened tonight, and additionally, the medics were able to check the records and found that they had started CPR actually between 215 and 220. The patient, unfortunately, did not respond to any efforts to revive him and ultimately, he was pronounced at 0303. The runway model did state they would like to take the case and patient's body was picked up for autopsy from emergency department. - Critical Care Time(min): 40 Comments: Critical care time was necessary, secondary to high probability of imminent decline and , secondary to cardiac and respiratory arrest. Time Includes: Direct patient care, Review records, Reassess patient, Document care, Coordinate care, Family consult for tx dec, See progress note Data interpretation: Pulse ox, Cardiac output Procedures excluded from critical care time: See progress note (CPR performed by staff under my supervision, but no CPR performed by EDMD.) Departure - Departure Disposition: 20 Clinical Impression: Cardiac arrest Condition: Critical
[2021-08-09] MEDS ORDERED: EPINEPHrine ABBOJECT 1 MG/10 ML SYRINGE IVP STA ×5 (05:22→05:25)
== END 2021-08-09 05:15 | disposition expired ==
LOC: ED 02:51
DX: I46.9 Cardiac arrest, cause unspecified (principal); F17.200 Nicotine dependence, unspecified, uncomplicated
CPT/HCPCS: 36415; 92950; 99291